=== PATIENT | female | born 1945 | race Caucasian/White ===

== ENCOUNTER 2017-01-18 12:56 | Inpatient (IN) | payer BC, MEDICARE ==
[~2017-01-18] VITALS: Ht 167.6 cm; Wt 116.1 kg
[~2017-01-18 12:56] MED LIST: ACET-2890 PO; ALBU1.252 AEROSOL; ALBU8.5H INH; CEPH-583 PO; CINN500C14 PO; CYAN500T2 PO; DIPH25TA25 PO; FLUT1DIS3 INH; LEVO50TA11 PO; LISI-621 PO; MAGN500C4 PO; MELO-267 PO; MULT-933 PO; POTA-12 PO; TRIA1TAB3 PO
--- OUTSIDE RECORDS SUMMARY | 2017-01-18 13:01 | XMS REPORT | Continuity of Care Document ---
Demographics Preferred Language Unknown Marital Status Unknown Protestant Affiliation Unknown Race Unknown Ethnic Group Unknown Author Author [facility] Organization [facility] Address Unknown Phone Unavailable Allergies Medications Problems Date Dx Coded Attending Type Code Diagnosis Diagnosed By 01/13/2017 TERESITA FUNES DF M43.16 Spondylolisthesis, lumbar region 01/13/2017 TERESITA FUNES DF M54.5 Low back pain Procedures Results Encounters ACCT No. Visit Date/Time Discharge Status Pt. Type Provider Facility Loc./Unit Complaint [id number] 12/15/2016 10:40:00 ACT Unknown [id number] 10/09/2016 09:48:00 ACT Unknown [id number] 08/17/2016 14:44:00 ACT Unknown [id number] 08/17/2016 14:16:00 ACT Unknown [id number] 08/17/2016 14:04:00 ACT Unknown [id number] 03/18/2016 08:45:00 ACT Unknown [id number] 02/12/2016 11:10:00 ACT Unknown [id number] 02/12/2016 11:10:00 ACT Unknown [id number] 01/15/2016 11:35:00 ACT Unknown [id number] 10/31/2015 17:57:00 ACT Unknown [id number] 11/14/2014 09:45:00 ACT Unknown [id number] 11/06/2014 08:06:00 ACT Unknown [id number] 07/20/2014 12:56:00 ACT Unknown [id number] 07/09/2014 11:23:00 ACT Unknown
--- OUTSIDE RECORDS SUMMARY | 2017-01-18 13:02 | XMS REPORT | Continuity of Care Document ---
Author Author [facility] Organization [facility] Address Unknown Phone Unavailable Support Name Relationship Address Phone CAROLINAELIASE DO Caregiver [address] [place] [address] [address] [place] [address] VICKY BEAULIEU DO Caregiver [facility] [address] [place], [place] [id number] OSCAR PETERS MD Caregiver [address] [phone] AYLEEN STOVALL Next Of Kin [address] [place] [address] Insurance Providers Payer Name Policy Number Subscriber Name Relationship [employer] Other [id number] Dot Stovall 16 Self Medicare Part A Only [id number] Dot Stovall 16 Self Advance Directives Directive Response Recorded Date/Time Dr Cody Resuscitation Status Full Code 08/14/14 6:40pm Chief Complaint and Reason for Visit Chief Complaint CHEST PAIN,HYPOXIA Reason for Visit Chest pain Hypoxia Chest pain Hypoxia Obese Hypertension Hypothyroid CAD (coronary artery disease) Asthma Sleep apnea PUD (peptic ulcer disease) Osteoarthritis Problems Medical Problems Problem Onset Date Status Chest pain 08/14/2014 Active Hypoxia Unknown Active Chest pain Unknown Active Hypoxia Unknown Active Obese Unknown Active Hypertension Unknown Active Hypothyroid Unknown Active CAD (coronary artery disease) Unknown Active Asthma Unknown Active Sleep apnea Unknown Active PUD (peptic ulcer disease) Unknown Active Osteoarthritis Unknown Active Medications Medication Dose Route Sig Days/Qty Instructions Order Date Discontinued Date Status Levothyroxine Sodium 25 Mcg PO DAILY 02/05/10 Active [Multivitamin] 02/05/10 Active Acetaminophen 1 PO DAILY 08/14/14 Active Gluc/Homer-MSM#1/Vit C/Robbie/Bor 1 DAILY 08/14/14 Active Lisinopril 10 Mg PO DAILY 08/14/14 Active Hydrocodone/Acetaminophen 1 Tab PO Q4H PRN PAIN 30 Qty 08/15/14 Active Social History Social History Problem Response Recorded Date/Time Smoking Status Former smoker 08/14/2014 7:55pm When did patient START smoking? AGE 16 08/14/2014 7:55pm When did patient STOP smoking? OCT 13, 1985 08/14/2014 7:55pm Hx Substance Use No 08/14/2014 6:04pm Hx Alcohol Use No 08/14/2014 6:04pm Has the pt used tobacco in the last 12 months No 08/14/2014 7:55pm Hospital Discharge Instructions Instructions: Care Instructions: Reason for Hospitalization: Chest pain I was in the hospital because (patient own words): "I HAVE PAIN IN MY LEFT BACK AND CHEST ALL DAY" Discharge Diet: as tolerated Discharge Activity: as tolerated--may return to work on Wednesday Follow Up Appointments: see Dr Peters for f/u in 1 week Follow up appointment with Dr. Peters scheduled for 08/27/14 at 9:15 a.m. Patient Instructions: should your symptoms return you could contact Dr Peters through the office or return to the ED for emergent evaluation Condition at time of discharge: Good Durable Medical Equipment: Thigh high SALVADOR hose Condition at time of discharge: Good Good Good General Information: n/a Condition at time of discharge: Fair Plan of Care Discharge Date 08/15/14 4:20pm Disposition 01 DISCHARGED HOME, SELF-CARE Instructions/Education Provided DI for Costochondritis DI for Chest Pain DI for Hypoxia Prescriptions See Medications Section Functional Status Query Response Date Recorded Physical Hygiene Self August 14, 2014 6:04pm Disabilities None August 14, 2014 6:04pm Devices Used None August 14, 2014 6:04pm Dressing Self August 14, 2014 6:04pm Ambulation Self August 14, 2014 6:04pm Diet Self August 14, 2014 6:04pm Mental Status Alert Oriented August 14, 2014 6:35pm Disabilities None August 14, 2014 6:04pm Devices Used None August 14, 2014 6:04pm Physical Hygiene Self August 14, 2014 6:04pm Dressing Self August 14, 2014 6:04pm Ambulation Self August 14, 2014 6:04pm Diet Self August 14, 2014 6:04pm Allergies, Adverse Reactions, Alerts Allergen Type Severity Reaction Status Last Updated Iodine Allergy Unknown WELTS, PASSES OUT WHEN INJECTED Active 08/14/14 Immunizations Name Given Type Hx Influenza Vaccination No Historical Hx Pneumococcal Vaccination N "2006 OR 2007" Historical Hx Influenza Vaccination No Historical Vital Signs Acute Vital Signs Vital Response Date/Time Temperature (Fahrenheit) 97.2 deg F (96.8 - 99.1) Temperature (Calculated Celsius) 36.06757 degrees C (36.0 - 37.3) Temperature Source Oral Pulse Rate (adult) 71 bpm (60 - 100) Respiratory Rate 18 breaths/min (10 - 20) O2 Sat by Pulse Oximetry 93 % (90 - 100) Oxygen Delivery Method Nasal Cannula Height 5 ft 6 in Weight 267 lb Body Mass Index 43.0 kg/m^2 Results Test Source Date Result Interp. Ref. Range Comments Activated Partial Thromboplast Time August 14, 2014 5:23pm 22.4 SEC L 24-36 Alanine Aminotransferase (ALT/SGPT) August 15, 2014 5:14am 34 U/L N 9- 52 Albumin August 15, 2014 5:14am 3.6 G/DL N 3.5-5.0 Albumin/Globulin Ratio August 15, 2014 5:14am 1.1 RATIO N 1.1-2.2 Alkaline Phosphatase August 15, 2014 5:14am 91 U/L N 38-126 Anion Gap August 15, 2014 5:14am 7 MEQ/L N 5-15 Arterial Blood Base Excess January 07, 2009 9:04pm 7.1 MMOL/L H -2.0-2.0 Is the patient on room air? YWhat is the Source? (Liters or Percent) ROOM AIR Arterial Blood HCO3 January 07, 2009 9:04pm 33 MEQ/L H 22-26 Is the patient on room air? YWhat is the Source? (Liters or Percent) ROOM AIR Arterial Blood Oxygen Content January 07, 2009 9:04pm Not Performed - Arterial Blood Partial Pressure CO2 January 07, 2009 9:04pm 54 MMHG H 34- 45 Is the patient on room air? YWhat is the Source? (Liters or Percent) ROOM AIR Arterial Blood Total CO2 January 07, 2009 9:04pm 35.1 MEQ/L H 23-27 Is the patient on room air? YWhat is the Source? (Liters or Percent) ROOM AIR Arterial Blood pH January 07, 2009 9:04pm 7.400 N 7.350-7.450 Is the patient on room air? YWhat is the Source? (Liters or Percent) ROOM AIR Arterial Blood pO2 at Patient Temp January 07, 2009 9:04pm 53 MMHG L 80- 100 Is the patient on room air? YWhat is the Source? (Liters or Percent) ROOM AIR Aspartate Amino Transf (AST/SGOT) August 15, 2014 5:14am 30 U/L DN 14- 36 B-Type Natriuretic Peptide January 08, 2009 2:50am 202 PG/ML H 15-100 BUN/Creatinine Ratio August 15, 2014 5:14am 25 RATIO N 6-26 Band Neutrophils # January 14, 2009 4:48am Not Performed - Band Neutrophils % January 14, 2009 4:48am Not Performed 0-6 Basophils # (Auto) August 15, 2014 5:14am 0.0 T/MM3 N 0-0.2 Basophils # (Manual) January 11, 2009 4:35am 0.1 T/MM3 N 0-0.2 Basophils % (Manual) January 11, 2009 4:35am 1.0 % N 0-2 Basophils (%) (Auto) August 15, 2014 5:14am 0.4 % N 0-2 Blood Gas Oxygen Saturation January 07, 2009 9:04pm 87.0 % L 95.0-98.0 Is the patient on room air? YWhat is the Source? (Liters or Percent) ROOM AIR Blood Gas Tidal Volume January 07, 2009 9:04pm Not Performed 0-1200 Blood Gas Vent Rate January 07, 2009 9:04pm Not Performed 0-30 Blood Urea Nitrogen August 15, 2014 5:14am 15.0 MG/DL N 7-17 Calcium Level August 15, 2014 5:14am 9.2 MG/DL N 8.4-10.2 Calculated Osmolality August 15, 2014 5:14am 276 MOSM/KG N 261-280 Carbon Dioxide Level August 15, 2014 5:14am 37 MEQ/L H 22-30 Chemistry Specimen Hemolysis August 15, 2014 10:41am 15 N 0-25 0-25: No Hemolysis.26-70: Slight Hemolysis - can falsely elevate K and Urine Protein. 71-285: Moderate Hemolysis - can falsely elevate K, Troponin I, CA 19-9, PTH, CSF GLucose, and Urine Protein, and can falsely decrease Phenytoin. 286-999: Gross Hemolysis - can falsely elevate K, Troponin I, CA 19-9, PTH, CSF Glucose, and Urine Protine, and can falsely decrease Phenytoin. Recommend specimen recollection. Chloride Level August 15, 2014 5:14am 99 MEQ/L N 98-107 Creatine Kinase MB January 08, 2009 9:50am 0.8 NG/ML N 0-3.4 Creatinine August 15, 2014 5:14am 0.6 MG/DL L 0.7-1.2 D-Dimer August 14, 2014 5:23pm 244 NG/ML H 0-224 SPECIMENS WERE REDRAWN LB <224 NG/ML=PRESUMPTIVE NEGATIVE FOR PE OR DVT >224 NG/ML=ADDITIONAL EVALUATION FOR PE OR DVT RECOMMENDED EKG January 07, 2009 10:37pm Complete - Eosinophils # (Auto) August 15, 2014 5:14am 0.5 T/MM3 N 0-0.5 Eosinophils # (Manual) January 11, 2009 4:35am 0.4 T/MM3 N 0-0.5 Eosinophils % (Manual) January 11, 2009 4:35am 5.0 % H 0-4 Eosinophils (%) (Auto) August 15, 2014 5:14am 5.3 % H 0-4 Globulin August 15, 2014 5:14am 3.2 G/DL N 2.4-3.6 Glomerular Filtration Rate Calc August 15, 2014 5:14am 99 - Glucose Level August 15, 2014 5:14am 96 MG/DL N 65-110 Hematocrit August 15, 2014 5:14am 46.6 % H 36-46 Hemoglobin August 15, 2014 5:14am 14.5 GM/DL N 12-16 Icterus Index August 15, 2014 5:14am < 2 0-7 Immature Granulocyte # (Auto) August 15, 2014 5:14am 0.01 T/MM3 N 0.00 -0.03 Immature Granulocyte % (Auto) August 15, 2014 5:14am 0.1 % N 0.0-0.5 Lab Scanned Report February 13, 2010 1:44pm REFERENCE LAB [id number] - Lymphocytes # (Auto) August 15, 2014 5:14am 2.4 T/MM3 N 1-4.8 Lymphocytes # (Manual) January 14, 2009 4:48am 1.8 T/MM3 N 1-4.8 Lymphocytes % (Manual) January 14, 2009 4:48am 9.0 % L 23-45 Lymphocytes (%) (Auto) August 15, 2014 5:14am 25.6 % N 23-45 Magnesium Level January 10, 2009 7:10am 1.7 MG/DL N 1.6-2.3 Mean Corpuscular Hemoglobin August 15, 2014 5:14am 30.9 UUG N 26-34 Mean Corpuscular Hemoglobin Concent August 15, 2014 5:14am 31.1 GM/DL N 31-37 Mean Corpuscular Volume August 15, 2014 5:14am 99.1 UM3 N 80-100 Mean Platelet Volume August 15, 2014 5:14am 10.4 UM3 N 9.4-12.4 Metamyelocytes # January 11, 2009 4:35am 0.1 T/MM3 - Metamyelocytes % January 11, 2009 4:35am 1.0 % H 0-0 Monocytes # (Auto) August 15, 2014 5:14am 0.8 T/MM3 N 0-0.8 Monocytes # (Manual) January 11, 2009 4:35am 0.9 T/MM3 H 0-0.8 Monocytes % (Manual) January 11, 2009 4:35am 11.0 % H 0-9.0 Monocytes (%) (Auto) August 15, 2014 5:14am 7.9 % N 0-9.0 DZ-Rid-V-Type Natriuretic Peptide August 14, 2014 5:23pm 251 PG/ML H 0 -175 Rule in cut points: <50 years old=450; 50-75 years old=900; >75 years old=1800; When utilizing ProBNP rule-in cut points, adjustment for impaired renal function is typically not required. Neutrophils # (Auto) August 15, 2014 5:14am 5.7 T/MM3 N 1.8-7.7 Neutrophils # (Manual) January 14, 2009 4:48am 17.8 T/MM3 H 1.8-7.7 Neutrophils % (Manual) January 14, 2009 4:48am 91.0 % H 33-66 Neutrophils (%) (Auto) August 15, 2014 5:14am 60.7 % N 33-66 Ova and Parasites (LAB) February 05, 2010 4:55pm Ref lab rpt scanned - - -- 02/13/10 1348 ---OAP previously reported as: SENT OUT Oxygen Delivery Method (LAB) January 07, 2009 9:04pm Room air - Is the patient on room air? YWhat is the Source? (Liters or Percent) ROOM AIR Platelet Count August 15, 2014 5:14am 291 T/MM3 N 130-400 Potassium Level August 15, 2014 5:14am 3.9 MEQ/L N 3.6-5 Prothromb Time International Ratio August 14, 2014 5:23pm 1.01 N 0.81- 1.09 THERAPUTIC RANGE=2.00-3.00 FOR ANTI-THROMBOSIS THERAPUTIC RANGE=2.50- 3.50 FOR IMPLANTED VALVE RDW Standard Deviation August 15, 2014 5:14am 51.9 FL H 36.9-50.2 Red Blood Count August 15, 2014 5:14am 4.70 M/MM3 N 4.00-5.20 Sodium Level August 15, 2014 5:14am 143 MEQ/L N 134-144 Tests Not Done January 09, 2009 5:34am Not done - Has specimen been collected/obtained? Y Thyroid Stimulating Hormone (TSH) August 14, 2014 6:40pm 1.48 MIU/L N 0.47-4.68 COMMENT ON BLOOD IN LAB Total Bilirubin August 15, 2014 5:14am 1.10 MG/DL N 0.20-1.30 Total Creatine Kinase January 08, 2009 9:50am 237 U/L H 30-135 Total Protein August 15, 2014 5:14am 6.8 G/DL N 6.3-8.2 Troponin I August 15, 2014 10:41am < 0.012 ng/ml 0-0.12 Turbidity August 15, 2014 5:14am < 20 0-20 Urine Amorphous Phosphates February 05, 2010 4:00pm Many - Has specimen been collected/obtained? Y Urine Bacteria August 14, 2014 8:00pm 1+ H - COMMENT C&S IF INDICATEDHas specimen been collected/obtained? Y Urine Bilirubin August 14, 2014 8:00pm Negative - COMMENT C&S IF INDICATEDHas specimen been collected/obtained? Y Urine Blood August 14, 2014 8:00pm Negative - COMMENT C&S IF INDICATEDHas specimen been collected/obtained? Y Urine Collection Type August 14, 2014 8:00pm Cleancatch-midstream - COMMENT C&S IF INDICATEDHas specimen been collected/obtained? Y Urine Color August 14, 2014 8:00pm Yellow - COMMENT C&S IF INDICATEDHas specimen been collected/obtained? Y Urine Culture Indicated February 05, 2010 4:00pm Cult set up - Has specimen been collected/obtained? Y Urine Glucose (UA) August 14, 2014 8:00pm Negative - COMMENT C&S IF INDICATEDHas specimen been collected/obtained? Y Urine Ketones August 14, 2014 8:00pm Negative - COMMENT C&S IF INDICATEDHas specimen been collected/obtained? Y Urine Leukocyte Esterase August 14, 2014 8:00pm 1+ H - COMMENT C&S IF INDICATEDHas specimen been collected/obtained? Y Urine Mucus February 05, 2010 4:00pm Present - Has specimen been collected/obtained? Y Urine Nitrite August 14, 2014 8:00pm Negative - COMMENT C&S IF INDICATEDHas specimen been collected/obtained? Y Urine Protein August 14, 2014 8:00pm Negative - COMMENT C&S IF INDICATEDHas specimen been collected/obtained? Y Urine RBC August 14, 2014 8:00pm Trace /HPF - COMMENT C&S IF INDICATEDHas specimen been collected/obtained? Y Urine Specific [place] August 14, 2014 8:00pm 1.010 L - COMMENT C&S IF INDICATEDHas specimen been collected/obtained? Y Urine Squamous Epithelial Cells August 14, 2014 8:00pm 0-5 - COMMENT C&S IF INDICATEDHas specimen been collected/obtained? Y Urine Turbidity August 14, 2014 8:00pm Clear - COMMENT C&S IF INDICATEDHas specimen been collected/obtained? Y Urine Urobilinogen August 14, 2014 8:00pm 0.2 EU/DL - COMMENT C&S IF INDICATEDHas specimen been collected/obtained? Y Urine WBC August 14, 2014 8:00pm 1-3 /HPF - COMMENT C&S IF INDICATEDHas specimen been collected/obtained? Y Urine pH August 14, 2014 8:00pm 7.5 - COMMENT C&S IF INDICATEDHas specimen been collected/obtained? Y White Blood Count August 15, 2014 5:14am 9.5 T/MM3 N 4.5-11.0 Blood Culture Blood January 07, 2009 8:50pm NO GROWTH AFTER 5 DAYS Stool Culture Stool February 05, 2010 4:55pm Gram Stain Sputum-Induced Sputum January 08, 2009 12:15am Urine Culture Urine, Clean Catch Voided February 09, 2010 10:15am Staphylococcus Epidermidis Name: DOT STOVALL Unit #: [id number] : 1945 Sex: F Loc / Svc: ED DOS: Signed Report #: [id number] DIAGNOSTIC IMAGING REPORT TYPE OF EXAM: CHEST 1 VIEW Dictated By: BENITEZ PARKER MD INDICATION: ITS.REASON: chest pain COMPARISON: 02/10/2010 CHEST 1 VIEW: Evidence of mild cardiomegaly and bilateral basilar pleural effusions. No evidence of a lung infiltrate. There monitoring leads. IMPRESSION: Cardiomegaly and bilateral effusions. The diagnosis could be CHF. . Procedures No known history of procedures. Encounters Encounter Location Date/Time Discharged Inpatient [facility] 08/14/14 6:40pm Recent Diagnosis Chest pain Hypoxia Chest pain Hypoxia Obese Hypertension Hypothyroid CAD (coronary artery disease) Asthma Sleep apnea PUD (peptic ulcer disease) Osteoarthritis
--- NOTE | 2017-01-18 13:31 | ERPDOC ---
Departure Disposition Decision Date: Jan 18, 2017 Disposition Decision Time: 15:07 (VALDO PATEL APRN) Disposition: 01 DISCHARGED HOME, SELF-CARE Impression Impression (ZELDAVALDO GALLEGO APRN) Impression: Primary Impression: Elevated troponin Additional Impression: Hypoxia Severity: Moderate (VALDO PATEL N TOOL DISTRIBUTOR) Condition: Stable Seen By: Mid-level only (VALDO PATEL APRN) Referrals: CHANTALE PARK APRN (Family) Problems/Meds/Labs Reviewed?: Yes Medications reviewed and manag: Yes (VALDO PATEL APRN) Follow up care ordered?: Yes Mental Status: Alert (VALDO PATEL APRN) HPI - Dyspnea General Chief Complaint: Dyspnea/Respdistress Stated Complaint: VERTIGO, DIFF BREATHING, LOW O2 STAT Time Seen by Provider: 13:11 Source: patient Exam Limitations: no limitations (VALDO PATEL APRN) HPI - Dyspnea Initial Comments For the last 4 days she has had some trouble with vertigo and shortness of breath. Tried to contact her PCP office this morning and they could not work her in. Went to immediate care and her O2 sats were 70% and so she was sent to ER for evaluation. She does have O2 at home that she is supposed to wear overnight. She has not worn this much at all the last 3 months however. She was in the 70s upon arrival to ER and placed on 3.5 L NC and sats are now 92%. She does have a history of double pneumonia and strep throat about a year ago. Denies any chest pain at all. Occurred At: home Onset/Timing: Gradual Duration: other (Over the last 4 days) Severity: moderate Activities at Onset: activity Prior Episodes/Possible Cause: occasional episodes Associated Symptoms: cough (harsh dry cough), fever/chills (subjective, did not take her temp), malaise, shortness of breath, weakness, DENIES: chest pain, diaphoresis, headaches, loss of appetite, nausea/vomiting, rash, seizure, syncope Aspirin Treatment Today: unknown Hx of Similar Symptoms: No (VALDO PATEL N TOOL DISTRIBUTOR) Allergies: Coded Allergies: iodine (Verified Allergy, Unknown, WELTS, PASSES OUT WHEN INJECTED, ) Past History Past Medical History Metabolic: hypertension, hypothyroidism Cardiac: CAD Respiratory: asthma GI: ulcers Musculoskeletal: osteoarthritis (NOLD,VALDO N TOOL DISTRIBUTOR) Surgical History General: appendix, gallbladder, tonsils Cardiac: cardiac cath Reproductive/: D&C, tubal ligation Joint: knee (NOLD,VALDO N TOOL DISTRIBUTOR) Family History Family PMH: FOUND: cancer, diabetes, hypertension (NOLD,VALDO N TOOL DISTRIBUTOR) Vaccines Hx Influenza Vaccination: No Hx Pneumococcal Vaccination: No ("2005 OR 2006") (NOLD,VALDO N TOOL DISTRIBUTOR) Social History Substance Use Type: does not use Alcohol Intake: none Sexuality: male partner (NOLD,VALDO N TOOL DISTRIBUTOR) Review of Systems Constitutional Constitutional: dizziness, fatigue, weakness, DENIES: chills, fever (NOLD, VALDO N TOOL DISTRIBUTOR) Eyes Vision: DENIES: blurring, double vision (NOLD,VALDO N TOOL DISTRIBUTOR) ENMT Ears: DENIES: drainage, pain Sinuses: DENIES: congestion, rhinorrhea Mouth/Throat: DENIES: painful swallowing, scratchy throat, sore throat, sores, ulcers (NOLD,VALDO N TOOL DISTRIBUTOR) Cardiovascular Cardiac: dyspnea on exertion, DENIES: chest pain, orthopnea Rhythm/Rate: DENIES: irregular beat, palpitations Vascular: DENIES: pedal edema, unilateral swelling (NOLD,VALDO N TOOL DISTRIBUTOR) Pulmonary Respiratory: cough, dyspnea, DENIES: sputum, tachypnea (NOLD,VALDO N TOOL DISTRIBUTOR) GI Upper Abdomen: DENIES: nausea, pain, vomiting Lower Abdomen: DENIES: constipation, diarrhea, pain (NOLD,VALDO N TOOL DISTRIBUTOR) Integumentary Skin: DENIES: rash (NOLD,VALDO N TOOL DISTRIBUTOR) Neurological General: weakness, DENIES: headache, numbness, tingling (NOLD,VALDO N TOOL DISTRIBUTOR) Physical Exam General General Nourishment: well nourished, well developed, appears stated age, no acute distress, adult General Body Habitus: well groomed Vitals and Pain First Documented Vital Signs Date Time Temp Pulse Resp B/P Pulse Ox O2 Delivery O2 Flow Rate FiO2 01/18/17 13:02 97.5 81 18 206/98 78 Room Air 01/18/17 13:04 4.00 Weight: Kilograms: Height (feet): 5 Height (inches): 66.00 Triage Pain Scale: RN VS reviewed by Provider: Yes (VALDO PATEL APRN) Normal Exams: Neck: Full range of motion, without adenopathy, JVD, bruits or thyromegaly Chest/Resp: Clear all gonzalez, with good airflow, and symmetry bilaterally CV: Regular rate and rhythm, without murmur or gallop, Pulses 2+ all extremities, capillary refill, <2 seconds all ext., no pedal edema noted Abdomen: Bowel sounds positive, soft, non-tender, non-distended, no hepatosplenomegaly, masses or bruits noted Lymphatic: No lymphadenopathy, or lymphedema noted Integumentary: No rashes, hives, or bruising noted Neurologic: Patient is alert, and oriented Psychiatric: Patient exhibits, appropriate attention, emotion and affect (VALDO PATEL APRN) ENMT (brief) ENMT Brief: FOUND: TM clear, TM good light reflex, ear canals clear, mucosa moist, normal dentition, normal tonsils, NOT FOUND: lesions, nasal erythema, nasal exudate, nasal swelling, petechiae, pharnyx erythema, tonsillar deviation (VALDO PATEL TOOL DISTRIBUTOR) Differential Diagnoses Considering: Acute Bronchitis, Acute [place], Acute Respiratory Failure, Pneumonia, Pulmonary Embolus, Viral Syndrome (VALDO PATEL APRN) Progress Results/Orders Orders Procedure Category Date Status Time EKG EKG 01/18/17 Logged Troponin I W LAB 01/18/17 Complete Hemolysis Index Chest, Pa & Lateral RAD 01/18/17 Resulted Cbc W/Auto LAB 01/18/17 Complete Diff-Reflex Manual Bmp - Basic Metabolic LAB 01/18/17 Complete Panel Iv Lock (Ed Only) EDM 01/18/17 Transmitted 13:26 Probnp LAB 01/18/17 Complete 14:14 Place In Facility As: ADMIT 01/18/17 Transmitted Telemetry JORGITO 01/18/17 In Process 15:04 Compression Type Scd/ JORGITO 01/18/17 In Process Kayode Hose 15:04 Troponin I W LAB 01/18/17 Logged Hemolysis Index 14:00 Troponin I W LAB 01/18/17 Logged Hemolysis Index 20:00 Troponin I W LAB 01/19/17 Verified Hemolysis Index 02:00 Lab Results Laboratory Tests Test 01/18/17 14:09 White Blood Count 11.2T/MM3 Red Blood Count 5.15M/MM3 Hemoglobin 15.8GM/DL Hematocrit 52.3% Mean Corpuscular Volume 101.6UM3 Mean Corpuscular Hemoglobin 30.7UUG Mean Corpuscular Hemoglobin Concent 30.2GM/DL RDW Standard Deviation 57.7FL Platelet Count 243T/MM3 Mean Platelet Volume 10.4UM3 Immature Granulocyte % (Auto) 0.4% Neutrophils (%) (Auto) 67.5% Lymphocytes (%) (Auto) 21.5% Monocytes (%) (Auto) 7.1% Eosinophils (%) (Auto) 2.8% Basophils (%) (Auto) 0.7% Absolute Immature Granulocyte (auto 0.04T/MM3 Absolute Neutrophils (auto) 7.6T/MM3 Absolute Lymphocytes (auto) 2.4T/MM3 Absolute Monocytes (auto) 0.8T/MM3 Absolute Eosinophils (auto) 0.3T/MM3 Absolute Basophils (auto) 0.1T/MM3 Turbidity < 20 Sodium Level 146MEQ/L Potassium Level 4.7MEQ/L Chloride Level 100MEQ/L Carbon Dioxide Level 36MEQ/L Anion Gap 10MEQ/L Blood Urea Nitrogen 18.0MG/DL Creatinine 0.6MG/DL Glomerular Filtration Rate Calc 98 BUN/Creatinine Ratio 30RATIO Glucose Level 97MG/DL Calculated Osmolality 283MOSM/KG Calcium Level 9.6MG/DL Icterus Index < 2 Troponin I 0.144ng/ml WL-Fuw-K-Type Natriuretic Peptide 1310PG/ML Chemistry Specimen Hemolysis < 15 (NOLD,VALDO N TOOL DISTRIBUTOR) Progress Progress WBC is 11.2 with 67.2 neutrophils. Na is 146, BUN-18, creatinine-0.6. Troponin is elevated at 0.144, BNP is 1310. Chest xray does show mild congestive failure. Her O2 is stable at 94% on 3.5 L per NC. She does deny any chest pain at this time and states that she has not had any chest pain at all over the weekend and since symptoms have started. She has been evaluated by a welder production line combination but it was about 10 years ago for a stress test. Was Dr Lin and has not followed up since. No history of CHF. Did speak with Dr Escobar regarding elevated troponin, HPI, and other labs. Will be able to see patient at [facility] in consult. Spoke with Dr Ayers as well about the same and he will accept patient for admission at this time. (VALDO PATEL APRN) EKG EKG : Rate: 60-100 Rhythm: sinus [place]: normal QRS: normal Intervals: normal ST/T: non-specific changes Interpreted by: signing physician (LEE SHORT MD) Xray Xray : Reason for Exam: dyspnea Xray: CXR PA/Lat Interpretation: Abnormal (findings suggestive of mild congestive failure) (VALDO PATEL APRN) VALDO PATEL APRN Jan 18, 2017 13:31 LEE SHORT MD Jan 22, 2017 18:58
[2017-01-18] MEDS ORDERED: CALC-52 PO (13:38)
[2017-01-18] MEDS ORDERED: ACET1TAB25 PO (13:38)
[2017-01-18] MEDS ORDERED: CEFD300C3 PO (13:38)
--- NOTE | 2017-01-18 14:09 | DI ---
INDICATION: ITS.REASON: hypoxia PROCEDURE: CHEST 2-VIEWS UPRIGHT (PA \T\ LAT) Encounter: Initial COMPARISON: July 09, 2015 FINDINGS: Small bilateral pleural effusions with lower lobe airspace opacities. Upper lung gonzalez are clear. No pneumothorax. Cardiac silhouette is mildly enlarged but unchanged. Mediastinal contours are stable. Pulmonary vascularity is slightly prominent. Impression: Findings of mild congestive failure. .
[2017-01-18 14:18] LABS: BASOPHILS # (AUTO) 0.1 T/MM3 (0-0.2); BASOPHILS % (AUTO) 0.7 % (0-2); EOSINOPHILS # (AUTO) 0.3 T/MM3 (0-0.5); EOSINOPHILS % (AUTO) 2.8 % (0-4); HCT - HEMATOCRIT 52.3 % (36-46); HGB - HEMOGLOBIN 15.8 GM/DL (12-16); IMMATURE GRANULOCYTE # (AUTO) 0.04 T/MM3 (0.00-0.03); IMMATURE GRANULOCYTE % (AUTO) 0.4 % (0.0-0.5); LYMPHOCYTES # (AUTO) 2.4 T/MM3 (1-4.8); LYMPHOCYTES % (AUTO) 21.5 % (23-45); MEAN CORPUSCULAR HGB 30.7 UUG (26-34); MEAN CORPUSCULAR HGB CONC(MCHC 30.2 GM/DL (31-37); MEAN CORPUSCULAR VOLUME 101.6 UM3 (80-100); MEAN PLATELET VOLUME 10.4 UM3 (9.4-12.4); MONOCYTES # (AUTO) 0.8 T/MM3 (0-0.8); MONOCYTES % (AUTO) 7.1 % (0-9.0); NEUTROPHILS #(AUTO)-ABSOLUTE 7.6 T/MM3 (1.8-7.7); NEUTROPHILS % (AUTO) 67.5 % (33-66); RED BLOOD COUNT 5.15 M/MM3 (4.00-5.20); WBC - WHITE BLOOD COUNT 11.2 T/MM3 (4.5-11.0)
--- OUTSIDE RECORDS SUMMARY | 2017-01-18 14:25 | XMS REPORT | Continuity of Care Document ---
Demographics Preferred Language Unknown Marital Status Unknown Yarsanism Affiliation Unknown Race Unknown Ethnic Group Unknown Author Author [facility] Organization [facility] Address Unknown Phone Unavailable Allergies Medications Problems Date Dx Coded Attending Type Code Diagnosis Diagnosed By 01/13/2017 TERESITA FUNES DF M43.16 Spondylolisthesis, lumbar region 01/13/2017 TERESITA FUNES DF M54.5 Low back pain Procedures Results Encounters ACCT No. Visit Date/Time Discharge Status Pt. Type Provider Facility Loc./Unit Complaint [id number] 12/15/2016 10:40:00 ACT Unknown [id number] 10/09/2016 09:48:00 ACT Unknown [id number] 08/17/2016 14:44:00 ACT Unknown [id number] 08/17/2016 14:16:00 ACT Unknown [id number] 08/17/2016 14:04:00 ACT Unknown [id number] 03/18/2016 08:45:00 ACT Unknown [id number] 02/12/2016 11:10:00 ACT Unknown [id number] 02/12/2016 11:10:00 ACT Unknown [id number] 01/15/2016 11:35:00 ACT Unknown [id number] 10/31/2015 17:57:00 ACT Unknown [id number] 11/14/2014 09:45:00 ACT Unknown [id number] 11/06/2014 08:06:00 ACT Unknown [id number] 07/20/2014 12:56:00 ACT Unknown [id number] 07/09/2014 11:23:00 ACT Unknown
[2017-01-18 14:26] LABS: ANION GAP 10 MEQ/L (5-15); BUN/CREATININE RATIO 30 RATIO (6-26); CALCIUM 9.6 MG/DL (8.4-10.2); CHLORIDE 100 MEQ/L (98-107); CO2 - CARBON DIOXIDE 36 MEQ/L (22-30); CREATININE 0.6 MG/DL (0.7-1.2); GLOMERULAR FILTRATION RATE 98; GLUCOSE 97 MG/DL (65-110); POTASSIUM 4.7 MEQ/L (3.6-5); SODIUM 146 MEQ/L (134-144)
--- OUTSIDE RECORDS SUMMARY | 2017-01-18 14:26 | XMS REPORT | Continuity of Care Document ---
Author Author [facility] Organization [facility] Address Unknown Phone Unavailable Support Name Relationship Address Phone CAROLINAELIASE DO Caregiver [address] [place] [address] [address] [place] [address] VICKY BEAULIEU DO Caregiver [facility] [address] [place], [place] [id number] OSCAR PETERS MD Caregiver [address] [phone] AYLEEN STOVALL Next Of Kin [address] [place] [address] Insurance Providers Payer Name Policy Number Subscriber Name Relationship [employer] Other [id number] Dot Stovall 16 Self Medicare Part A Only [id number] Dot Stovall 16 Self Advance Directives Directive [...] F (96.8 - 99.1) Temperature (Calculated Celsius) 36.66209 degrees C (36.0 - 37.3) Temperature Source [...] Report February 13, 2010 1:44pm REFERENCE LAB [id number] - Lymphocytes # (Auto) August 15, 2014 [...] 15, 2014 5:14am 7.9 % N 0-9.0 MA-Ptw-B-Type Natriuretic Peptide August 14, 2014 5:23pm 251 [...] INDICATEDHas specimen been collected/obtained? Y Urine Specific [place] August 14, 2014 8:00pm 1.010 L - [...] Staphylococcus Epidermidis Name: DOT STOVALL Unit #: [id number] : 1945 Sex: F Loc / Svc: ED DOS: Signed Report #: [id number] DIAGNOSTIC IMAGING REPORT TYPE OF EXAM: CHEST 1 VIEW Dictated By: BENTIEZ PARKER MD INDICATION: ITS.REASON: chest pain COMPARISON: 02/10/2010 CHEST 1 VIEW: Evidence of mild cardiomegaly and bilateral basilar pleural effusions. No evidence of a lung infiltrate. There monitoring leads. IMPRESSION: Cardiomegaly and bilateral effusions. The diagnosis could be CHF. . Procedures No known history of procedures. Encounters Encounter Location Date/Time Discharged Inpatient [facility] 08/14/14 6:40pm Recent Diagnosis Chest pain Hypoxia Chest pain Hypoxia Obese Hypertension Hypothyroid CAD (coronary artery disease) Asthma Sleep apnea PUD (peptic ulcer disease) Osteoarthritis
--- NOTE | 2017-01-18 15:24 | NUR ---
ADMIT ROOM ASSIGNED BY KARLOS THOMPSON 155
--- NOTE | 2017-01-18 15:44 | NUR ---
REPORT [facility]
[2017-01-18] MEDS ORDERED: ENOXAPARIN 40 MG/0.4 ML INJECTION SQ ONE (15:45)
[2017-01-18] MEDS ORDERED: ASPIRIN *EC* 81mg TABLET PO ONE (15:45)
--- NOTE | 2017-01-18 15:59 | CONSPD ---
JANETT MCADAMS EHS TEACHER 01/18/17 1558: Consultation Info Date DATE: 01/18/17 TIME: 15:49 Date of Consultation: Jan 18, 2017 Attending Physician: Brian Ayers MD Reason for Consultation: elevated troponin HPI - Adult Date DATE: 01/18/17 TIME: 15:49 General Date of Admission Date of Admission: Chief Complaint: Dizziness and SOB History of Present Illness Dot is a 71 year old female who has noticed dizziness and shortness of breath since this past Wednesday. Today she went to immediate care when she could not be seen by her PCP Dr. Adams and was found to have O2 saturations in the 70s. She was then sent to the [facility] ED for further evaluation. She reports cough which began on . She denies recent travel or surgery. States that she did go to an appointment with an orthopedic Doctor in [place] last week due to her herniated discs in her back. She has home O2 which she states she is supposed to wear at night, but has not been. She reports former cigarette smoking which she quit in 1985. She denies fever or chills, syncope, chest pain, tightness or pressure, N/V/D, urinary changes. Past Medical History Past Medical History Metabolic: hypertension, hypothyroidism, DENIES: diabetes, hypercholesterolemia Cardiac: CAD Respiratory: asthma GI: ulcers Musculoskeletal: osteoarthritis Surgical History General: appendix, gallbladder, tonsils Cardiac: cardiac cath Reproductive/: D&C, tubal ligation Joint: knee Current Medications Home Meds Reported Medications Calcium Carbonate (Calcium) 500 Mg Tablet, 1 TAB PO DAILY 01/18/17 Acetaminophen with Codeine (Acetaminophen-Cod #3 Tablet) 300-30 Tablet, 1 TAB PO TID Y for PAIN 01/18/17 Cefdinir (Cefdinir) 300 Mg Capsule, 300 MG PO BID 01/18/17 Meloxicam (Meloxicam) Unknown Strength Tablet, PO DAILY 04/08/16 Multivitamin (Multi-Day Vitamins) 1 Each Tablet, 1 TAB PO DAILY 04/08/16 Cyanocobalamin (Vitamin B-12) (Vitamin B-12) Unknown Strength Tablet, PO DAILY 04/08/16 Cinnamon Bark (Cinnamon) 500 Mg Capsule, 500 MG PO DAILY 04/08/16 Diphenhydramine HCl (Diphenhydramine HCl) 25 Mg Tablet, 25 MG PO HS 04/08/16 Acetaminophen (Acetaminophen) 650 Mg Tablet.er, 1300 MG PO QAM Y for PAIN 04/08/16 Potassium Chloride (Potassium Chloride) Unknown Strength Tab.er.prt, PO DAILY 04/08/16 Magnesium Oxide (Magnesium) 500 Mg Capsule, 500 MG PO BID 04/08/16 Albuterol Sulfate (Albuterol Sulfate) 1.25 Mg/3 Ml Vial.neb, 1.25 MG AEROSOL PRN 04/08/16 Fluticasone/Salmeterol (Advair 250-50 Diskus) 1 Disk W/Dev Inhaler, 1 PUFF INH PRN 04/08/16 Albuterol Sulfate (Proair HFA 90 mcg/actuation) 8.5 Gm Hfa.aer.ad, 1 PUFF INH PRN 04/08/16 Triamterene/Hydrochlorothiazid (Triamterene-Hctz 37.5-25 mg Tb) 1 Each Tablet, 1 TAB PO DAILY 04/08/16 Lisinopril (Lisinopril) 20 Mg Tablet, 20 MG PO DAILY Y for PRN ORDERS 04/08/16 Levothyroxine Sodium (Levothyroxine Sodium) 50 Mcg Tablet, 50 MCG PO ACB 04/08/16 Allergies: Coded Allergies: iodine (Verified Allergy, Unknown, WELTS, PASSES OUT WHEN INJECTED, ) Family History FOUND: cancer, diabetes, hypertension Vaccines NO "2005 OR 2007" Social History Smoking Status: Former smoker Quit Date: Oct 13, 1985 Substance Use Type: does not use Alcohol Intake: none Marital Status: Sexuality: male partner Household Members: spouse Review of Systems Constitutional: REPORTS: dizziness, DENIES: chills, fever, syncope Eyes Vision: DENIES: double vision ENMT Balance: vertigo Mouth/Throat: DENIES: sore throat Cardiovascular dyspnea on exertion, DENIES: chest pain, orthopnea, paroxysmal nocturnal dysp Rhythm/Rate: DENIES: irregular beat, palpitations Vascular: pedal edema Pulmonary Respiratory: cough, dyspnea GI Upper Abdomen: DENIES: nausea, vomiting Lower Abdomen: DENIES: diarrhea General: DENIES: dysuria Musculoskeletal General: pain (back) Integumentary Skin: DENIES: rash, sores Neurological General: DENIES: headache, numbness, syncope, weakness All Other Systems All Other Systems: Reviewed (remainder of 10-point ROS Neg.) Physical Exam General General Nourishment: well nourished, well developed, obese, apparent age Vital Signs Vital Signs Date Time Temp Pulse Resp B/P Pulse Ox O2 Delivery O2 Flow Rate FiO2 01/18/17 13:04 78 Nasal Cannula 4.00 94 01/18/17 13:02 97.5 81 18 206/98 Height (Feet): 5 Height (Inches): 6.00 ENMT Brief: FOUND: mucosa moist Neck Brief: FOUND: carotid bruits (left) Respiratory Brief: FOUND: equal bilaterally, rales (bibasilar), NOT FOUND: clear all gonzalez Cardiovascular (brief) Cardiac Brief: FOUND: pedal edema, regular rate, regular rhythm, NOT FOUND: click, gallop, murmur Abdomen (brief) Abdominal Brief: FOUND: BS normo active x4, soft Integumentary (brief) Integumentary Brief: FOUND: dry, pink, warm Neurologic RN Documented GCS Eye Opening: Verbal: Motor: Total: Psychiatric (brief) FOUND: alert, oriented Laboratory Laboratory Tests Test 01/18/17 14:09 01/18/17 15:45 White Blood Count 11.2T/MM3 Red Blood Count 5.15M/MM3 Hemoglobin 15.8GM/DL Hematocrit 52.3% Mean Corpuscular Volume 101.6UM3 Mean Corpuscular Hemoglobin 30.7UUG Mean Corpuscular Hemoglobin Concent 30.2GM/DL RDW Standard Deviation 57.7FL Platelet Count 243T/MM3 Mean Platelet Volume 10.4UM3 Immature Granulocyte % (Auto) 0.4% Neutrophils (%) (Auto) 67.5% Lymphocytes (%) (Auto) 21.5% Monocytes (%) (Auto) 7.1% Eosinophils (%) (Auto) 2.8% Basophils (%) (Auto) 0.7% Absolute Immature Granulocyte (auto 0.04T/MM3 Absolute Neutrophils (auto) 7.6T/MM3 Absolute Lymphocytes (auto) 2.4T/MM3 Absolute Monocytes (auto) 0.8T/MM3 Absolute Eosinophils (auto) 0.3T/MM3 Absolute Basophils (auto) 0.1T/MM3 Turbidity < 20 Sodium Level 146MEQ/L Potassium Level 4.7MEQ/L Chloride Level 100MEQ/L Carbon Dioxide Level 36MEQ/L Anion Gap 10MEQ/L Blood Urea Nitrogen 18.0MG/DL Creatinine 0.6MG/DL Glomerular Filtration Rate Calc 98 BUN/Creatinine Ratio 30RATIO Glucose Level 97MG/DL Calculated Osmolality 283MOSM/KG Calcium Level 9.6MG/DL Icterus Index < 2 Troponin I 0.144ng/ml FC-Kxt-N-Type Natriuretic Peptide 1310PG/ML Chemistry Specimen Hemolysis < 15 Arterial Blood pH 7.390 Arterial Blood Partial Pressure CO2 62MMHG Arterial Blood pO2 at Patient Temp 68MMHG Arterial Blood HCO3 38MEQ/L Arterial Blood Total CO2 39.4MEQ/L Arterial Blood Oxygen Saturation 93.0% Arterial Blood Base Excess 10.3MMOL/L Oxygen Delivery Method (LAB) Nasal cannula,liters Blood Gas Oxygen Liter Flow 3.5 Blood Gas Oxygen Percent Given Blood Gas Vent Rate Blood Gas Tidal Volume ML Laboratory Tests Test 01/18/17 14:09 White Blood Count 11.2T/MM3 Red Blood Count 5.15M/MM3 Hemoglobin 15.8GM/DL Hematocrit 52.3% Mean Corpuscular Volume 101.6UM3 Mean Corpuscular Hemoglobin 30.7UUG Mean Corpuscular Hemoglobin Concent 30.2GM/DL RDW Standard Deviation 57.7FL Platelet Count 243T/MM3 Mean Platelet Volume 10.4UM3 Immature Granulocyte % (Auto) 0.4% Neutrophils (%) (Auto) 67.5% Lymphocytes (%) (Auto) 21.5% Monocytes (%) (Auto) 7.1% Eosinophils (%) (Auto) 2.8% Basophils (%) (Auto) 0.7% Absolute Immature Granulocyte (auto 0.04T/MM3 Absolute Neutrophils (auto) 7.6T/MM3 Absolute Lymphocytes (auto) 2.4T/MM3 Absolute Monocytes (auto) 0.8T/MM3 Absolute Eosinophils (auto) 0.3T/MM3 Absolute Basophils (auto) 0.1T/MM3 Turbidity < 20 Sodium Level 146MEQ/L Potassium Level 4.7MEQ/L Chloride Level 100MEQ/L Carbon Dioxide Level 36MEQ/L Anion Gap 10MEQ/L Blood Urea Nitrogen 18.0MG/DL Creatinine 0.6MG/DL Glomerular Filtration Rate Calc 98 BUN/Creatinine Ratio 30RATIO Glucose Level 97MG/DL Calculated Osmolality 283MOSM/KG Calcium Level 9.6MG/DL Icterus Index < 2 Troponin I 0.144ng/ml KR-Toz-Y-Type Natriuretic Peptide 1310PG/ML Chemistry Specimen Hemolysis < 15 Radiology DATE OF EXAM: 01/18/17 ORDERING DOCTOR: VALDO PATEL APRN TYPE OF EXAM: CHEST, PA & LATERAL REASON FOR EXAM: hypoxia INDICATION: ITS.REASON: hypoxia PROCEDURE: CHEST 2-VIEWS UPRIGHT (PA \\T\\ LAT) Encounter: Initial COMPARISON: July 09, 2015 FINDINGS: Small bilateral pleural effusions with lower lobe airspace opacities. Upper lung gonzalez are clear. No pneumothorax. Cardiac silhouette is mildly enlarged but unchanged. Mediastinal contours are stable. Pulmonary vascularity is slightly prominent. Impression: Findings of mild congestive failure. Impression/Recommendation Problems: (1) Elevated troponin Status: Acute Assessment & Plan: 1) 0.144. trend serial troponin. EKG without ischemic changes. (2) Hypoxia Status: Acute Assessment & Plan: reported in the 70s at immediate care (3) CAD (coronary artery disease) Status: Chronic Assessment & Plan: reports last heart cath 10 years ago (4) Mild aortic stenosis Status: Chronic Assessment & Plan: Obtain echo (5) Carotid artery bruit Status: Chronic Assessment & Plan: obtain carotid doppler (6) Hypertension Status: Chronic Assessment & Plan: Poor control in ED. Takes Lisinopril and Triamterene/HCTZ at home (7) Obese Status: Chronic Recommendation Trend serial troponin levels. Obtain Echo due to Mild and Carotid doppler due to Left bruit heard. Needs better BP control as well. Thank you for allowing us to participate in the care of this patient. NEELAM CHACKO MD 01/22/17 1904: Past Medical History Current Medications Home Meds Reported Medications Calcium Carbonate (Calcium) 500 Mg Tablet, 1 TAB PO DAILY 01/18/17 Acetaminophen with Codeine (Acetaminophen-Cod #3 Tablet) 300-30 Tablet, 1 TAB PO TID Y for PAIN 01/18/17 Cefdinir (Cefdinir) 300 Mg Capsule, 300 MG PO BID 01/18/17 Meloxicam (Meloxicam) Unknown Strength Tablet, PO DAILY 04/08/16 Multivitamin (Multi-Day Vitamins) 1 Each Tablet, 1 TAB PO DAILY 04/08/16 Cyanocobalamin (Vitamin B-12) (Vitamin B-12) Unknown Strength Tablet, PO DAILY 04/08/16 Cinnamon Bark (Cinnamon) 500 Mg Capsule, 500 MG PO DAILY 04/08/16 Diphenhydramine HCl (Diphenhydramine HCl) 25 Mg Tablet, 25 MG PO HS 04/08/16 Acetaminophen (Acetaminophen) 650 Mg Tablet.er, 1300 MG PO QAM Y for PAIN 04/08/16 Potassium Chloride (Potassium Chloride) Unknown Strength Tab.er.prt, PO DAILY 04/08/16 Magnesium Oxide (Magnesium) 500 Mg Capsule, 500 MG PO BID 04/08/16 Albuterol Sulfate (Albuterol Sulfate) 1.25 Mg/3 Ml Vial.neb, 1.25 MG AEROSOL PRN 04/08/16 Fluticasone/Salmeterol (Advair 250-50 Diskus) 1 Disk W/Dev Inhaler, 1 PUFF INH PRN 04/08/16 Albuterol Sulfate (Proair HFA 90 mcg/actuation) 8.5 Gm Hfa.aer.ad, 1 PUFF INH PRN 04/08/16 Triamterene/Hydrochlorothiazid (Triamterene-Hctz 37.5-25 mg Tb) 1 Each Tablet, 1 TAB PO DAILY 04/08/16 Lisinopril (Lisinopril) 20 Mg Tablet, 20 MG PO DAILY Y for PRN ORDERS 04/08/16 Levothyroxine Sodium (Levothyroxine Sodium) 50 Mcg Tablet, 50 MCG PO ACB 04/08/16 Allergies: Coded Allergies: iodine (Verified Allergy, Unknown, WELTS, PASSES OUT WHEN INJECTED, ) Impression/Recommendation Recommendation After examining the patient I agree with the above assessment. I am involved in the formulation of the patient's plan of care. JANETT MCADAMS EHS TEACHER Jan 18, 2017 15:58 NEELAM CHACKO MD Jan 22, 2017 15:49
--- OUTSIDE RECORDS SUMMARY | 2017-01-18 16:45 | XMS REPORT | Continuity of Care Document ---
Demographics Preferred Language Unknown Marital Status Unknown Caodaism Affiliation Unknown Race Unknown Ethnic Group Unknown Author Author [facility] Organization [facility] Address Unknown Phone Unavailable Allergies Medications Problems Date Dx Coded Attending Type Code Diagnosis Diagnosed By 01/13/2017 TERESITA FUNES DF M43.16 Spondylolisthesis, lumbar region 01/13/2017 TERESITA FUNES DF M54.5 Low back pain Procedures Results Encounters ACCT No. Visit Date/Time Discharge Status Pt. Type Provider Facility Loc./Unit Complaint [id number] 12/15/2016 10:40:00 ACT Unknown [id number] 10/09/2016 09:48:00 ACT Unknown [id number] 08/17/2016 14:44:00 ACT Unknown [id number] 08/17/2016 14:16:00 ACT Unknown [id number] 08/17/2016 14:04:00 ACT Unknown [id number] 03/18/2016 08:45:00 ACT Unknown [id number] 02/12/2016 11:10:00 ACT Unknown [id number] 02/12/2016 11:10:00 ACT Unknown [id number] 01/15/2016 11:35:00 ACT Unknown [id number] 10/31/2015 17:57:00 ACT Unknown [id number] 11/14/2014 09:45:00 ACT Unknown [id number] 11/06/2014 08:06:00 ACT Unknown [id number] 07/20/2014 12:56:00 ACT Unknown [id number] 07/09/2014 11:23:00 ACT Unknown
--- OUTSIDE RECORDS SUMMARY | 2017-01-18 16:45 | XMS REPORT | Continuity of Care Document ---
Author Author [facility] Organization [facility] Address Unknown Phone Unavailable Support Name Relationship Address Phone CAROLINAELIASE DO Caregiver [address] [place] [address] [address] [place] [address] VICKY BEAULIEU DO Caregiver [facility] [address], [place] [id number] OSCAR PETERS MD Caregiver [address] [phone] AYLEEN STOVALL Next Of Kin [address] [place] [address] Insurance Providers Payer Name Policy Number Subscriber Name Relationship Blue Cross Other [id number] Dot Stovall 16 Self Medicare Part A Only [id number] Dot Stovall 16 Self Advance Directives Directive [...] F (96.8 - 99.1) Temperature (Calculated Celsius) 36.37154 degrees C (36.0 - 37.3) Temperature Source [...] Report February 13, 2010 1:44pm [facility] [id number] - Lymphocytes # (Auto) August 15, 2014 [...] 15, 2014 5:14am 7.9 % N 0-9.0 ZM-[id number]-[id number]-Type Natriuretic Peptide August 14, 2014 5:23pm 251 [...] INDICATEDHas specimen been collected/obtained? Y Urine Specific [place] August 14, 2014 8:00pm 1.010 L - [...] Staphylococcus Epidermidis Name: DOT STOVALL Unit #: [id number] : 1945 Sex: F Loc / Svc: ED DOS: Signed Report #: [id number] DIAGNOSTIC IMAGING REPORT TYPE OF EXAM: CHEST [...] procedures. Encounters Encounter Location Date/Time Discharged Inpatient [facility] 08/14/14 6:40pm Recent Diagnosis Chest pain Hypoxia Chest pain Hypoxia Obese Hypertension Hypothyroid CAD (coronary artery disease) Asthma Sleep apnea PUD (peptic ulcer disease) Osteoarthritis
--- OUTSIDE RECORDS SUMMARY | 2017-01-18 16:45 | XMS REPORT | Continuity of Care Document ---
Author Author [facility] Organization [facility] Address Unknown Phone Unavailable Support Name Relationship Address Phone CHANTALE PARK APRN Caregiver [address] [place] [address] Unavailable LEE SHORT MD Caregiver [address] [place] [address] [place] [address] Unavailable AYLEEN STOVALL Next Of Kin [address] [place] [address] Insurance Providers Guarantor Dot Stovall Address [address] [place] [address] Email DENIED 01-18-17 Payer [employer] Other Policy Number [id number] Subscriber's Name Dot Stovall Relationship 18 Self Group Number [id number] Advance Directives Directive Response Recorded Date/Time Advanced Directives Type None 01/18/17 1:10pm Ordered Resuscitation Status Full Code 01/18/17 3:07pm Chief Complaint and Reason for Visit Chief Complaint Dyspnea/Respdistress Reason for Visit [id number] Hypoxia Problems Active Problems Medical Problem Onset Date Status Asthma Unknown Chronic CAD (coronary artery disease) Unknown Chronic Chest pain 08/14/2014 Acute Chest pain Unknown Acute Exacerbation of asthma Unknown Acute Gastroenteritis Unknown Acute Hypertension Unknown Chronic Hypothyroid Unknown Chronic Hypoxia Unknown Acute Hypoxia Unknown Acute Obese Unknown Chronic Osteoarthritis Unknown Chronic Other calcification of muscle, right lower leg Unknown Acute PUD (peptic ulcer disease) Unknown Chronic Right hip pain Unknown Acute Sleep apnea Unknown Chronic Past Problems Medical Problem Onset Date Elevated troponin Unknown UTI (urinary tract infection) Unknown Medications Current Home Medications Medication Dose Units Route Directions Days Qty Instructions Start Date Acetaminophen 650 Mg Tablet.er 1,300 Mg Oral Every Morning as needed for Pain 04/08/16 Acetaminophen With Codeine (Acetaminophen-Cod #3 Tablet) 300-30 Tablet 1 Tab Oral Three Times A Day as needed for Pain 01/18/17 Albuterol Sulfate 1.25 Mg/3 Ml Vial.neb 1.25 Mg Aerosol Tx. As Needed 04/08/16 Albuterol Sulfate (Proair Hfa 90 Mcg/Actuation) 8.5 Gm Hfa.aer.ad 1 Puff Inhalation As Needed 04/08/16 Calcium Carbonate (Calcium) 500 Mg Tablet 1 Tab Oral Daily Cefdinir 300 Mg Capsule 300 Mg Oral Twice A Day 01/18/17 Cinnamon Bark (Cinnamon) 500 Mg Capsule 500 Mg Oral Daily Cyanocobalamin (Vitamin B-12) (Vitamin B-12) Unknown Strength Tablet Unknown Dose Oral Daily 04/08/16 Diphenhydramine Hcl 25 Mg Tablet 25 Mg Oral Bedtime 04/08/16 Fluticasone/Salmeterol (Advair 250-50 Diskus) 1 Disk W/Dev Inhaler 1 Puff Inhalation As Needed 04/08/16 Levothyroxine Sodium 50 Mcg Tablet 50 Mcg Oral Before Breakfast 04/08/16 Lisinopril 20 Mg Tablet 20 Mg Oral Daily as needed for Prn Orders 04/08/16 Magnesium Oxide (Magnesium) 500 Mg Capsule 500 Mg Oral Twice A Day 04/08/16 Meloxicam Unknown Strength Tablet Unknown Dose Oral Daily 04/08 Multivitamin (Multi-Day Vitamins) 1 Each Tablet 1 Tab Oral Daily 04/08/16 Potassium Chloride Unknown Strength Tab.er.prt Unknown Dose Oral Daily 04/08/16 Triamterene/Hydrochlorothiazid (Triamterene-Hctz 37.5-25 Mg Tb) 1 Each Tablet 1 Tab Oral Daily 04/08/16 Past Home Medications Medication Directions Ordered Status Levofloxacin 500 Mg Tablet, 500 Mg Oral Before Breakfast 07/09/15 Discontinued Ondansetron (Ondansetron Odt) 4 Mg Tab.rapdis, 4 Mg Oral Q6h/0300,0900,1500, 2100 as needed for Nausea &/Or Vomiting 07/09/15 Discontinued Social History Social History Problem Response Recorded Date/Time Onset Date Status Hx Substance Use No 01/18/2017 1:31pm Not Applicable Not Applicable Hx Alcohol Use No 01/18/2017 1:31pm Not Applicable Not Applicable Has the pt used tobacco in the last 12 months No 08/14/2014 7:55pm Not Applicable Not Applicable Tobacco Usage none 08/14/2014 5:12pm Not Applicable Not Applicable Query Response Start Date Stop Date Smoking Status Former smoker Hospital Discharge Instructions No hospital discharge instructions. Plan of Care Discharge Date 01/18/17 4:00pm Disposition 01 DISCHARGED HOME, SELF-CARE Condition at Discharge Stable Prescriptions See Medication Section Referrals CHANTALE PARK APRN Address: [address] [place] [address] Functional Status No functional status results. Allergies, Adverse Reactions, Alerts Allergen Type Severity Reaction Status Last Updated Iodine Allergy Unknown WELTS, PASSES OUT WHEN INJECTED Active 01/18/17 Immunizations Query Response on File Recorded Date/Time Hx Influenza Vaccination No 07/09/15 8:26am Hx Pneumococcal Vaccination N "2006 OR 2007" 07/09/15 8:26am Hx Influenza Vaccination No 07/09/15 8:26am Influenza Vaccine Hx NO 01/18/17 1:31pm Vital Signs Acute Vital Signs Vital Response Date/Time Temperature (Fahrenheit) 97.5 deg F (96.8 - 99.1) 01/18/2017 4:00pm Temperature (Calculated Celsius) 36.18253 degrees C (36.0 - 37.3) 01/18/2017 4:00pm Pulse Rate (adult) 72 bpm (60 - 100) 01/18/2017 4:00pm Respiratory Rate 18 breaths/min (10 - 20) 01/18/2017 4:00pm O2 Sat by Pulse Oximetry 96 % (90 - 100) 01/18/2017 4:00pm Oxygen Flow Rate 4.00 L/min 01/18/2017 4:00pm Blood Pressure 197/114 mm Hg 01/18/2017 4:00pm Height (Feet) 5 feet 01/18/2017 3:58pm Height (Inches) 6.00 inches 01/18/2017 3:58pm Weight (Kilograms) 121.500 kg 01/18/2017 1:02pm Body Mass Index (BMI) 43.0 01/18/2017 1:02pm Results Laboratory Results Test Name Result Units Flags Reference Collection Date/Time Result Date/ Time Comments White Blood Count 11.2 T/MM3 H 4.5-11.0 01/18/2017 2:09pm 01/18/2017 2: 18pm Red Blood Count 5.15 M/MM3 4.00-5.20 01/18/2017 2:09pm 01/18/2017 2: 18pm Hemoglobin 15.8 GM/DL 12-16 01/18/2017 2:01/18/2017 2:18pm Hematocrit 52.3 % H 36-46 01/18/2017 2:01/18/2017 2:18pm Mean Corpuscular Volume 101.6 UM3 H 80-100 01/18/2017 2:01/18/2017 2:18pm Mean Corpuscular Hemoglobin 30.7 UUG 26-34 01/18/2017 2:2016 2:18pm Mean Corpuscular Hemoglobin Concent 30.2 GM/DL L 31-37 01/18/2017 2:01/18/2017 2:18pm RDW Standard Deviation 57.7 FL H 36.9-50.2 01/18/2017 2:01/18/2017 2:18pm Platelet Count 243 T/MM3 130-400 01/18/2017 2:01/18/2017 2:18pm Mean Platelet Volume 10.4 UM3 9.4-12.4 01/18/2017 2:01/18/2017 2: 18pm Neutrophils (%) (Auto) 67.5 % H 33-66 01/18/2017 2:01/18/2017 2: 18pm Lymphocytes (%) (Auto) 21.5 % L 23-45 01/18/2017 2:01/18/2017 2: 18pm Monocytes (%) (Auto) 7.1 % 0-9.0 01/18/2017 2:01/18/2017 2:18pm Eosinophils (%) (Auto) 2.8 % 0-4 01/18/2017 2:01/18/2017 2:18pm Basophils (%) (Auto) 0.7 % 0-2 01/18/2017 2:01/18/2017 2:18pm Immature Granulocyte % (Auto) 0.4 % 0.0-0.5 01/18/2017 2:2016 2:18pm Absolute Neutrophils (auto) 7.6 T/MM3 1.8-7.7 01/18/2017 2:2016 2:18pm Absolute Lymphocytes (auto) 2.4 T/MM3 1-4.8 01/18/2017 2:2016 2:18pm Absolute Monocytes (auto) 0.8 T/MM3 0-0.8 01/18/2017 2:01/18/2017 2:18pm Absolute Eosinophils (auto) 0.3 T/MM3 0-0.5 01/18/2017 2:2016 2:18pm Absolute Basophils (auto) 0.1 T/MM3 0-0.2 01/18/2017 2:01/18/2017 2:18pm Absolute Immature Granulocyte (auto 0.04 T/MM3 H 0.00-0.03 01/18/2017 2: 01/18/2017 2:18pm Icterus Index < 2 0-7 01/18/2017 2:01/18/2017 2:26pm Chemistry Specimen Hemolysis < 15 0-25 01/18/2017 2:01/18/2017 2 :26pm 0-25: Specimen Exhibited No Hemolysis. Turbidity < 20 0-20 01/18/2017 2:01/18/2017 2:26pm Sodium Level 146 MEQ/L H 134-144 01/18/2017 2:01/18/2017 2:26pm Potassium Level 4.7 MEQ/L 3.6-5 01/18/2017 2:01/18/2017 2:26pm Chloride Level 100 MEQ/L 98-107 01/18/2017 2:01/18/2017 2:26pm Carbon Dioxide Level 36 MEQ/L H 22-30 01/18/2017 2:01/18/2017 2: 26pm Anion Gap 10 MEQ/L 5-15 01/18/2017 2:01/18/2017 2:26pm Blood Urea Nitrogen 18.0 MG/DL H 7-17 01/18/2017 2:01/18/2017 2: 26pm Creatinine 0.6 MG/DL L 0.7-1.2 01/18/2017 2:01/18/2017 2:26pm BUN/Creatinine Ratio 30 RATIO H 6-26 01/18/2017 2:01/18/2017 2: 26pm Glomerular Filtration Rate Calc 98 01/18/2017 2:01/18/2017 2: 26pm Glucose Level 97 MG/DL 65-110 01/18/2017 2:09pm 01/18/2017 2:26pm Calculated Osmolality 283 MOSM/KG H 261-280 01/18/2017 2:09pm 2016 2:26pm Calcium Level 9.6 MG/DL 8.4-10.2 01/18/2017 2:09pm 01/18/2017 2:26pm Troponin I 0.144 ng/ml H 0-0.12 01/18/2017 2:09pm 01/18/2017 2:38pm Troponin values greater than 0.120 ng/ml are considered a critical value. Troponin values with a difference of 55% increase from orginal troponin value represent a true biological DELTA value. (%increase Calc=Orginal Troponin value, divided by subsequent Troponin value, multiplied by 100) PJ-Urt-J-Type Natriuretic Peptide 1310 PG/ML H 0-175 01/18/2017 2:09pm 01/18/2017 2:39pm Rule in cut points: <50 years old=450; 50-75 years old=900; >75 years old=1800; When utilizing ProBNP rule-in cut points, adjustment for impaired renal function is typically not required. Arterial Blood pH 7.390 7.350-7.450 01/18/2017 3:45pm 01/18/2017 3: 58pm Arterial Blood Partial Pressure CO2 62 MMHG *H 34-45 01/18/2017 3:45pm 3:58pm Arterial Blood pO2 at Patient Temp 68 MMHG L 80-100 01/18/2017 3:45pm 3:58pm Arterial Blood HCO3 38 MEQ/L H 22-26 01/18/2017 3:45pm 01/18/2017 3: 58pm Arterial Blood Total CO2 39.4 MEQ/L H 23-27 01/18/2017 3:45pm 2016 3:58pm Arterial Blood Base Excess 10.3 MMOL/L H -2.0-2.0 01/18/2017 3:45pm 07/2017 3:58pm Arterial Blood Oxygen Saturation 93.0 % L 95.0-98.0 01/18/2017 3:45pm 3:58pm Blood Gas Oxygen Liter Flow 3.5 01/18/2017 3:45pm 01/18/2017 3: 58pm Oxygen Delivery Method (LAB) NASAL CANNULA,LITERS 01/18/2017 3:45pm 01/18/2017 3:58pm Name: DOT STOVALL Unit #: [id number] : 1945 Sex: F Admit Date: Loc / Svc: ED Discharge Date: DIAGNOSTIC IMAGING REPORT Report #: [id number] [facility] [place] INDICATION: ITS.REASON: hypoxia PROCEDURE: CHEST 2-VIEWS UPRIGHT (PA \\T\\ LAT) Encounter: Initial COMPARISON: July 09, 2015 FINDINGS: Small bilateral pleural effusions with lower lobe airspace opacities. Upper lung gonzalez are clear. No pneumothorax. Cardiac silhouette is mildly enlarged but unchanged. Mediastinal contours are stable. Pulmonary vascularity is slightly prominent. Impression: Findings of mild congestive failure. . Procedures No known history of procedures. Encounters Encounter Location Arrival/Admit Date Discharge/Depart Date Attending Provider Departed Emergency Room [facility] 01/18/17 12:56pm 01/18/17 4: 00pm LEE SHORT MD Registered Emergency Room [facility] 01/18/17 12:01pm ANUJ NAVARRETE APRN Recent Diagnosis
--- NOTE | 2017-01-18 16:46 | NUR ---
admitted from er bedside echo done
[2017-01-18] MEDS ORDERED: ACETAMINOPHEN SR 650 MG TABLET PO PRN (17:15)
[2017-01-18] MEDS ORDERED: FUROSEMIDE 40 MG/4 ML INJECTION IV ONE (17:15)
[2017-01-18] MEDS ORDERED: LISINOPRIL 20 MG TABLET PO PRN (17:15)
[2017-01-18] MEDS ORDERED: ALBUTEROL/IPRATROPIUM INHAL. 2.5mg-0.5mg/3ml Neb. AEROSOL PRN (17:15)
--- NOTE | 2017-01-18 17:16 | HPPDOC ---
NESTORTIFFANY D ORDER EXPEDITER 01/18/17 1642: HPI - Adult Date DATE: 01/18/17 TIME: 16:38 General Chief Complaint: Dizziness and SOB History of Present Illness Dot Gonzalez is a 71 y/o lady who presented to [facility] ED on 01/18/17 for further eval of dyspnea. She describes a 4 day hx of SOA, tired, dizziness with change in position, increase in leg swelling x6 months - PCP restarted triamterene in this time, + barking cough x4-5 days - nonproductive; +sinus congestion (hayfever), +frontal SINGH x4-5 days, numbness to both arms yesterday - resolved No chest pain/pressure, denies PND (though admits she's never has been able to lie flat to sleep since age 7-8), no dysphagia. She states that she has had swollen lymph nodes on the left side of her neck since September. She has been on antibiotics without improvement. She has standby oxygen but hasn't used it for the last 3 months. On arrival to the emergency department. Her room air saturation was 70%. She was placed on 4 L of oxygen, and her sat improved to 94%. She is hypertensive with a blood pressure being 206/98. She was afebrile. Labs were obtained, showing mild leukocytosis with a white count of 11.2. Sodium was slightly elevated at 146, CO2 was high at 36, renal function was preserved. Troponin was mildly elevated at 0.144. BNP was 1310. EKG was negative for acute ST segment elevation or depression, showing normal sinus rhythm. ABG showed CO2 retention and hypoxemia with PCO2 of 68, PO2 of 68, bicarbonate 38, pH was 7.39. Chest x- ray showed mild congestive failure. Dr. Ayers was notified, and the patient was admitted to inpatient status for acute respiratory hypoxic failure, acute CHF exacerbation. Length of stay is expected to exceed 2 overnights for IV diuresis, cardiac consultation, and cardiopulmonary stabilization. Past Medical History Past Medical History Patient's Medical History: (1) Hypertension (2) Hypothyroid (3) CAD (coronary artery disease) (4) Asthma (5) Osteoarthritis (6) Sleep apnea (7) PUD (peptic ulcer disease) (8) Obese Surgical History Patient's Surgical History: Tonsillectomy, appendectomy, cholecystectomy. Cardiac catheterization, negative. Tubal ligation, D&C 2. Right knee replacement, left knee arthroscopy. Ankle surgery. Current Medications Home Meds Reported Medications Calcium Carbonate (Calcium) 500 Mg Tablet, 1 TAB PO DAILY 01/18/17 Acetaminophen with Codeine (Acetaminophen-Cod #3 Tablet) 300-30 Tablet, 1 TAB PO TID Y for PAIN 01/18/17 Cefdinir (Cefdinir) 300 Mg Capsule, 300 MG PO BID 01/18/17 Meloxicam (Meloxicam) Unknown Strength Tablet, PO DAILY 04/08/16 Multivitamin (Multi-Day Vitamins) 1 Each Tablet, 1 TAB PO DAILY 04/08/16 Cyanocobalamin (Vitamin B-12) (Vitamin B-12) Unknown Strength Tablet, PO DAILY 04/08/16 Cinnamon Bark (Cinnamon) 500 Mg Capsule, 500 MG PO DAILY 04/08/16 Diphenhydramine HCl (Diphenhydramine HCl) 25 Mg Tablet, 25 MG PO HS 04/08/16 Acetaminophen (Acetaminophen) 650 Mg Tablet.er, 1300 MG PO QAM Y for PAIN 04/08/16 Potassium Chloride (Potassium Chloride) Unknown Strength Tab.er.prt, PO DAILY 04/08/16 Magnesium Oxide (Magnesium) 500 Mg Capsule, 500 MG PO BID 04/08/16 Albuterol Sulfate (Albuterol Sulfate) 1.25 Mg/3 Ml Vial.neb, 1.25 MG AEROSOL PRN 04/08/16 Fluticasone/Salmeterol (Advair 250-50 Diskus) 1 Disk W/Dev Inhaler, 1 PUFF INH PRN 04/08/16 Albuterol Sulfate (Proair HFA 90 mcg/actuation) 8.5 Gm Hfa.aer.ad, 1 PUFF INH PRN 04/08/16 Triamterene/Hydrochlorothiazid (Triamterene-Hctz 37.5-25 mg Tb) 1 Each Tablet, 1 TAB PO DAILY 04/08/16 Lisinopril (Lisinopril) 20 Mg Tablet, 20 MG PO DAILY Y for PRN ORDERS 04/08/16 Levothyroxine Sodium (Levothyroxine Sodium) 50 Mcg Tablet, 50 MCG PO ACB 04/08/16 Allergies: Coded Allergies: iodine (Verified Allergy, Unknown, WELTS, PASSES OUT WHEN INJECTED, 4/10/ 17) Family History Family History: Mother had breast cancer and polio, father had lymphoma. Uncles had diabetes and high blood pressure. Social History Smoking Status: Former smoker Quit Date: Oct 13, 1985 Substance Use Type: does not use Alcohol Intake: none Marital Status: Sexuality: male partner Household Members: spouse Current Occupational Status: employed Current Occupation: [employer] Advance Directives: Yes Full Code Social History Comments PCP - Raulito Review of Systems Constitutional: REPORTS: dizziness, fatigue, DENIES: chills, fever Eyes Vision: REPORTS: other (glasses) ENMT Sinuses: FOUND: congestion, see HPI Cardiovascular DENIES: chest pain Vascular: pedal edema Pulmonary Respiratory: cough, see HPI GI Upper Abdomen: DENIES: nausea, vomiting Lower Abdomen: diarrhea, DENIES: blood in stool General: DENIES: dysuria Musculoskeletal General: DENIES: joint pain Integumentary Skin: DENIES: rash Neurological General: headache, see HPI, DENIES: weakness Psychiatric Psychiatric: DENIES: anxiety Allergic/Immunological frequent infections (swollen glands left neck) All Other Systems All Other Systems: Reviewed (remainder of 10-point ROS Neg.) Physical Exam General General Nourishment: well nourished, well developed Vital Signs Vital Signs Date Time Temp Pulse Resp B/P Pulse Ox O2 Delivery O2 Flow Rate FiO2 01/18/17 16:00 97.5 72 18 197/114 96 Nasal Cannula 4.00 Height (Feet): 5 Height (Inches): 6.00 Eyes Brief: FOUND: PERRL, NOT FOUND: scleral icterus ENMT Brief: FOUND: mucosa moist, NOT FOUND: pharnyx erythema Neck Brief: FOUND: adenopathy, NOT FOUND: nuchal rigidity Respiratory Auscultation: FOUND: decreased, NOT FOUND: wheezes Cardiovascular Auscultation: FOUND: S1, S2, regular Murmur: FOUND: systolic Peripheral Pulses: 2+: Dorasalis Pedis (L), Dorsalis Pedis (R), Posterior Tibial (L), Posterior Tibial (R), Radial (L), Radial (R) Edema: 0: Anasarca, Arm (L), Arm (R), Face, 1+: Leg (L), Leg (R) Abdomen Inspection: NOT FOUND: distention Palpation: FOUND: soft, NOT FOUND: involuntary guarding, rebound, tender, voluntary guarding Auscultation: FOUND: normo active Lymphatic (brief) Lymphatic Brief: NOT FOUND: adenopathy Integumentary (brief) Integumentary Brief: FOUND: dry, pink, warm Integumentary General: FOUND: dry, warm Color: FOUND: pink Neurologic (brief) Neurological Brief: FOUND: cranial 2-12 intact (grossly intact), motor Neurologic GCS Eye Opening: (4)Spontaneous GCS Verbal: (5)Oriented GCS Motor: (6)Obeys Commands RN Documented GCS Total: 15 Psychiatric (brief) FOUND: alert, attentive, normal affect, oriented Laboratory Laboratory Tests Test 01/18/17 14:09 01/18/17 15:45 White Blood Count 11.2T/MM3 Red Blood Count 5.15M/MM3 Hemoglobin 15.8GM/DL Hematocrit 52.3% Mean Corpuscular Volume 101.6UM3 Mean Corpuscular Hemoglobin 30.7UUG Mean Corpuscular Hemoglobin Concent 30.2GM/DL RDW Standard Deviation 57.7FL Platelet Count 243T/MM3 Mean Platelet Volume 10.4UM3 Immature Granulocyte % (Auto) 0.4% Neutrophils (%) (Auto) 67.5% Lymphocytes (%) (Auto) 21.5% Monocytes (%) (Auto) 7.1% Eosinophils (%) (Auto) 2.8% Basophils (%) (Auto) 0.7% Absolute Immature Granulocyte (auto 0.04T/MM3 Absolute Neutrophils (auto) 7.6T/MM3 Absolute Lymphocytes (auto) 2.4T/MM3 Absolute Monocytes (auto) 0.8T/MM3 Absolute Eosinophils (auto) 0.3T/MM3 Absolute Basophils (auto) 0.1T/MM3 Turbidity < 20 Sodium Level 146MEQ/L Potassium Level 4.7MEQ/L Chloride Level 100MEQ/L Carbon Dioxide Level 36MEQ/L Anion Gap 10MEQ/L Blood Urea Nitrogen 18.0MG/DL Creatinine 0.6MG/DL Glomerular Filtration Rate Calc 98 BUN/Creatinine Ratio 30RATIO Glucose Level 97MG/DL Calculated Osmolality 283MOSM/KG Calcium Level 9.6MG/DL Icterus Index < 2 Troponin I 0.144ng/ml QK-Yhs-P-Type Natriuretic Peptide 1310PG/ML Chemistry Specimen Hemolysis < 15 Arterial Blood pH 7.390 Arterial Blood Partial Pressure CO2 62MMHG Arterial Blood pO2 at Patient Temp 68MMHG Arterial Blood HCO3 38MEQ/L Arterial Blood Total CO2 39.4MEQ/L Arterial Blood Oxygen Saturation 93.0% Arterial Blood Base Excess 10.3MMOL/L Oxygen Delivery Method (LAB) Nasal cannula,liters Blood Gas Oxygen Liter Flow 3.5 Blood Gas Oxygen Percent Given Blood Gas Vent Rate Blood Gas Tidal Volume ML Assessment & Plan Problems: (1) Acute respiratory failure with hypoxia Status: Acute (2) Acute exacerbation of CHF (congestive heart failure) Status: Acute Qualifiers: Congestive heart failure type: unspecified congestive heart failure type Qualified Codes: I50.9 - Heart failure, unspecified (3) Elevated troponin Status: Acute (4) CAD (coronary artery disease) Status: Chronic (5) Hypertension Status: Chronic (6) Hypothyroid Status: Chronic (7) Sleep apnea Status: Chronic (8) Asthma Status: Chronic (9) Obese Status: Chronic Qualifiers: Obesity type: due to excess calories Obesity severity: morbid Qualified Codes: E66.01 - Morbid (severe) obesity due to excess calories Assessment & Plan: BMI 43.2 on day of admission Plan/Intensity of Service Admit, inpatient status. Attending: Dr. Ayers 1. Acute hypoxic respiratory failure, acute CHF exacerbation, elevated troponin * Trend troponin. Monitor rhythm on telemetry. Dr. Velasquez has been consulted. * Echocardiogram and carotid Doppler are pending. * Lasix 40 mg IV 1. Will discuss ongoing diuresis with Dr. Ayers. * DuoNeb every 6 hours. * Continue supplemental oxygen to maintain saturations. * Check lipid panel. Start daily aspirin - history of peptic ulcer disease, monitor closely. 2. Hypertension * Continue lisinopril * Hold Maxzide for now since we will give IV diuresis. 3. Hypothyroidism: Continue levothyroxine and check TSH 4. Asthma * Asthma exacerbation less likely * Continue Advair and DuoNeb's. DVT Prophylaxis: Lovenox Code Status Full Code Hospital Course Summary Disclaimer The hospital course summary below is not to be considered part of the above Progress Note. Hospital Course Summary 01/18/17: Admit, inpatient status. Attending: Dr. Ayers 1. Acute hypoxic respiratory failure, acute CHF exacerbation, elevated troponin * Trend troponin. Monitor rhythm on telemetry. Dr. Velasquez has been consulted. * Echocardiogram and carotid Doppler are pending. * Lasix 40 mg IV 1. Will discuss ongoing diuresis with Dr. Ayers. * DuoNeb every 6 hours. * Continue supplemental oxygen to maintain saturations. * Check lipid panel. Start daily aspirin - history of peptic ulcer disease, monitor closely. 2. Hypertension * Continue lisinopril * Hold Maxzide for now since we will give IV diuresis. 3. Hypothyroidism: Continue levothyroxine and check TSH 4. Asthma * Asthma exacerbation less likely * Continue Advair and DuoNeb's. LIZBETH AYESR MD 01/18/171903: Past Medical History Current Medications Home Meds Reported Medications Calcium Carbonate (Calcium) 500 Mg Tablet, 1 TAB PO DAILY 01/18/17 Acetaminophen with Codeine (Acetaminophen-Cod #3 Tablet) 300-30 Tablet, 1 TAB PO TID Y for PAIN 01/18/17 Cefdinir (Cefdinir) 300 Mg Capsule, 300 MG PO BID 01/18/17 Meloxicam (Meloxicam) Unknown Strength Tablet, PO DAILY 04/08/16 Multivitamin (Multi-Day Vitamins) 1 Each Tablet, 1 TAB PO DAILY 04/08/16 Cyanocobalamin (Vitamin B-12) (Vitamin B-12) Unknown Strength Tablet, PO DAILY 04/08/16 Cinnamon Bark (Cinnamon) 500 Mg Capsule, 500 MG PO DAILY 04/08/16 Diphenhydramine HCl (Diphenhydramine HCl) 25 Mg Tablet, 25 MG PO HS 04/08/16 Acetaminophen (Acetaminophen) 650 Mg Tablet.er, 1300 MG PO QAM Y for PAIN 04/08/16 Potassium Chloride (Potassium Chloride) Unknown Strength Tab.er.prt, PO DAILY 04/08/16 Magnesium Oxide (Magnesium) 500 Mg Capsule, 500 MG PO BID 04/08/16 Albuterol Sulfate (Albuterol Sulfate) 1.25 Mg/3 Ml Vial.neb, 1.25 MG AEROSOL PRN 04/08/16 Fluticasone/Salmeterol (Advair 250-50 Diskus) 1 Disk W/Dev Inhaler, 1 PUFF INH PRN 04/08/16 Albuterol Sulfate (Proair HFA 90 mcg/actuation) 8.5 Gm Hfa.aer.ad, 1 PUFF INH PRN 04/08/16 Triamterene/Hydrochlorothiazid (Triamterene-Hctz 37.5-25 mg Tb) 1 Each Tablet, 1 TAB PO DAILY 04/08/16 Lisinopril (Lisinopril) 20 Mg Tablet, 20 MG PO DAILY Y for PRN ORDERS 04/08/16 Levothyroxine Sodium (Levothyroxine Sodium) 50 Mcg Tablet, 50 MCG PO ACB 04/08/16 Allergies: Coded Allergies: iodine (Verified Allergy, Unknown, WELTS, PASSES OUT WHEN INJECTED, ) Assessment & Plan Problems: (1) Acute respiratory failure with hypoxia Status: Acute (2) Acute exacerbation of CHF (congestive heart failure) Status: Acute Qualifiers: Congestive heart failure type: unspecified congestive heart failure type Qualified Codes: I50.9 - Heart failure, unspecified (3) Pulmonary edema Status: Acute Qualifiers: Chronicity: acute Qualified Codes: J81.0 - Acute pulmonary edema (4) Elevated troponin Status: Acute (5) CAD (coronary artery disease) Status: Chronic (6) Hypertension Status: Chronic (7) Hypothyroid Status: Chronic (8) Sleep apnea Status: Chronic (9) Asthma Status: Chronic (10) Osteoarthritis Status: Chronic Qualifiers: Osteoarthritis location: multiple joints Osteoarthritis type: primary Qualified Codes: M15.0 - Primary generalized (osteo)arthritis (11) Obese Status: Chronic Qualifiers: Obesity type: due to excess calories Obesity severity: morbid Qualified Codes: E66.01 - Morbid (severe) obesity due to excess calories Assessment & Plan: BMI 43.2 on day of admission Plan/Intensity of Service Have independently interviewed and examined pt. Chart reviewed. Case discussed with ED provider and my ORDER EXPEDITER. Care plan developed with my supervision; agree with above. Feeling progressively more weak and tired over the last 7 days. More winded and congested. Notes cough, but not producing sputum. No chest pressure, pain, or heaviness. Chest wall not sore from cough. Appetite with decrease. No nausea. Slight urinary frequency and discomfort. Woke today and very dizzy and unsteady when up. Lungs: decreased, faint crackles. No distress on RA. CV: regular AB: soft nt/nd +BS Ext: +1 edema bilaterally. SCD in place MSE: awake alert appropriate Plan: Inpatient admission. Tele. Serial troponins. Consult Dr Escobar for cardiac evaluation due to elevated Troponin and pulm edema. Lasix 40mgx1 to help diuresis - start 40mg IV BID tomorrow. Check ECHO. Respiratory swab. Mucinex DM to help cough. Supplemental O2. Monitor lab. DVT Prophylaxis: SCD'S TIFFANY BAEZ APRN Jan 18, 2017 16:42 LIZBETH AYERS MD Jan 18, 2017 19:04
[2017-01-18 17:28] VITALS: BP 167/93; PULSE 83; RESP 22; TEMP 98.1; O2SAT 91
[2017-01-18 17:31] VITALS: Ht 167.6 cm; Wt 116.1 kg
[2017-01-18] MEDS ORDERED: MAG-AL + SIM LIQUID 30 ML UDC PO PRN (18:30)
[2017-01-18] MEDS ORDERED: BISACODYL 10 MG SUPPOSITORY RECTALLY PRN (18:30)
[2017-01-18] MEDS ORDERED: MILK OF MAGNESIA 30 ML SUSP PO PRN (18:30)
[2017-01-18] MEDS ORDERED: PRN ORDERS MC (18:30)
[2017-01-18] MEDS ORDERED: NITROGLYCERIN 0.4 MG SUBLINGUAL TABLET SL PRN (18:30)
--- NOTE | 2017-01-18 19:27 | NUR ---
SHIFT SUMMARY tele is sr rate 89 has o2 @ 4 liters sats are 91% LASIX 40 MG GIVEN SIVP UP TO BR WITH STANDBY ASSIT
[2017-01-18] MEDS: ALBUTEROL/IPRATROPIUM INHAL. 2.5mg-0.5mg/3ml Neb. AEROSOL SCH (19:39)
[2017-01-18 20:10] LABS: ALBUMIN 4.3 G/DL (3.5-5.0); ALBUMIN/GLOBULIN RATIO 1.2 RATIO (1.1-2.2); ALKALINE PHOSPHATASE 124 U/L (38-126); ALT (SGPT) 59 U/L (9-52); AST (SGOT) 55 U/L (14-36)
[2017-01-18 20:31] VITALS: PULSE 80; RESP 19
[2017-01-18] MEDS: DiphenhydrAMINE 25 MG CAPSULE PO SCH (22:32)
[2017-01-18] MEDS: GUAIFENESIN DM 600mg/30mg TABLET PO SCH (22:32)
[2017-01-18] MEDS ORDERED: ACETAMINOPHEN/CODEINE 300mg/30mg TABLET PO PRN (23:00)
[2017-01-19] VITALS (10 sets, daily range): BP systolic 111–145; BP diastolic 57–96; PULSE 67–80; RESP 16–20; TEMP 97.7–98.6; O2SAT 90–96
[2017-01-19 02:08] LABS: BASOPHILS % (AUTO) 0.4 % (0-2); EOSINOPHILS # (AUTO) 0.4 T/MM3 (0-0.5); EOSINOPHILS % (AUTO) 3.6 % (0-4); HCT - HEMATOCRIT 48.6 % (36-46); HGB - HEMOGLOBIN 14.8 GM/DL (12-16); IMMATURE GRANULOCYTE # (AUTO) 0.02 T/MM3 (0.00-0.03); IMMATURE GRANULOCYTE % (AUTO) 0.2 % (0.0-0.5); LYMPHOCYTES % (AUTO) 19.4 % (23-45); MEAN CORPUSCULAR HGB 30.3 UUG (26-34); MEAN CORPUSCULAR HGB CONC(MCHC 30.5 GM/DL (31-37); MEAN CORPUSCULAR VOLUME 99.6 UM3 (80-100); MEAN PLATELET VOLUME 10.5 UM3 (9.4-12.4); MONOCYTES # (AUTO) 0.7 T/MM3 (0-0.8); MONOCYTES % (AUTO) 6.8 % (0-9.0); NEUTROPHILS #(AUTO)-ABSOLUTE 7.2 T/MM3 (1.8-7.7); NEUTROPHILS % (AUTO) 69.6 % (33-66); RED BLOOD COUNT 4.88 M/MM3 (4.00-5.20); WBC - WHITE BLOOD COUNT 10.3 T/MM3 (4.5-11.0)
--- NOTE | 2017-01-19 03:44 | NUR ---
SUMMARY PT ALERT AND ORIENTED. VSS. IV LOCK IN THE RT FOREARM, PATENT, FLUSHES WITH NO PROBLEMS. STAND BY ASSIST TO BATHROOM. ADEQUATE OUTPUT FOR THE NIGHT. PATIENT REPORTED PAIN RATED 7/10 IN HER HEAD AND LOWER BACK, SHE REQUESTED TYLENOL #3 WHICH SHE STATED THAT SHE TAKES AT HOME, PHYSICIAN NOTIFIED AND GAVE ORDER FOR TYLENOL #3 Q6H PRN FOR PAIN.
[2017-01-19 03:56] LABS: ANION GAP 10 MEQ/L (5-15); BUN/CREATININE RATIO 28 RATIO (6-26); CHLORIDE 98 MEQ/L (98-107); CO2 - CARBON DIOXIDE 36 MEQ/L (22-30); CREATININE 0.6 MG/DL (0.7-1.2); GLOMERULAR FILTRATION RATE 98; GLUCOSE 104 MG/DL (65-110); POTASSIUM 3.7 MEQ/L (3.6-5); SODIUM 144 MEQ/L (134-144)
[2017-01-19 04:07] LABS: RISK FACTOR 6.1 RATIO (0-4.0)
[2017-01-19] MEDS: ALBUTEROL/IPRATROPIUM INHAL. 2.5mg-0.5mg/3ml Neb. AEROSOL SCH ×4 (06:36→20:27)
[2017-01-19] MEDS: LEVOTHYROXINE 50 MCG TABLET PO SCH (06:40)
--- NOTE | 2017-01-19 08:12 | DI ---
Indication: ITS.REASON: left bruit PROCEDURE: US CAROTID DOPP COMPLETE: TECHNIQUE: Grayscale, color and duplex Doppler imaging was performed of the carotid systems bilaterally. Velocities in cm/sec - validated velocity measurements with angiographic measurements, velocity criteria are extrapolated from diameter data as defined by the Society of Radiologists in Ultrasound Consensus Conference Radiology 2003; 229;340-346. RIGHT: PSV ICA 118 EDV ICA 46.3 PSV CCA 91.1 EDV CCA 22.8 SVR 1.3 PSV ECA 129 ICA Diameter reduction 20%-40% (1.2-1.4 [id number])% LEFT: PSV ICA 152 EDV ICA 45.8 PSV CCA 112 EDV CCA 27.9 SVR 1.4 PSV ECA 142 ICA Diameter reduction 50-60% The right vertebral artery is patent with cephalic flow. The left vertebral artery is patent with cephalic flow. Atherosclerotic plaque in the left carotid bulb and proximal ICA with common carotid intimal thickening. Mildly elevated velocities throughout the left ICA. Scattered atherosclerotic plaque in the right carotid bulb and proximal ICA. IMPRESSION: 1. 50-60% stenosis of the left ICA. 2. No hemodynamically significant carotid stenosis on the right. .
[2017-01-19] MEDS: FLUTICASONE/SALMETEROL 250/50 DISK INHALER ORAL INH SCH (08:41)
[2017-01-19] MEDS ORDERED: ASPIRIN 81 MG CHEWABLE TABLET PO SCH (09:00)
[2017-01-19] MEDS ORDERED: ENOXAPARIN 40 MG/0.4 ML INJECTION SQ SCH (09:00)
[2017-01-19] MEDS: FUROSEMIDE 40 MG/4 ML INJECTION IV SCH ×2 (09:13→17:29)
[2017-01-19] MEDS: GUAIFENESIN DM 600mg/30mg TABLET PO SCH ×2 (09:13→20:21)
[2017-01-19] MEDS: LISINOPRIL 20 MG TABLET PO SCH (09:13)
--- NOTE | 2017-01-19 10:35 | NUR ---
RENÉE CM VISITED PT. CM EXPLAINED ROLE AND PROVIDED CONTACT INFORMATION. PT DENIES NEEDS. PT PLANS TO RETURN HOME AT TIME OF D/C FROM [facility]. PT STATES THAT SHE STILL WORKS. PT IS AWARE TO CONTACT CM IF NEEDS ARISE.
[2017-01-19] MEDS ORDERED: NORMAL SALINE 100 ML ONE (11:20)
[2017-01-19] MEDS ORDERED: SALINE FLUSH 10ml SYRINGE ONE (11:20)
[2017-01-19] MEDS ORDERED: IOHEXOL 350 MG/ML 75ml INJECTION ONE (11:20)
[2017-01-19] MEDS ORDERED: DiphenhydrAMINE 50 MG/ML INJECTION IV ONE (11:30)
--- NOTE | 2017-01-19 11:36 | PNPDOC ---
JANETT MCADAMS [employer] 01/19/17 1042: Subjective Date DATE: 01/19/17 TIME: 10:39 Subjective Dot is sitting on the side of the bed in her room on Medical. She states her breathing is only a little bit improved. She states her back is very painful and thinks her other health problems are as a result of sleepless nights. She denies any chest pain or pressure, no dizziness or lightheadedness now Objective Vital Signs Vital signs Vital Signs 01/19/17 01/19/17 01/19/17 01/19/17 00:20 06:39 06:39 06:45 Temp 98.6 Pulse 80 82 76 Resp 18 16 B/P 144/96 Pulse Ox 96 92 O2 Delivery Nasal Cannula O2 Flow Rate 4.00 01/19/17 01/19/17 01/19/17 01/19/17 07:47 08:00 08:41 08:44 Temp 98.5 Pulse 79 77 80 76 Resp 18 B/P 142/77 Pulse Ox 93 O2 Delivery Nasal Cannula O2 Flow Rate 4.00 01/19/17 01/19/17 01/19/17 10:29 10:29 10:37 Pulse 80 86 Resp 16 Pulse Ox 91 Height (Feet): 5 Height (Inches): 6.00 Weight (Kilograms): 119.300 General Alert, Orientated x 3, Cooperative ENMT (Brief) mucosa moist Neck (Brief) carotid bruits (left), NOT FOUND: JVD Respiratory (Brief) equal bilaterally, rales (bibasilar), NOT FOUND: clear all gonzalez Cardiovascular (Brief) pedal edema, regular rate, regular rhythm, NOT FOUND: click, gallop, murmur, rub Abdomen (Brief) BS normo active x4, soft Integumentary (Brief) dry, pink, warm Psychiatric (Brief) alert, attentive, oriented Laboratory Laboratory Laboratory Tests Test 01/18/17 14:09 01/18/17 15:45 01/18/17 19:35 01/19/17 01:56 White Blood Count 11.2T/MM3 10.3T/MM3 Red Blood Count 5.15M/MM3 4.88M/MM3 Hemoglobin 15.8GM/DL 14.8GM/DL Hematocrit 52.3% 48.6% Mean Corpuscular Volume 101.6UM3 99.6UM3 Mean Corpuscular Hemoglobin 30.7UUG 30.3UUG Mean Corpuscular Hemoglobin Concent 30.2GM/DL 30.5GM/DL RDW Standard Deviation 57.7FL 55.2FL Platelet Count 243T/MM3 236T/MM3 Mean Platelet Volume 10.4UM3 10.5UM3 Immature Granulocyte % (Auto) 0.4% 0.2% Neutrophils (%) (Auto) 67.5% 69.6% Lymphocytes (%) (Auto) 21.5% 19.4% Monocytes (%) (Auto) 7.1% 6.8% Eosinophils (%) (Auto) 2.8% 3.6% Basophils (%) (Auto) 0.7% 0.4% Absolute Immature Granulocyte (auto 0.04T/MM3 0.02T/MM3 Absolute Neutrophils (auto) 7.6T/MM3 7.2T/MM3 Absolute Lymphocytes (auto) 2.4T/MM3 2.0T/MM3 Absolute Monocytes (auto) 0.8T/MM3 0.7T/MM3 Absolute Eosinophils (auto) 0.3T/MM3 0.4T/MM3 Absolute Basophils (auto) 0.1T/MM3 0.0T/MM3 Turbidity < 20 < 20 < 20 Sodium Level 146MEQ/L 144MEQ/L Potassium Level 4.7MEQ/L 3.7MEQ/L Chloride Level 100MEQ/L 98MEQ/L Carbon Dioxide Level 36MEQ/L 36MEQ/L Anion Gap 10MEQ/L 10MEQ/L Blood Urea Nitrogen 18.0MG/DL 17.0MG/DL Creatinine 0.6MG/DL 0.6MG/DL Glomerular Filtration Rate Calc 98 98 BUN/Creatinine Ratio 30RATIO 28RATIO Glucose Level 97MG/DL 104MG/DL Calculated Osmolality 283MOSM/KG 279MOSM/KG Calcium Level 9.6MG/DL 9.0MG/DL Icterus Index < 2 < 2 < 2 Troponin I 0.144ng/ml 0.326ng/ml 0.346ng/ml VL-Dcf-E-Type Natriuretic Peptide 1310PG/ML Thyroid Stimulating Hormone (TSH) 1.38MIU/L Chemistry Specimen Hemolysis < 15 < 15 < 15 Arterial Blood pH 7.390 Arterial Blood Partial Pressure CO2 62MMHG Arterial Blood pO2 at Patient Temp 68MMHG Arterial Blood HCO3 38MEQ/L Arterial Blood Total CO2 39.4MEQ/L Arterial Blood Oxygen Saturation 93.0% Arterial Blood Base Excess 10.3MMOL/L Oxygen Delivery Method (LAB) Nasal cannula,liters Blood Gas Oxygen Liter Flow 3.5 Blood Gas Oxygen Percent Given Blood Gas Vent Rate Blood Gas Tidal Volume ML Total Bilirubin 1.70MG/DL Conjugated Bilirubin 0.00MG/DL Unconjugated Bilirubin 1.10MG/DL Aspartate Amino Transf (AST/SGOT) 55U/L Alanine Aminotransferase (ALT/SGPT) 59U/L Alkaline Phosphatase 124U/L Total Protein 8.0G/DL Albumin 4.3G/DL Globulin 3.7G/DL Albumin/Globulin Ratio 1.2RATIO Triglycerides Level 130MG/DL Cholesterol Level 207MG/DL LDL Cholesterol, Calculated 147.0 VLDL Cholesterol 26.0MG/DL HDL Cholesterol Direct 34MG/DL Cholesterol/HDL Ratio 6.1RATIO Laboratory Tests 01/18/17 14:09 01/19/17 01:56 Laboratory Tests 01/18/17 14:09 01/19/17 01:56 Medications Current Medications Aspirin (Ecotrin) 81 mg O ONCE PO Last administered on 01/18/17 18:45; Start 01/18/17 at 15:45; Stop 01/18/17 at 15:46; Status DC Enoxaparin Sodium (Lovenox) 40 mg DAILY SQ Last administered on 01/19/17 09:13 ; Start 01/19/17 at 09:00 Albuterol/ Ipratropium (Duoneb) 3 ml Q2H PRN AEROSOL ; Start 01/18/17 at 17:15 Acetaminophen (Tylenol Arthritis) 1,300 mg DAILY PRN PO PAIN; Start 01/18/17 at 17:15; Stop 01/18/17 at 18:37; Status DC Diphenhydramine HCl (Benadryl) 25 mg HS PO Last administered on 01/18/17 22:32 ; Start 01/18/17 at 22:00 Salmeterol Xinafoate/ Fluticasone (Advair 250-50 Diskus) 1 puff DAILY ORAL INH Last administered on 01/19/17 08:41; Start 01/19/17 at 09:00 Levothyroxine Sodium (Synthroid) 50 mcg ACB PO Last administered on 01/19/17 06:40; Start 01/19/17 at 06:30 Aspirin (ASA) 81 mg DAILY PO Last administered on 01/19/17 09:13; Start at 09:00 Lisinopril (Prinivil) 20 mg DAILY PO Last administered on 01/19/17 09:13; Start 01/19/17 at 09:00 Miscellaneous Medication (May use PRN orders) PRN PRN MC ; Start 01/18/17 at 18:30 Magnesium Hydroxide (Mom) 30 ml DAILY PRN PO CONSTIPATION; Start 01/18/17 at 18 :30 Bisacodyl (Dulcolax) 10 mg DAILY PRN RECTALLY CONSTIPATION; Start 01/18/17 at 18:30 Al Hydroxide/Mg Hydroxide (Maalox) 30 ml Q3H PRN PO INDIGESTION; Start at 18:30 Acetaminophen (Tylenol Regular Strength) 1-2 TABS PO Q5H PRN PO DISCOMFORT; Start 01/18/17 at 18:30 Nitroglycerin (Nitrostat) 0.4 mg Q5M PRN SL CHEST PAIN; Start 01/18/17 at 18:30 Guaifenesin/ Dextromethorphan (Mucinex Dm 600/ 30 Mg Tablet) 1 tab Q12HR PO Last administered on 01/19/17 09:13; Start 01/18/17 at 21:00 Furosemide (Lasix) 40 mg BID. IV Last administered on 01/19/17 09:13; Start at 09:00 Acetaminophen/ Codeine Phosphate (Tylenol #3) 1 tab Q6H PRN PO PAIN Last administered on 01/18/17 22:52; Start 01/18/17 at 23:00 Radiology DATE OF PROCEDURE January 18, 2017 REFERRING PHYSICIAN Brian Ayers MD This is a two-dimensional echo with spectral Doppler, color-flow and M-mode. It was obtained in a patient with hypoxia. Left atrium is dilated. Left ventricle end-diastolic dimension is at the upper limits of normal. Left ventricular wall thickness is normal. LV systolic function is normal with ejection fraction of 60%. Right atrium is normal. Right ventricle is normal. Aortic root dimension is normal. Mitral annulus is calcified. Mitral valve leaflets are sclerotic with mild mitral regurgitation and no stenosis. Aortic valve shows fibrocalcific changes. Transaortic velocities are increased with peak velocity of 2.2 meters/second with a peak gradient of 20 and mean gradient of 11. Aortic valve area is calculated at 1.73 cm2. Tricuspid valve shows mild tricuspid regurgitation with normal estimated pulmonary artery systolic pressure of 28. Pulmonary valve was not visualized. There is no pericardial effusion. IMPRESSION 1. Technically difficult study. 2. Normal LV systolic function with ejection fraction of 60%. 3. Mitral annulus calcification with mitral sclerosis and mild mitral regurgitation. 4. Aortic sclerosis versus mild aortic stenosis with a valve area of 1.73 cm2 with no aortic insufficiency. 5. Left atrial dilation. 6. Mild tricuspid regurgitation with normal estimated pulmonary artery systolic pressure of 28. 7. Normal LV systolic function with ejection fraction of 60%. DATE OF EXAM: 01/19/17 ORDERING DOCTOR: JANETT MCADAMS APRN TYPE OF EXAM: CTA PULMONARY EMBOLI REASON FOR EXAM: hypoxia Indication: ITS.REASON: hypoxia PROCEDURE: CTA PULMONARY EMBOLI: Encounter: Initial Comparison: Chest x-ray from yesterday Technique: Axial CT pulmonary angiographic phase images were performed through the chest after the administration of intravenous contrast. Coronal and Sagittal MIP reconstructed images were created and reviewed. Automated Exposure Control and Iterative Reconstruction dose reducing techniques were utilized. Contrast: Omnipaque 350 72 mL Findings: Pulmonary arteries: Exam is diagnostic to the segmental pulmonary arterial level. Patient body habitus, motion artifact and contrast bolus timing includes adequate evaluation of the subsegmental pulmonary arterial levels. Despite these limitations there does appear to be scattered segmental and subsegmental filling defects in the right upper and lower lobe pulmonary arteries suspicious for pulmonary emboli. Other findings: Mild dependent. No pneumothorax or significant pleural effusion. Lungs are hypoinflated. No focal consolidative pneumonia. The upper abdomen shows no acute findings. Heart is mildly enlarged. No pericardial effusion. No gross axillary or mediastinal adenopathy. Bone windows show no acute findings. Impression: Probable right-sided pulmonary emboli. DATE OF EXAM: 01/18/17 ORDERING DOCTOR: NEELAM CHACKO MD TYPE OF EXAM: US CAROTID DOPP COMPLETE REASON FOR EXAM: left bruit Indication: ITS.REASON: left bruit PROCEDURE: US CAROTID DOPP COMPLETE: TECHNIQUE: Grayscale, color and duplex Doppler imaging was performed of the carotid systems bilaterally. Velocities in cm/sec - validated velocity measurements with angiographic measurements, velocity criteria are extrapolated from diameter data as defined by the Society of Radiologists in Ultrasound Consensus Conference Radiology 2003; 229;340-346. RIGHT: PSV ICA 118 EDV ICA 46.3 PSV CCA 91.1 EDV CCA 22.8 SVR 1.3 PSV ECA 129 ICA Diameter reduction 20%-40% (1.2-1.4 [id number])% LEFT: PSV ICA 152 EDV ICA 45.8 PSV CCA 112 EDV CCA 27.9 SVR 1.4 PSV ECA 142 ICA Diameter reduction 50-60% The right vertebral artery is patent with cephalic flow. The left vertebral artery is patent with cephalic flow. Atherosclerotic plaque in the left carotid bulb and proximal ICA with common carotid intimal thickening. Mildly elevated velocities throughout the left ICA. Scattered atherosclerotic plaque in the right carotid bulb and proximal ICA. IMPRESSION: 1. 50-60% stenosis of the left ICA. 2. No hemodynamically significant carotid stenosis on the right. Assessment & Plan Problems: (1) Pulmonary embolism Status: Acute Qualifiers: Pulmonary embolism type: other Chronicity: acute Acute cor pulmonale presence: without acute cor pulmonale Qualified Codes: I26.99 - Other pulmonary embolism without acute cor pulmonale Assessment & Plan: Xarelto 15mg BID X 21days, then 20mg daily (2) Elevated troponin Status: Acute Assessment & Plan: 1) 0.144. trend serial troponin. EKG without ischemic changes. (3) Hypoxia Status: Acute Assessment & Plan: reported in the 70s at immediate care (4) CAD (coronary artery disease) Status: Chronic Assessment & Plan: reports last heart cath 10 years ago (5) Mild aortic stenosis Status: Chronic Assessment & Plan: Obtain echo (6) Carotid artery bruit Status: Chronic Assessment & Plan: obtain carotid doppler (7) Hypertension Status: Chronic Assessment & Plan: Poor control in ED. Takes Lisinopril and Triamterene/HCTZ at home (8) Obese Status: Chronic Qualifiers: Obesity type: due to excess calories Obesity severity: morbid Qualified Codes: E66.01 - Morbid (severe) obesity due to excess calories Plan/Intensity of Service 01/19/16 Trend serial troponin levels. Obtain Echo due to Mild and Carotid doppler due to Left bruit heard. Needs better BP control as well. 01/19/17 Troponin trending down. Carotids without significant stenosis. PE on CTA: Xarelto 15mg BID X 21days, then 20mg daily for 3 months for PE, DC aspirin. NEELAM CHACKO MD 01/22/17 1556: Assessment & Plan Plan/Intensity of Service After examining the patient I agree with the above assessment. I am involved in the formulation of the patient's plan of care. JANETT MCADAMS APRN Jan 19, 2017 10:42 NEELAM CHACKO MD Jan 22, 2017 15:56
--- NOTE | 2017-01-19 12:01 | NUR ---
procedure PRE MED FOR ct sacan for pe pt has had previous reactions to iodine 10 yrs ago.
--- NOTE | 2017-01-19 12:14 | NUR ---
to ct scan per wc.
--- NOTE | 2017-01-19 12:46 | NUR ---
returned from ct scan vs monitore q 15min due to having a hx of reaction.
--- NOTE | 2017-01-19 12:58 | DI ---
Indication: ITS.REASON: hypoxia PROCEDURE: CTA PULMONARY EMBOLI: Encounter: Initial Comparison: Chest x-ray from yesterday Technique: Axial CT pulmonary angiographic phase images were performed through the chest after the administration of intravenous contrast. Coronal and Sagittal MIP reconstructed images were created and reviewed. Automated Exposure Control and Iterative Reconstruction dose reducing techniques were utilized. Contrast: Omnipaque 350 72 mL Findings: Pulmonary arteries: Exam is diagnostic to the segmental pulmonary arterial level. Patient body habitus, motion artifact and contrast bolus timing includes adequate evaluation of the subsegmental pulmonary arterial levels. Despite these limitations there does appear to be scattered segmental and subsegmental filling defects in the right upper and lower lobe pulmonary arteries suspicious for pulmonary emboli. Other findings: Mild dependent. No pneumothorax or significant pleural effusion. Lungs are hypoinflated. No focal consolidative pneumonia. The upper abdomen shows no acute findings. Heart is mildly enlarged. No pericardial effusion. No gross axillary or mediastinal adenopathy. Bone windows show no acute findings. Impression: Probable right-sided pulmonary emboli. .
--- NOTE | 2017-01-19 13:30 | NUR ---
states she feels fine vs stable no reaction noted from dye infusion. is sleepy from Benadryl.
[2017-01-19] MEDS ORDERED: RIVAROXABAN 15 MG TABLET PO SCH (13:45)
--- NOTE | 2017-01-19 14:23 | PNPDOC ---
Subjective Date DATE: 01/19/17 TIME: 14:11 Subjective F/U: Acute respiratory failure with hypoxia, Pulm edema, CHF, PE Doing about the same. Feels some SOA despite O2. Notes cough, worse with deep breathing. Not mobilizing sputum. Not sore in chest wall or hurting with breathing/cough. No nausea. Appetite decreased. No ab pain. No f//c. Back pain bothersome. Objective Vital Signs Vital signs Vital Signs Date Time Temp Pulse Resp B/P Pulse Ox O2 Delivery O2 Flow Rate FiO2 01/19/17 13:06 69 16 111/57 92 Nasal Cannula 4.00 01/19/17 12:43 97.7 Height (Feet): 5 Height (Inches): 6.00 Weight (Kilograms): 119.300 General General Appearance: Alert, Obese, Orientated x 3, Well Nourished, Well Developed, Cooperative, Looks Stated Age Eyes (Brief) Eyes: FOUND: EOMI, PERRL, NOT FOUND: scleral icterus ENMT (Brief) ENMT: FOUND: hearing intact, mucosa moist Neck (Brief) Neck: FOUND: midline, NOT FOUND: nuchal rigidity, spasm Respiratory (Brief) Respiratory: NOT FOUND: clear all gonzalez (decreased, basilar crackles), rales, wheezes Cardiovascular (Brief) Cardiac: FOUND: pedal edema (+1 ), regular rate, regular rhythm Abdomen (Brief) Abdominal: FOUND: BS normo active x4, soft, NOT FOUND: distended, tender Extremities (Brief) Extremity : Side: Bilateral Extremity: leg Extremity Finding: FOUND: edema (+1 ), other (SCD ) Musculoskeletal (Brief) Musculoskeletal: NOT FOUND: deformity, spasm Integumentary (Brief) Integumentary: FOUND: dry, warm Neurologic (Brief) Neurological: FOUND: cranial 2-12 intact, motor (Intact ) Psychiatric (Brief) Psychiatric: FOUND: alert, attentive, normal affect, oriented Laboratory Laboratory Laboratory Tests 01/18/17 14:09 01/19/17 01:56 Laboratory Tests 01/18/17 14:09 01/19/17 01:56 Assessment & Plan Problems: (1) Acute respiratory failure with hypoxia Status: Acute (2) Acute exacerbation of CHF (congestive heart failure) Status: Acute Qualifiers: Congestive heart failure type: unspecified congestive heart failure type Qualified Codes: I50.9 - Heart failure, unspecified (3) Pulmonary embolism Status: Acute Qualifiers: Chronicity: acute (4) Pulmonary edema Status: Acute Qualifiers: Chronicity: acute Qualified Codes: J81.0 - Acute pulmonary edema (5) Elevated troponin Status: Acute (6) CAD (coronary artery disease) Status: Chronic (7) Hypertension Status: Chronic (8) Hypothyroid Status: Chronic (9) Sleep apnea Status: Chronic (10) Asthma Status: Chronic (11) Osteoarthritis Status: Chronic Qualifiers: Osteoarthritis location: multiple joints Osteoarthritis type: primary Qualified Codes: M15.0 - Primary generalized (osteo)arthritis (12) Elevated liver enzymes Status: Acute Assessment & Plan: POA (13) Obese Status: Chronic Qualifiers: Obesity type: due to excess calories Obesity severity: morbid Qualified Codes: E66.01 - Morbid (severe) obesity due to excess calories Assessment & Plan: BMI 43.2 on day of admission Plan/Intensity of Service CT PE protocol showing probable PE - Xarelto started by cardiology. Continue Lasix to help pulmonary edema - monitor creatinine, especially in light of CT contrast. Continue with supplemental O2. Encourage IS. Doddridge 5 to help pain. Consult PT/OT to help improve functional status. Recheck CMP in am due to elevated LFT and medication use. Check CBC in am to due to anticoagulants. Case discussed with CM. Time spent with pt care 25 minutes. DVT Prophylaxis: SCD'S, Xarelto Code Status Full Code Hospital Course Summary Disclaimer The hospital course summary below is not to be considered part of the above Progress Note. Hospital Course Summary 01/18/17: Admit, inpatient status. Attending: Dr. Ayers 1. Acute hypoxic respiratory failure, acute CHF exacerbation, elevated troponin * Trend troponin. Monitor rhythm on telemetry. Dr. Velasquez has been consulted. * Echocardiogram and carotid Doppler are pending. * Lasix 40 mg IV 1. Will discuss ongoing diuresis with Dr. Ayers. * DuoNeb every 6 hours. * Continue supplemental oxygen to maintain saturations. * Check lipid panel. Start daily aspirin - history of peptic ulcer disease, monitor closely. 2. Hypertension * Continue lisinopril * Hold Maxzide for now since we will give IV diuresis. 3. Hypothyroidism: Continue levothyroxine and check TSH 4. Asthma * Asthma exacerbation less likely * Continue Advair and DuoNeb's. 01/19 Doing about the same. Feels some SOA despite O2. Notes cough, worse with deep breathing. Not mobilizing sputum. Not sore in chest wall or hurting with breathing/cough. No nausea. Appetite decreased. No ab pain. No f//c. Back pain bothersome. CT PE protocol showing probable PE - Xarelto started by cardiology. Continue Lasix to help pulmonary edema - monitor creatinine, especially in light of CT contrast. Continue with supplemental O2. Encourage IS. Doddridge 5 to help pain. Consult PT/OT to help improve functional status. Recheck CMP in am due to elevated LFT and medication use. Check CBC in am to due to anticoagulants. LIZBETH AYERS MD Jan 19, 2017 14:14
[2017-01-19] MEDS: RIVAROXABAN 15 MG TABLET PO SCH (15:17)
--- NOTE | 2017-01-19 17:37 | NUR ---
status Up to br using walker back to bed. tlel is sr rate 77 is soa on exertion from being up to br. o2 is qt 5 liters.
--- NOTE | 2017-01-19 18:49 | NUR ---
family visiting at bedside. denies any chest pain or soa at rest.
[2017-01-19] MEDS: DiphenhydrAMINE 25 MG CAPSULE PO SCH (22:01)
[2017-01-20] VITALS (13 sets, daily range): BP systolic 133–150; BP diastolic 66–69; PULSE 69–89; RESP 18–20; TEMP 97.8–98.3; O2SAT 86–95
[2017-01-20 05:11] LABS: HGB - HEMOGLOBIN 15.7 GM/DL (12-16); MEAN CORPUSCULAR HGB 30.1 UUG (26-34); MEAN CORPUSCULAR HGB CONC(MCHC 30.2 GM/DL (31-37); MEAN CORPUSCULAR VOLUME 99.8 UM3 (80-100); MEAN PLATELET VOLUME 11.2 UM3 (9.4-12.4); RED BLOOD COUNT 5.21 M/MM3 (4.00-5.20); WBC - WHITE BLOOD COUNT 8.8 T/MM3 (4.5-11.0)
[2017-01-20 05:18] LABS: ALBUMIN 3.9 G/DL (3.5-5.0); ALBUMIN/GLOBULIN RATIO 1.2 RATIO (1.1-2.2); ALKALINE PHOSPHATASE 102 U/L (38-126); ALT (SGPT) 57 U/L (9-52); ANION GAP 11 MEQ/L (5-15); AST (SGOT) 49 U/L (14-36); BUN/CREATININE RATIO 30 RATIO (6-26); CALCIUM 8.7 MG/DL (8.4-10.2); CHLORIDE 95 MEQ/L (98-107); CO2 - CARBON DIOXIDE 39 MEQ/L (22-30); CREATININE 0.6 MG/DL (0.7-1.2); GLOMERULAR FILTRATION RATE 98; GLUCOSE 159 MG/DL (65-110); MAGNESIUM 1.9 MG/DL (1.6-2.3); POTASSIUM 4.3 MEQ/L (3.6-5); SODIUM 145 MEQ/L (134-144); TOTAL PROTEIN 7.1 G/DL (6.3-8.2)
[2017-01-20] MEDS: LEVOTHYROXINE 50 MCG TABLET PO SCH (05:39)
[2017-01-20 05:58] LABS: BAND NEUTROPHILS # 0.4 T/MM3; LYMPHOCYTES # (MANUAL) 1.1 T/MM3 (1-4.8); MONOCYTES # (MANUAL) 0.1 T/MM3 (0-0.8); NEUTROPHILS #(MANUAL)-ABSOLUTE 7.3 T/MM3 (1.8-7.7); TOTAL CELLS COUNTED 100 %
[2017-01-20] MEDS: ALBUTEROL/IPRATROPIUM INHAL. 2.5mg-0.5mg/3ml Neb. AEROSOL SCH ×4 (07:53→19:09)
--- NOTE | 2017-01-20 08:38 | ECHOF ---
DATE OF PROCEDURE January 18, 2017 REFERRING PHYSICIAN Brian Ayers MD This is a two-dimensional echo with spectral Doppler, color-flow and M-mode. It was obtained in a patient with hypoxia. Left atrium is dilated. Left ventricle end-diastolic dimension is at the upper limits of normal. Left ventricular wall thickness is normal. LV systolic function is normal with ejection fraction of 60%. Right atrium is normal. Right ventricle is normal. Aortic root dimension is normal. Mitral annulus is calcified. Mitral valve leaflets are sclerotic with mild mitral regurgitation and no stenosis. Aortic valve shows fibrocalcific changes. Transaortic velocities are increased with peak velocity of 2.2 meters/second with a peak gradient of 20 and mean gradient of 11. Aortic valve area is calculated at 1.73 cm2. Tricuspid valve shows mild tricuspid regurgitation with normal estimated pulmonary artery systolic pressure of 28. Pulmonary valve was not visualized. There is no pericardial effusion. IMPRESSION 1. Technically difficult study. 2. Normal LV systolic function with ejection fraction of 60%. 3. Mitral annulus calcification with mitral sclerosis and mild mitral regurgitation. 4. Aortic sclerosis versus mild aortic stenosis with a valve area of 1.73 cm2 with no aortic insufficiency. 5. Left atrial dilation. 6. Mild tricuspid regurgitation with normal estimated pulmonary artery systolic pressure of 28. 7. Normal LV systolic function with ejection fraction of 60%. MTDD
[2017-01-20] MEDS: RIVAROXABAN 15 MG TABLET PO SCH ×2 (08:44→17:40)
[2017-01-20] MEDS: LISINOPRIL 20 MG TABLET PO SCH (08:44)
[2017-01-20] MEDS: GUAIFENESIN DM 600mg/30mg TABLET PO SCH ×2 (08:44→20:45)
[2017-01-20] MEDS: FUROSEMIDE 40 MG/4 ML INJECTION IV SCH (08:45)
[2017-01-20] MEDS: FLUTICASONE/SALMETEROL 250/50 DISK INHALER ORAL INH SCH (09:00)
[2017-01-20] MEDS ORDERED: acetaZOLAMIDE 250 MG TABLET PO ONE ×2 (09:00→15:00)
--- NOTE | 2017-01-20 10:08 | PNPDOC ---
JANETT MCADAMS TRIM MASTER OPERATOR 01/20/17 1008: Subjective Date DATE: 01/20/17 TIME: 10:05 Subjective Dot is sitting on the side of the bed in her room. She just finished her bath and denies chest pain or pressure. She has some conversational dyspnea and desaturates into the upper %80s briefly. She denies dizziness today. Objective Vital Signs Vital signs Vital Signs 01/20/17 01/20/17 01/20/17 01/20/17 00:23 00:28 07:55 07:55 Temp 98.3 Pulse 82 72 Resp 20 18 16 B/P 144/66 Pulse Ox 91 92 O2 Delivery Nasal Cannula O2 Flow Rate 5.00 01/20/17 01/20/17 01/20/17 07:58 08:04 08:35 Temp 97.8 Pulse 72 69 69 Resp 18 18 B/P 133/69 Pulse Ox 92 O2 Delivery Nasal Cannula O2 Flow Rate 5.00 Telemetry Rhythm: Sinus Rhythm Height (Feet): 5 Height (Inches): 6.00 Weight (Kilograms): 118.300 General Alert, Orientated x 3, Cooperative ENMT (Brief) mucosa moist Neck (Brief) NOT FOUND: JVD, carotid bruits Respiratory (Brief) clear all gonzalez, equal bilaterally (diminished bases), NOT FOUND: rales, wheezes Cardiovascular (Brief) pedal edema, regular rate, regular rhythm, NOT FOUND: click, gallop, murmur, rub Abdomen (Brief) BS normo active x4, soft Integumentary (Brief) dry, pink, warm Psychiatric (Brief) alert, attentive, oriented Laboratory Laboratory Laboratory Tests Test 01/18/17 14:09 01/18/17 15:45 01/18/17 19:35 01/19/17 01:56 White Blood Count 11.2T/MM3 10.3T/MM3 Red Blood Count 5.15M/MM3 4.88M/MM3 Hemoglobin 15.8GM/DL 14.8GM/DL Hematocrit 52.3% 48.6% Mean Corpuscular Volume 101.6UM3 99.6UM3 Mean Corpuscular Hemoglobin 30.7UUG 30.3UUG Mean Corpuscular Hemoglobin Concent 30.2GM/DL 30.5GM/DL RDW Standard Deviation 57.7FL 55.2FL Platelet Count 243T/MM3 236T/MM3 Mean Platelet Volume 10.4UM3 10.5UM3 Immature Granulocyte % (Auto) 0.4% 0.2% Neutrophils (%) (Auto) 67.5% 69.6% Lymphocytes (%) (Auto) 21.5% 19.4% Monocytes (%) (Auto) 7.1% 6.8% Eosinophils (%) (Auto) 2.8% 3.6% Basophils (%) (Auto) 0.7% 0.4% Absolute Immature Granulocyte (auto 0.04T/MM3 0.02T/MM3 Absolute Neutrophils (auto) 7.6T/MM3 7.2T/MM3 Absolute Lymphocytes (auto) 2.4T/MM3 2.0T/MM3 Absolute Monocytes (auto) 0.8T/MM3 0.7T/MM3 Absolute Eosinophils (auto) 0.3T/MM3 0.4T/MM3 Absolute Basophils (auto) 0.1T/MM3 0.0T/MM3 Turbidity < 20 < 20 < 20 Sodium Level 146MEQ/L 144MEQ/L Potassium Level 4.7MEQ/L 3.7MEQ/L Chloride Level 100MEQ/L 98MEQ/L Carbon Dioxide Level 36MEQ/L 36MEQ/L Anion Gap 10MEQ/L 10MEQ/L Blood Urea Nitrogen 18.0MG/DL 17.0MG/DL Creatinine 0.6MG/DL 0.6MG/DL Glomerular Filtration Rate Calc 98 98 BUN/Creatinine Ratio 30RATIO 28RATIO Glucose Level 97MG/DL 104MG/DL Calculated Osmolality 283MOSM/KG 279MOSM/KG Calcium Level 9.6MG/DL 9.0MG/DL Icterus Index < 2 < 2 < 2 Troponin I 0.144ng/ml 0.326ng/ml 0.346ng/ml ZI-Vro-S-Type Natriuretic Peptide 1310PG/ML Vitamin B12 Level 587PG/ML Thyroid Stimulating Hormone (TSH) 1.38MIU/L Chemistry Specimen Hemolysis < 15 < 15 < 15 Arterial Blood pH 7.390 Arterial Blood Partial Pressure CO2 62MMHG Arterial Blood pO2 at Patient Temp 68MMHG Arterial Blood HCO3 38MEQ/L Arterial Blood Total CO2 39.4MEQ/L Arterial Blood Oxygen Saturation 93.0% Arterial Blood Base Excess 10.3MMOL/L Oxygen Delivery Method (LAB) Nasal cannula,liters Blood Gas Oxygen Liter Flow 3.5 Blood Gas Oxygen Percent Given Blood Gas Vent Rate Blood Gas Tidal Volume ML Total Bilirubin 1.70MG/DL Conjugated Bilirubin 0.00MG/DL Unconjugated Bilirubin 1.10MG/DL Aspartate Amino Transf (AST/SGOT) 55U/L Alanine Aminotransferase (ALT/SGPT) 59U/L Alkaline Phosphatase 124U/L Total Protein 8.0G/DL Albumin 4.3G/DL Globulin 3.7G/DL Albumin/Globulin Ratio 1.2RATIO Triglycerides Level 130MG/DL Cholesterol Level 207MG/DL LDL Cholesterol, Calculated 147.0 VLDL Cholesterol 26.0MG/DL HDL Cholesterol Direct 34MG/DL Cholesterol/HDL Ratio 6.1RATIO Test 01/19/17 10:55 01/20/17 04:29 01/20/17 05:00 Troponin I 0.175ng/ml Chemistry Specimen Hemolysis 15 19 White Blood Count 8.8T/MM3 Red Blood Count 5.21M/MM3 Hemoglobin 15.7GM/DL Hematocrit 52.0% Mean Corpuscular Volume 99.8UM3 Mean Corpuscular Hemoglobin 30.1UUG Mean Corpuscular Hemoglobin Concent 30.2GM/DL RDW Standard Deviation 57.2FL Platelet Count 266T/MM3 Mean Platelet Volume 11.2UM3 Immature Granulocyte % (Auto) % Neutrophils (%) (Auto) % Lymphocytes (%) (Auto) % Monocytes (%) (Auto) % Eosinophils (%) (Auto) % Basophils (%) (Auto) % Absolute Immature Granulocyte (auto T/MM3 Absolute Neutrophils (auto) T/MM3 Absolute Lymphocytes (auto) T/MM3 Absolute Monocytes (auto) T/MM3 Absolute Eosinophils (auto) T/MM3 Absolute Basophils (auto) T/MM3 Neutrophils % (Manual) 83.0% Band Neutrophils % 4.0% Lymphocytes % (Manual) 12.0% Monocytes % (Manual) 1.0% Absolute Neutrophils (Manual) 7.3T/MM3 Band Neutrophils # 0.4T/MM3 Lymphocytes # (Manual) 1.1T/MM3 Monocytes # (Manual) 0.1T/MM3 Red Cell Morphology Comment Normal Turbidity < 20 Sodium Level 145MEQ/L Potassium Level 4.3MEQ/L Chloride Level 95MEQ/L Carbon Dioxide Level 39MEQ/L Anion Gap 11MEQ/L Blood Urea Nitrogen 18.0MG/DL Creatinine 0.6MG/DL Glomerular Filtration Rate Calc 98 BUN/Creatinine Ratio 30RATIO Glucose Level 159MG/DL Calculated Osmolality 284MOSM/KG Calcium Level 8.7MG/DL Magnesium Level 1.9MG/DL Total Bilirubin 1.00MG/DL Icterus Index < 2 Aspartate Amino Transf (AST/SGOT) 49U/L Alanine Aminotransferase (ALT/SGPT) 57U/L Alkaline Phosphatase 102U/L Total Protein 7.1G/DL Albumin 3.9G/DL Globulin 3.2G/DL Albumin/Globulin Ratio 1.2RATIO Adenovirus (PCR) Negative Bordetella parapertussis DNA (PCR) Negative Chlamydia pneumoniae DNA (PCR) Negative Coronavirus Type OC43 (PCR) Negative Coronavirus Type HKU1 (PCR) Negative Coronavirus Type 229E (PCR) Negative Coronavirus Type NL63 (PCR) Negative Human Metapneumovirus (PCR) Negative Influenza Virus Type A (PCR) Negative Influenza Virus Type B (PCR) Negative Mycoplasma pneumoniae (PCR) Negative Parainfluenza Type 1 (PCR) Negative Parainfluenza Type 2 (PCR) Negative Parainfluenza Type 3 (PCR) Negative Parainfluenza Type 4 (PCR) Negative Respiratory Syncytial Virus (PCR) Negative Enterovirus/Rhinovirus (PCR) Negative Laboratory Tests 01/20/17 04:29 Laboratory Tests 01/20/17 04:29 Medications Current Medications Aspirin (Ecotrin) 81 mg O ONCE PO Last administered on 01/18/17 18:45; Start 01/18/17 at 15:45; Stop 01/18/17 at 15:46; Status DC Enoxaparin Sodium (Lovenox) 40 mg DAILY SQ Last administered on 01/19/17 09:13 ; Start 01/19/17 at 09:00; Stop 01/19/17 at 13:46; Status DC Albuterol/ Ipratropium (Duoneb) 3 ml Q2H PRN AEROSOL ; Start 01/18/17 at 17:15 Acetaminophen (Tylenol Arthritis) 1,300 mg DAILY PRN PO PAIN; Start 01/18/17 at 17:15; Stop 01/18/17 at 18:37; Status DC Salmeterol Xinafoate/ Fluticasone (Advair 250-50 Diskus) 1 puff DAILY ORAL INH Last administered on 01/19/17 08:41; Start 01/19/17 at 09:00 Levothyroxine Sodium (Synthroid) 50 mcg ACB PO Last administered on 01/20/17 05:39; Start 01/19/17 at 06:30 Aspirin (ASA) 81 mg DAILY PO Last administered on 01/19/17 09:13; Start at 09:00; Stop 01/19/17 at 15:49; Status DC Lisinopril (Prinivil) 20 mg DAILY PO Last administered on 01/20/17 08:44; Start 01/19/17 at 09:00 Miscellaneous Medication (May use PRN orders) PRN PRN MC ; Start 01/18/17 at 18:30 Magnesium Hydroxide (Mom) 30 ml DAILY PRN PO CONSTIPATION; Start 01/18/17 at 18 :30 Bisacodyl (Dulcolax) 10 mg DAILY PRN RECTALLY CONSTIPATION; Start 01/18/17 at 18:30 Al Hydroxide/Mg Hydroxide (Maalox) 30 ml Q3H PRN PO INDIGESTION; Start at 18:30 Acetaminophen (Tylenol Regular Strength) 1-2 TABS PO Q5H PRN PO DISCOMFORT; Start 01/18/17 at 18:30 Nitroglycerin (Nitrostat) 0.4 mg Q5M PRN SL CHEST PAIN; Start 01/18/17 at 18:30 Guaifenesin/ Dextromethorphan (Mucinex Dm 600/ 30 Mg Tablet) 1 tab Q12HR PO Last administered on 01/20/17 08:44; Start 01/18/17 at 21:00 Furosemide (Lasix) 40 mg BID. IV Last administered on 01/20/17 08:45; Start at 09:00 Acetaminophen/ Codeine Phosphate (Tylenol #3) 1 tab Q6H PRN PO PAIN Last administered on 01/18/17 22:52; Start 01/18/17 at 23:00; Stop 01/19/17 at 14:16 ; Status DC Iohexol 1 bottle 1 bottle STK-MED ONCE .ROUTE ; Start 01/19/17 at 11:20; Stop at 11:21; Status DC Sodium Chloride (NS) 100 ml @ As Directed STK-MED ONCE .ROUTE ; Start 01/19/17 at 11:20; Stop 01/19/17 at 11:21; Status DC Sodium Chloride (Iv Flush) 10 ml STK-MED ONCE .ROUTE ; Start 01/19/17 at 11:20; Stop 01/19/17 at 11:21; Status DC Methylprednisolone Sodium Succinate (Solu-Medrol) 125 mg O ONCE IV Last administered on 01/19/17 11:54; Start 01/19/17 at 11:30; Stop 01/19/17 at 11:37 ; Status DC Diphenhydramine HCl (Benadryl) 50 mg O ONCE IV Last administered on 01/19/17 11:54; Start 01/19/17 at 11:30; Stop 01/19/17 at 11:37; Status DC Rivaroxaban (Xarelto) 15 mg BIDWM PO Last administered on 01/20/17 08:44; Start 01/19/17 at 14:00; Stop 02/10/17 at 17:31 Acetaminophen/ Hydrocodone Bitart ([place] 5/325) 1 tab Q5H PRN PO PAIN; Start at 14:00 Acetazolamide (Diamox) 500 mg O ONCE PO ; Start 01/20/17 at 15:00; Stop at 15:01 Assessment & Plan Problems: (1) Pulmonary embolism Status: Acute Qualifiers: Pulmonary embolism type: other Chronicity: acute Acute cor pulmonale presence: without acute cor pulmonale Qualified Codes: I26.99 - Other pulmonary embolism without acute cor pulmonale Assessment & Plan: Xarelto 15mg BID X 21days, then 20mg daily (2) Elevated troponin Status: Acute Assessment & Plan: 1) 0.144. trend serial troponin. EKG without ischemic changes. (3) Hypoxia Status: Acute Assessment & Plan: reported in the 70s at immediate care (4) CAD (coronary artery disease) Status: Chronic Assessment & Plan: reports last heart cath 10 years ago (5) Mild aortic stenosis Status: Chronic Assessment & Plan: Obtain echo (6) Carotid artery bruit Status: Chronic Assessment & Plan: obtain carotid doppler (7) Hypertension Status: Chronic Assessment & Plan: Poor control in ED. Takes Lisinopril and Triamterene/HCTZ at home (8) Obese Status: Chronic Qualifiers: Obesity type: due to excess calories Obesity severity: morbid Qualified Codes: E66.01 - Morbid (severe) obesity due to excess calories Plan/Intensity of Service 01/19/16 Trend serial troponin levels. Obtain Echo due to Mild and Carotid doppler due to Left bruit heard. Needs better BP control as well. 01/19/17 Troponin trending down. Carotids without significant stenosis. PE on CTA: Xarelto 15mg BID X 21days, then 20mg daily for 3 months for PE, DC aspirin. 01/20/17 Decrease Lasix to Daily NEELAM CHACKO MD 01/25/17 1627: Assessment & Plan Plan/Intensity of Service After examining the patient I agree with the above assessment. I am involved in the formulation of the patient's plan of care. JANETT MCADAMS TRIM MASTER OPERATOR Jan 20, 2017 10:08 NEELAM CHACKO MD Jan 25, 2017 16:27
--- NOTE | 2017-01-20 11:30 | NUR ---
STATUS PT ALERT AND ORIENTED X3. DENIED SOA, PAIN, AND CHEST PAIN. ATTEMPTED TO WEAN O2 THIS MORNING O2SAT DROPPED TO 86 % AT 3 L. O2SAT 94% AT 4 L. PT EATING WITHOUT NAUSEA. WILL CONTINUE TO MONITOR.
--- NOTE | 2017-01-20 17:14 | PNPDOC ---
Subjective Date DATE: 01/20/17 TIME: 17:02 Subjective F/U: Acute respiratory failure with hypoxia, Pulm edema, CHF, PE Feeling better-less washed out. Still notes unsteadiness when up. Worked with therapy today. Breathing improving, but still having cough and not able to maintain saturations without O2. No pain with breathing or chest pain. No nausea or ab pain. No stool. Objective Vital Signs Vital signs Vital Signs Date Time Temp Pulse Resp B/P Pulse Ox O2 Delivery O2 Flow Rate FiO2 01/20/17 15:22 98.0 89 20 150/66 92 Nasal Cannula 3.50 Telemetry Rhythm: Sinus Rhythm Height (Feet): 5 Height (Inches): 6.00 Weight (Kilograms): 118.300 General General Appearance: Alert, Obese, Orientated x 3, Well Nourished, Well Developed, Cooperative, Mild Distress, Looks Stated Age Eyes (Brief) Eyes: FOUND: EOMI, PERRL, NOT FOUND: scleral icterus ENMT (Brief) ENMT: FOUND: hearing intact, mucosa moist Neck (Brief) Neck: FOUND: nuchal rigidity, spasm, NOT FOUND: midline Respiratory (Brief) Respiratory: FOUND: equal bilaterally, NOT FOUND: clear all gonzalez (Decreased breah sounds bilaterally, little air movement. ), rales, wheezes Cardiovascular (Brief) Cardiac: FOUND: pedal edema (+1 ), regular rate, regular rhythm Abdomen (Brief) Abdominal: FOUND: BS normo active x4, soft, NOT FOUND: distended, tender Extremities (Brief) Extremity : Side: Bilateral Extremity: leg Extremity Finding: FOUND: edema (+1 ) Musculoskeletal (Brief) Musculoskeletal: FOUND: extremities move equally, NOT FOUND: deformity, spasm Integumentary (Brief) Integumentary: FOUND: dry, warm Neurologic (Brief) Neurological: FOUND: cranial 2-12 intact, motor (Intact ) Psychiatric (Brief) Psychiatric: FOUND: alert, attentive, normal affect, oriented Laboratory Laboratory Laboratory Tests 01/19/17 01:56 01/20/17 04:29 Laboratory Tests 01/19/17 01:56 01/20/17 04:29 Assessment & Plan Problems: (1) Acute respiratory failure with hypoxia Status: Acute (2) Acute exacerbation of CHF (congestive heart failure) Status: Acute Qualifiers: Congestive heart failure type: diastolic Qualified Codes: I50.33 - Acute on chronic diastolic (congestive) heart failure Assessment & Plan: ECHO with normal EF (3) Pulmonary embolism Status: Acute Qualifiers: Pulmonary embolism type: other Chronicity: acute Acute cor pulmonale presence: without acute cor pulmonale Qualified Codes: I26.99 - Other pulmonary embolism without acute cor pulmonale (4) Pulmonary edema Status: Acute Qualifiers: Chronicity: acute Qualified Codes: J81.0 - Acute pulmonary edema (5) Elevated troponin Status: Acute (6) CAD (coronary artery disease) Status: Chronic (7) Hypertension Status: Chronic (8) Asthma Status: Chronic (9) Sleep apnea Status: Chronic (10) Hypothyroid Status: Chronic (11) Osteoarthritis Status: Chronic Qualifiers: Osteoarthritis location: multiple joints Osteoarthritis type: primary Qualified Codes: M15.0 - Primary generalized (osteo)arthritis (12) Elevated liver enzymes Status: Acute Assessment & Plan: POA (13) Obese Status: Chronic Qualifiers: Obesity type: due to excess calories Obesity severity: morbid Qualified Codes: E66.01 - Morbid (severe) obesity due to excess calories Assessment & Plan: BMI 43.2 on day of admission Plan/Intensity of Service With increasing CO2 did give Diamox 500mg x2, 6 hours apart. Cardiology decreased Lasix to 40mg IV daily. Continue Xarelto for treatment of PE. Continue with supplemental O2, decreasing as able. Continue IS and deep breathing. PT/OT helping to increase functional abilities. Recheck BMP in am due to diuretic use. Will check CBC in am due to Xarelto. Case discussed with CM. Time spent with pt care 35 minutes. DVT Prophylaxis: Xarelto Code Status Full Code Hospital Course Summary Disclaimer The hospital course summary below is not to be considered part of the above Progress Note. Hospital Course Summary 01/18/17: Admit, inpatient status. Attending: Dr. Ayers 1. Acute hypoxic respiratory failure, acute CHF exacerbation, elevated troponin * Trend troponin. Monitor rhythm on telemetry. Dr. Velasquez has been consulted. * Echocardiogram and carotid Doppler are pending. * Lasix 40 mg IV 1. Will discuss ongoing diuresis with Dr. Ayers. * DuoNeb every 6 hours. * Continue supplemental oxygen to maintain saturations. * Check lipid panel. Start daily aspirin - history of peptic ulcer disease, monitor closely. 2. Hypertension * Continue lisinopril * Hold Maxzide for now since we will give IV diuresis. 3. Hypothyroidism: Continue levothyroxine and check TSH 4. Asthma * Asthma exacerbation less likely * Continue Advair and DuoNeb's. 01/19 Doing about the same. Feels some SOA despite O2. Notes cough, worse with deep breathing. Not mobilizing sputum. Not sore in chest wall or hurting with breathing/cough. No nausea. Appetite decreased. No ab pain. No f//c. Back pain bothersome. CT PE protocol showing probable PE - Xarelto started by cardiology. Continue Lasix to help pulmonary edema - monitor creatinine, especially in light of CT contrast. Continue with supplemental O2. Encourage IS. [place] 5 to help pain. Consult PT/OT to help improve functional status. Recheck CMP in am due to elevated LFT and medication use. Check CBC in am to due to anticoagulants. 01/20 Feeling better-less washed out. Still notes unsteadiness when up. Worked with therapy today. Breathing improving, but still having cough and not able to maintain saturations without O2. No pain with breathing or chest pain. No nausea or ab pain. No stool. Creatinine stable at 0.9. CO2 increased to 39. Liver enzymes decreasing. With increasing CO2 did give Diamox 500mg x2, 6 hours apart. Cardiology decreased Lasix to 40mg IV daily. Continue Xarelto for treatment of PE. Continue with supplemental O2, decreasing as able. Continue IS and deep breathing. PT/OT helping to increase functional abilities. Recheck CMP in am due to diuretic use and elevated liver enzymes. Will check CBC in am due to Xarelto. LIZBETH AYERS MD Jan 20, 2017 17:05
--- NOTE | 2017-01-20 18:32 | NUR ---
SUMMARY PT WORKED WITH THERAPY IN HER ROOM. VS STABLE CHARTED. PT IS ON 3.5 L OF O2 TO MAINTAIN TISSUE PERFUSION. FAMILY WITH PT AT THIS TIME.
[2017-01-20] MEDS: HYDROCODONE/APAP 5 mg/325 mg TABLET PO PRN (18:57)
--- NOTE | 2017-01-20 18:58 | NUR ---
PAIN PT C/O'S BACK PAIN RATED 7/10. NORCO 5 i TAB PO GIVEN FOR THIS C/O. WILL MONITOR.
[2017-01-20] MEDS: DiphenhydrAMINE 25 MG CAPSULE PO SCH (20:45)
[2017-01-21] VITALS (9 sets, daily range): BP systolic 115–136; BP diastolic 61–70; PULSE 68–80; RESP 18–20; TEMP 97.7–98.5; O2SAT 92–96
--- NOTE | 2017-01-21 04:57 | NUR ---
SHIFT SUMMARY: PT IS A&OX3, FRIENDLY AND COOPERATIVE. DENIES SOA, CHEST PAIN OR N/V, IS IV LOCKED, ON 3.5L NC, ON TELEMETRY. PT SLEPT WELL DURING THE NIGHT. CALL LIGHT WITHIN REACH, BED ALARM ON.
[2017-01-21 05:29] LABS: BASOPHILS % (AUTO) 0.2 % (0-2); EOSINOPHILS # (AUTO) 0.2 T/MM3 (0-0.5); EOSINOPHILS % (AUTO) 1.4 % (0-4); HCT - HEMATOCRIT 50.9 % (36-46); HGB - HEMOGLOBIN 15.2 GM/DL (12-16); IMMATURE GRANULOCYTE # (AUTO) 0.02 T/MM3 (0.00-0.03); IMMATURE GRANULOCYTE % (AUTO) 0.2 % (0.0-0.5); LYMPHOCYTES # (AUTO) 2.4 T/MM3 (1-4.8); LYMPHOCYTES % (AUTO) 18.9 % (23-45); MEAN CORPUSCULAR HGB 30.5 UUG (26-34); MEAN CORPUSCULAR HGB CONC(MCHC 29.9 GM/DL (31-37); MEAN CORPUSCULAR VOLUME 102.2 UM3 (80-100); MEAN PLATELET VOLUME 10.9 UM3 (9.4-12.4); MONOCYTES % (AUTO) 8.4 % (0-9.0); NEUTROPHILS #(AUTO)-ABSOLUTE 8.8 T/MM3 (1.8-7.7); NEUTROPHILS % (AUTO) 70.9 % (33-66); RED BLOOD COUNT 4.98 M/MM3 (4.00-5.20); WBC - WHITE BLOOD COUNT 12.4 T/MM3 (4.5-11.0)
[2017-01-21 05:42] LABS: ALBUMIN 3.5 G/DL (3.5-5.0); ALBUMIN/GLOBULIN RATIO 1.1 RATIO (1.1-2.2); ALKALINE PHOSPHATASE 86 U/L (38-126); ALT (SGPT) 46 U/L (9-52); ANION GAP 11 MEQ/L (5-15); AST (SGOT) 32 U/L (14-36); BUN/CREATININE RATIO 31 RATIO (6-26); CALCIUM 8.9 MG/DL (8.4-10.2); CHLORIDE 98 MEQ/L (98-107); CO2 - CARBON DIOXIDE 38 MEQ/L (22-30); CREATININE 0.8 MG/DL (0.7-1.2); GLOMERULAR FILTRATION RATE 70; GLUCOSE 111 MG/DL (65-110); MAGNESIUM 2.1 MG/DL (1.6-2.3); POTASSIUM 3.5 MEQ/L (3.6-5); SODIUM 147 MEQ/L (134-144); TOTAL PROTEIN 6.6 G/DL (6.3-8.2)
[2017-01-21] MEDS: LEVOTHYROXINE 50 MCG TABLET PO SCH (06:02)
[2017-01-21] MEDS: ALBUTEROL/IPRATROPIUM INHAL. 2.5mg-0.5mg/3ml Neb. AEROSOL SCH ×4 (06:51→18:44)
[2017-01-21] MEDS: GUAIFENESIN DM 600mg/30mg TABLET PO SCH ×2 (08:11→21:52)
[2017-01-21] MEDS: HYDROCODONE/APAP 5 mg/325 mg TABLET PO PRN ×3 (08:11→19:23)
[2017-01-21] MEDS: LISINOPRIL 20 MG TABLET PO SCH (08:11)
[2017-01-21] MEDS: RIVAROXABAN 15 MG TABLET PO SCH ×2 (08:12→17:23)
--- NOTE | 2017-01-21 08:52 | DI ---
INDICATION: ITS.REASON: F/U pulmonary edema PROCEDURE: CHEST 2-VIEWS UPRIGHT (PA \T\ LAT) Encounter: Initial COMPARISON: January 18, 2017 FINDINGS: Prominent interstitial markings are again noted without significant change. Increasing small bilateral pleural effusions. No pneumothorax. Cardiac silhouette remains enlarged. Mediastinal contours are stable. Pulmonary vascularity appears stable. Impression: Slight increase in small pleural effusions. .
[2017-01-21] MEDS ORDERED: FUROSEMIDE 40 MG/4 ML INJECTION IV SCH (09:00)
[2017-01-21] MEDS: FLUTICASONE/SALMETEROL 250/50 DISK INHALER ORAL INH SCH (09:14)
--- NOTE | 2017-01-21 11:40 | NUR ---
CM CM VISITED WITH PT. CM PROVIDED CONTACT INFORMATION. PT AWARE TO CALL CM SHOULD NEEDS ARISE.
[2017-01-21] MEDS ORDERED: POTASSIUM CHLORIDE 20 MEQ TABLET PO ONE (12:30)
[2017-01-21] MEDS ORDERED: acetaZOLAMIDE 250 MG TABLET PO ONE (14:15)
--- NOTE | 2017-01-21 14:28 | PNPDOC ---
Subjective Date DATE: 01/21/17 TIME: 14:18 Subjective F/U: Acute respiratory failure with hypoxia, Pulm edema, CHF, PE Had rash to back this morning-reports raised welts. Very itchy. Has subsided. Breathing doing fair-still notes SOA and some cough. Little congestion, no sputum. No pain with breathing. Coughs with deep breath. Requiring O2 at 3.5L to maintain saturations. Appetite decreased. No nausea or ab pain. Urinating well. Is ambulating in halls with assistance. Objective Vital Signs Vital signs Vital Signs Date Time Temp Pulse Resp B/P Pulse Ox O2 Delivery O2 Flow Rate FiO2 01/21/17 10:46 73 01/21/17 10:36 16 93 01/21/17 08:13 127/61 Nasal Cannula 3.50 01/21/17 07:56 98.4 Telemetry Rhythm: Sinus Rhythm Height (Feet): 5 Height (Inches): 6.00 Weight (Kilograms): 118.300 General General Appearance: Alert, Obese, Orientated x 3, Well Nourished, Well Developed, Cooperative, Mild Distress, Looks Stated Age Eyes (Brief) Eyes: FOUND: EOMI, PERRL, NOT FOUND: scleral icterus ENMT (Brief) ENMT: FOUND: hearing intact, mucosa moist Neck (Brief) Neck: FOUND: midline, NOT FOUND: nuchal rigidity, spasm Respiratory (Brief) Respiratory: NOT FOUND: clear all gonzalez (Decreased bilatareally. Faint crackles. Shallow breathing.), rales, wheezes Cardiovascular (Brief) Cardiac: FOUND: pedal edema (Trace ), regular rate, regular rhythm Abdomen (Brief) Abdominal: FOUND: BS normo active x4, soft, NOT FOUND: distended, tender Extremities (Brief) Extremity : Side: Bilateral Extremity: leg Extremity Finding: FOUND: edema (Trace ) Musculoskeletal (Brief) Musculoskeletal: FOUND: extremities move equally, NOT FOUND: deformity, spasm Integumentary (Brief) Integumentary: FOUND: dry, warm Neurologic (Brief) Neurological: FOUND: cranial 2-12 intact, motor (Intact ) Psychiatric (Brief) Psychiatric: FOUND: alert, attentive, normal affect, oriented Laboratory Laboratory Laboratory Tests 01/20/17 04:29 01/21/17 05:00 Laboratory Tests 01/20/17 04:29 01/21/17 05:00 Assessment & Plan Problems: (1) Acute respiratory failure with hypoxia Status: Acute (2) Acute exacerbation of CHF (congestive heart failure) Status: Acute Qualifiers: Congestive heart failure type: diastolic Qualified Codes: I50.33 - Acute on chronic diastolic (congestive) heart failure Assessment & Plan: ECHO with normal EF (3) Pulmonary embolism Status: Acute Qualifiers: Pulmonary embolism type: other Chronicity: acute Acute cor pulmonale presence: without acute cor pulmonale Qualified Codes: I26.99 - Other pulmonary embolism without acute cor pulmonale (4) Pulmonary edema Status: Acute Qualifiers: Chronicity: acute Qualified Codes: J81.0 - Acute pulmonary edema (5) Elevated troponin Status: Acute (6) CAD (coronary artery disease) Status: Chronic (7) Hypertension Status: Chronic (8) Asthma Status: Chronic (9) Sleep apnea Status: Chronic (10) Hypothyroid Status: Chronic (11) Osteoarthritis Status: Chronic Qualifiers: Osteoarthritis location: multiple joints Osteoarthritis type: primary Qualified Codes: M15.0 - Primary generalized (osteo)arthritis (12) Elevated liver enzymes Status: Acute Assessment & Plan: POA (13) Obese Status: Chronic Qualifiers: Obesity type: due to excess calories Obesity severity: morbid Qualified Codes: E66.01 - Morbid (severe) obesity due to excess calories Assessment & Plan: BMI 43.2 on day of admission Plan/Intensity of Service Give 500mg Diamox this afternoon. Continue Lasix 40mg IV daily. Potassium decreased - 20mEq KCl given at noon. Mg normal. Continue Xarelto for treatment of PE. Continue with supplemental O2, decreasing as able. Continue breathing exercises. Encourage continue activities. Continue work with therapy. Monitor for recurrence of rash. Recheck BMP in am due to diuretic use. Will check CBC in am due to Xarelto. Pt wonders when she can return to work - uncertain at this time, but told her return next week is not possible. Time spent with pt care 35 minutes. DVT Prophylaxis: Xarelto Code Status Full Code Hospital Course Summary Disclaimer The hospital course summary below is not to be considered part of the above Progress Note. Hospital Course Summary 01/18/17: Admit, inpatient status. Attending: Dr. Ayers 1. Acute hypoxic respiratory failure, acute CHF exacerbation, elevated troponin * Trend troponin. Monitor rhythm on telemetry. Dr. Velasquez has been consulted. * Echocardiogram and carotid Doppler are pending. * Lasix 40 mg IV 1. Will discuss ongoing diuresis with Dr. Ayers. * DuoNeb every 6 hours. * Continue supplemental oxygen to maintain saturations. * Check lipid panel. Start daily aspirin - history of peptic ulcer disease, monitor closely. 2. Hypertension * Continue lisinopril * Hold Maxzide for now since we will give IV diuresis. 3. Hypothyroidism: Continue levothyroxine and check TSH 4. Asthma * Asthma exacerbation less likely * Continue Advair and DuoNeb's. 01/19 Doing about the same. Feels some SOA despite O2. Notes cough, worse with deep breathing. Not mobilizing sputum. Not sore in chest wall or hurting with breathing/cough. No nausea. Appetite decreased. No ab pain. No f//c. Back pain bothersome. CT PE protocol showing probable PE - Xarelto started by cardiology. Continue Lasix to help pulmonary edema - monitor creatinine, especially in light of CT contrast. Continue with supplemental O2. Encourage IS. [place] 5 to help pain. Consult PT/OT to help improve functional status. Recheck CMP in am due to elevated LFT and medication use. Check CBC in am to due to anticoagulants. 01/20 Feeling better-less washed out. Still notes unsteadiness when up. Worked with therapy today. Breathing improving, but still having cough and not able to maintain saturations without O2. No pain with breathing or chest pain. No nausea or ab pain. No stool. Creatinine stable at 0.9. CO2 increased to 39. Liver enzymes decreasing. With increasing CO2 did give Diamox 500mg x2, 6 hours apart. Cardiology decreased Lasix to 40mg IV daily. Continue Xarelto for treatment of PE. Continue with supplemental O2, decreasing as able. Continue IS and deep breathing. PT/OT helping to increase functional abilities. Recheck CMP in am due to diuretic use and elevated liver enzymes. Will check CBC in am due to Xarelto. 01/21 Had rash to back this morning-reports raised welts. Very itchy. Has subsided. Breathing doing fair-still notes SOA and some cough. Little congestion, no sputum. No pain with breathing. Coughs with deep breath. Requiring O2 at 3.5L to maintain saturations. Appetite decreased. No nausea or ab pain. Urinating well. Is ambulating in halls with assistance. Give 500mg Diamox this afternoon. Continue Lasix 40mg IV daily. Potassium decreased - 20mEq KCl given at noon. Mg normal. Continue Xarelto for treatment of PE. Continue with supplemental O2, decreasing as able. Continue breathing exercises. Encourage continue activities. Continue work with therapy. Monitor for recurrence of rash. Recheck BMP in am due to diuretic use. Will check CBC in am due to Xarelto. Pt wonders when she can return to work - uncertain at this time, but told her return next week is not possible. LIZBETH AYERS MD Jan 21, 2017 14:21
--- NOTE | 2017-01-21 19:47 | PNPDOC ---
JANETT MCADAMS INSTALLATION COORDINATOR 01/21/17 1201: Subjective Date DATE: 01/21/17 TIME: 12:00 Subjective Dot is laying in bed, her family at the bedside. Her skin is covered in a diffuse red rash. She denies chest pain or palpitations, states her breathing is okay. Objective Vital Signs Vital signs Vital Signs 01/21/17 01/21/17 01/21/17 01/21/17 06:52 06:52 07:01 07:56 Temp 98.4 Pulse 69 72 68 Resp 12 18 B/P 136/67 Pulse Ox 95 94 O2 Delivery Nasal Cannula O2 Flow Rate 3.50 01/21/17 01/21/17 01/21/17 01/21/17 08:13 10:36 10:36 10:46 Pulse 80 68 73 Resp 20 16 B/P 127/61 Pulse Ox 93 O2 Delivery Nasal Cannula O2 Flow Rate 3.50 Telemetry Rhythm: Sinus Rhythm Height (Feet): 5 Height (Inches): 6.00 Weight (Kilograms): 118.300 General Alert, Orientated x 3 ENMT (Brief) mucosa moist Neck (Brief) NOT FOUND: JVD, carotid bruits Respiratory (Brief) clear all gonzalez, equal bilaterally (diminished bases) Cardiovascular (Brief) pedal edema, regular rate, regular rhythm, NOT FOUND: click, gallop, murmur, rub Integumentary (Brief) dry, pink, warm Psychiatric (Brief) alert, oriented Laboratory Laboratory Laboratory Tests Test 01/20/17 04:29 01/20/17 05:00 01/21/17 05:00 White Blood Count 8.8T/MM3 12.4T/MM3 Red Blood Count 5.21M/MM3 4.98M/MM3 Hemoglobin 15.7GM/DL 15.2GM/DL Hematocrit 52.0% 50.9% Mean Corpuscular Volume 99.8UM3 102.2UM3 Mean Corpuscular Hemoglobin 30.1UUG 30.5UUG Mean Corpuscular Hemoglobin Concent 30.2GM/DL 29.9GM/DL RDW Standard Deviation 57.2FL 59.5FL Platelet Count 266T/MM3 305T/MM3 Mean Platelet Volume 11.2UM3 10.9UM3 Immature Granulocyte % (Auto) % 0.2% Neutrophils (%) (Auto) % 70.9% Lymphocytes (%) (Auto) % 18.9% Monocytes (%) (Auto) % 8.4% Eosinophils (%) (Auto) % 1.4% Basophils (%) (Auto) % 0.2% Absolute Immature Granulocyte (auto T/MM3 0.02T/MM3 Absolute Neutrophils (auto) T/MM3 8.8T/MM3 Absolute Lymphocytes (auto) T/MM3 2.4T/MM3 Absolute Monocytes (auto) T/MM3 1.0T/MM3 Absolute Eosinophils (auto) T/MM3 0.2T/MM3 Absolute Basophils (auto) T/MM3 0.0T/MM3 Neutrophils % (Manual) 83.0% Band Neutrophils % 4.0% Lymphocytes % (Manual) 12.0% Monocytes % (Manual) 1.0% Absolute Neutrophils (Manual) 7.3T/MM3 Band Neutrophils # 0.4T/MM3 Lymphocytes # (Manual) 1.1T/MM3 Monocytes # (Manual) 0.1T/MM3 Red Cell Morphology Comment Normal Turbidity < 20 < 20 Sodium Level 145MEQ/L 147MEQ/L Potassium Level 4.3MEQ/L 3.5MEQ/L Chloride Level 95MEQ/L 98MEQ/L Carbon Dioxide Level 39MEQ/L 38MEQ/L Anion Gap 11MEQ/L 11MEQ/L Blood Urea Nitrogen 18.0MG/DL 25.0MG/DL Creatinine 0.6MG/DL 0.8MG/DL Glomerular Filtration Rate Calc 98 70 BUN/Creatinine Ratio 30RATIO 31RATIO Glucose Level 159MG/DL 111MG/DL Calculated Osmolality 284MOSM/KG 287MOSM/KG Calcium Level 8.7MG/DL 8.9MG/DL Magnesium Level 1.9MG/DL 2.1MG/DL Total Bilirubin 1.00MG/DL 0.90MG/DL Icterus Index < 2 < 2 Aspartate Amino Transf (AST/SGOT) 49U/L 32U/L Alanine Aminotransferase (ALT/SGPT) 57U/L 46U/L Alkaline Phosphatase 102U/L 86U/L Troponin I 0.089ng/ml WK-Bat-B-Type Natriuretic Peptide 660PG/ML Total Protein 7.1G/DL 6.6G/DL Albumin 3.9G/DL 3.5G/DL Globulin 3.2G/DL 3.1G/DL Albumin/Globulin Ratio 1.2RATIO 1.1RATIO Chemistry Specimen Hemolysis 27 < 15 Adenovirus (PCR) Negative Bordetella parapertussis DNA (PCR) Negative Chlamydia pneumoniae DNA (PCR) Negative Coronavirus Type OC43 (PCR) Negative Coronavirus Type HKU1 (PCR) Negative Coronavirus Type 229E (PCR) Negative Coronavirus Type NL63 (PCR) Negative Human Metapneumovirus (PCR) Negative Influenza Virus Type A (PCR) Negative Influenza Virus Type B (PCR) Negative Mycoplasma pneumoniae (PCR) Negative Parainfluenza Type 1 (PCR) Negative Parainfluenza Type 2 (PCR) Negative Parainfluenza Type 3 (PCR) Negative Parainfluenza Type 4 (PCR) Negative Respiratory Syncytial Virus (PCR) Negative Enterovirus/Rhinovirus (PCR) Negative Laboratory Tests 01/21/17 05:00 Laboratory Tests 01/21/17 05:00 Medications Current Medications Aspirin (Ecotrin) 81 mg O ONCE PO Last administered on 01/18/17 18:45; Start 01/18/17 at 15:45; Stop 01/18/17 at 15:46; Status DC Enoxaparin Sodium (Lovenox) 40 mg DAILY SQ Last administered on 01/19/17 09:13 ; Start 01/19/17 at 09:00; Stop 01/19/17 at 13:46; Status DC Albuterol/ Ipratropium (Duoneb) 3 ml Q2H PRN AEROSOL ; Start 01/18/17 at 17:15 Acetaminophen (Tylenol Arthritis) 1,300 mg DAILY PRN PO PAIN; Start 01/18/17 at 17:15; Stop 01/18/17 at 18:37; Status DC Salmeterol Xinafoate/ Fluticasone (Advair 250-50 Diskus) 1 puff DAILY ORAL INH Last administered on 01/21/17 09:14; Start 01/19/17 at 09:00 Levothyroxine Sodium (Synthroid) 50 mcg ACB PO Last administered on 01/21/17 06:02; Start 01/19/17 at 06:30 Aspirin (ASA) 81 mg DAILY PO Last administered on 01/19/17 09:13; Start at 09:00; Stop 01/19/17 at 15:49; Status DC Lisinopril (Prinivil) 20 mg DAILY PO Last administered on 01/21/17 08:11; Start 01/19/17 at 09:00 Miscellaneous Medication (May use PRN orders) PRN PRN MC ; Start 01/18/17 at 18:30 Magnesium Hydroxide (Mom) 30 ml DAILY PRN PO CONSTIPATION; Start 01/18/17 at 18 :30 Bisacodyl (Dulcolax) 10 mg DAILY PRN RECTALLY CONSTIPATION; Start 01/18/17 at 18:30 Al Hydroxide/Mg Hydroxide (Maalox) 30 ml Q3H PRN PO INDIGESTION; Start at 18:30 Acetaminophen (Tylenol Regular Strength) 1-2 TABS PO Q5H PRN PO DISCOMFORT; Start 01/18/17 at 18:30 Nitroglycerin (Nitrostat) 0.4 mg Q5M PRN SL CHEST PAIN; Start 01/18/17 at 18:30 Guaifenesin/ Dextromethorphan (Mucinex Dm 600/ 30 Mg Tablet) 1 tab Q12HR PO Last administered on 01/21/17 08:11; Start 01/18/17 at 21:00 Acetaminophen/ Codeine Phosphate (Tylenol #3) 1 tab Q6H PRN PO PAIN Last administered on 01/18/17 22:52; Start 01/18/17 at 23:00; Stop 01/19/17 at 14:16 ; Status DC Iohexol 1 bottle 1 bottle STK-MED ONCE .ROUTE ; Start 01/19/17 at 11:20; Stop at 11:21; Status DC Sodium Chloride (NS) 100 ml @ As Directed STK-MED ONCE .ROUTE ; Start 01/19/17 at 11:20; Stop 01/19/17 at 11:21; Status DC Sodium Chloride (Iv Flush) 10 ml STK-MED ONCE .ROUTE ; Start 01/19/17 at 11:20; Stop 01/19/17 at 11:21; Status DC Methylprednisolone Sodium Succinate (Solu-Medrol) 125 mg O ONCE IV Last administered on 01/19/17 11:54; Start 01/19/17 at 11:30; Stop 01/19/17 at 11:37 ; Status DC Rivaroxaban (Xarelto) 15 mg BIDWM PO Last administered on 01/21/17 08:12; Start 01/19/17 at 14:00; Stop 02/10/17 at 17:31 Acetaminophen/ Hydrocodone Bitart ([place] 5/325) 1 tab Q5H PRN PO PAIN Last administered on 01/21/17 08:11; Start 01/19/17 at 14:00 Acetazolamide (Diamox) 500 mg O ONCE PO Last administered on 01/20/17 15:24; Start 01/20/17 at 15:00; Stop 01/20/17 at 15:01; Status DC Furosemide (Lasix) 40 mg DAILY IV Last administered on 01/21/17 08:12; Start 01/21/17 at 09:00 Diphenhydramine HCl (Benadryl) 50 mg Q6H PRN PO ITCH Last administered on 06:28; Start 01/21/17 at 06:30 Potassium Chloride (Kdur) 20 meq O ONCE PO ; Start 01/21/17 at 12:30; Stop at 12:31 Radiology DATE OF EXAM: 01/21/17 ORDERING DOCTOR: LIZBETH SHORE MD TYPE OF EXAM: CHEST, PA & LATERAL REASON FOR EXAM: F/U pulmonary edema INDICATION: ITS.REASON: F/U pulmonary edema PROCEDURE: CHEST 2-VIEWS UPRIGHT (PA \T\ LAT) Encounter: Initial COMPARISON: January 18, 2017 FINDINGS: Prominent interstitial markings are again noted without significant change. Increasing small bilateral pleural effusions. No pneumothorax. Cardiac silhouette remains enlarged. Mediastinal contours are stable. Pulmonary vascularity appears stable. Impression: Slight increase in small pleural effusions. Assessment & Plan Problems: (1) Pulmonary embolism Status: Acute Qualifiers: Pulmonary embolism type: other Chronicity: acute Acute cor pulmonale presence: without acute cor pulmonale Qualified Codes: I26.99 - Other pulmonary embolism without acute cor pulmonale Assessment & Plan: Xarelto 15mg BID X 21days, then 20mg daily (2) Elevated troponin Status: Acute Assessment & Plan: 1) 0.144. trend serial troponin. EKG without ischemic changes. (3) Hypoxia Status: Acute Assessment & Plan: reported in the 70s at immediate care (4) CAD (coronary artery disease) Status: Chronic Assessment & Plan: reports last heart cath 10 years ago (5) Mild aortic stenosis Status: Chronic Assessment & Plan: Obtain echo (6) Carotid artery bruit Status: Chronic Assessment & Plan: obtain carotid doppler (7) Hypertension Status: Chronic Assessment & Plan: Poor control in ED. Takes Lisinopril and Triamterene/HCTZ at home (8) Obese Status: Chronic Qualifiers: Obesity type: due to excess calories Obesity severity: morbid Qualified Codes: E66.01 - Morbid (severe) obesity due to excess calories Plan/Intensity of Service 01/19/16 Trend serial troponin levels. Obtain Echo due to Mild and Carotid doppler due to Left bruit heard. Needs better BP control as well. 01/19/17 Troponin trending down. Carotids without significant stenosis. PE on CTA: Xarelto 15mg BID X 21days, then 20mg daily for 3 months for PE, DC aspirin. 01/20/17 Decrease Lasix to Daily 01/21/17 Change Lasix to PO NEELAM CHACKO MD 01/25/17 1638: Assessment & Plan Plan/Intensity of Service After examining the patient I agree with the above assessment. I am involved in the formulation of the patient's plan of care. JANETT MCADAMS APRN Jan 21, 2017 12:01 NEELAM CHACKO MD Jan 25, 2017 16:38
[2017-01-21] MEDS: DiphenhydrAMINE 25 MG CAPSULE PO SCH (21:52)
--- NOTE | 2017-01-21 23:34 | NUR ---
status Pt A/O x3, V/S stable on 3.5L. Pt rating pain 6-7/10, PRN norco given 2xs and pt stating it is helping pain. Pt ambulating well with standby and using walker. Urine output good for shift, BM today. Pt eating well, anxiety level down, appeared more comfortable today. SCDs bothering her legs and has wanted them off all day.
[2017-01-22] VITALS (10 sets, daily range): BP systolic 113–142; BP diastolic 61–69; PULSE 67–89; RESP 17–24; TEMP 97.8–98.5; O2SAT 90–94
[2017-01-22 05:22] LABS: BASOPHILS # (AUTO) 0.1 T/MM3 (0-0.2); BASOPHILS % (AUTO) 0.4 % (0-2); EOSINOPHILS # (AUTO) 0.6 T/MM3 (0-0.5); EOSINOPHILS % (AUTO) 4.7 % (0-4); HGB - HEMOGLOBIN 15.7 GM/DL (12-16); IMMATURE GRANULOCYTE # (AUTO) 0.02 T/MM3 (0.00-0.03); IMMATURE GRANULOCYTE % (AUTO) 0.2 % (0.0-0.5); LYMPHOCYTES # (AUTO) 2.5 T/MM3 (1-4.8); LYMPHOCYTES % (AUTO) 21.1 % (23-45); MEAN CORPUSCULAR HGB 30.1 UUG (26-34); MEAN CORPUSCULAR HGB CONC(MCHC 29.6 GM/DL (31-37); MEAN CORPUSCULAR VOLUME 101.5 UM3 (80-100); MEAN PLATELET VOLUME 11.1 UM3 (9.4-12.4); MONOCYTES % (AUTO) 8.7 % (0-9.0); NEUTROPHILS #(AUTO)-ABSOLUTE 7.8 T/MM3 (1.8-7.7); NEUTROPHILS % (AUTO) 64.9 % (33-66); RED BLOOD COUNT 5.22 M/MM3 (4.00-5.20)
--- NOTE | 2017-01-22 06:28 | NUR ---
SHIFT SUMMARY PT ALERT ORIENTED X3. PT WALKS WITH WALKER AND ONE ASSIST. PT DROWSY FOR MOST OF SHIFT HAD PRN'S PRIOR TO THIS RN SHIFT. PT THROUGHOUT NIGHT DENIED NEEDS, REFUSED ASSISTANCE TO REPOSITION IN BED OR ASSISTANCE TO RESTROOM. PT DENIED NEED FOR MEDICATIONS OR REPOSITION FOR COMFORT. PT ON 3.5L NC OXYGEN. PT REFUSED TO WEAR SCD'S DUE TO PAIN IT CAUSES HER LEGS.
--- NOTE | 2017-01-22 06:56 | NUR ---
REPORT HANDOFF REPORT TO [facility].
[2017-01-22] MEDS: ALBUTEROL/IPRATROPIUM INHAL. 2.5mg-0.5mg/3ml Neb. AEROSOL SCH ×4 (07:09→20:01)
[2017-01-22] MEDS: LEVOTHYROXINE 50 MCG TABLET PO SCH (07:20)
[2017-01-22 08:15] LABS: ANION GAP 9 MEQ/L (5-15); BUN/CREATININE RATIO 38 RATIO (6-26); CALCIUM 9.1 MG/DL (8.4-10.2); CHLORIDE 100 MEQ/L (98-107); CO2 - CARBON DIOXIDE 36 MEQ/L (22-30); CREATININE 0.8 MG/DL (0.7-1.2); GLOMERULAR FILTRATION RATE 70; GLUCOSE 127 MG/DL (65-110); MAGNESIUM 1.9 MG/DL (1.6-2.3); POTASSIUM 4.3 MEQ/L (3.6-5); SODIUM 145 MEQ/L (134-144)
[2017-01-22] MEDS: FLUTICASONE/SALMETEROL 250/50 DISK INHALER ORAL INH SCH (08:32)
[2017-01-22] MEDS: LISINOPRIL 20 MG TABLET PO SCH (09:30)
[2017-01-22] MEDS: RIVAROXABAN 15 MG TABLET PO SCH ×2 (09:30→17:41)
[2017-01-22] MEDS: FUROSEMIDE 40 MG TABLET PO SCH (09:30)
[2017-01-22] MEDS: GUAIFENESIN DM 600mg/30mg TABLET PO SCH ×2 (09:30→21:45)
[2017-01-22] MEDS ORDERED: acetaZOLAMIDE 250 MG TABLET PO ONE (09:45)
--- NOTE | 2017-01-22 10:00 | NUR ---
status Pt very tired and hard to motivate this morning. Did alert dr Ayers. Pt up at 0930 after sleeping hard most of night, no PRN pain meds given through night R/T sleep. Pt very sore with chronic pain. PRN pain meds given, not helping totally, PRN tylenol given and pt able to wait til next PRN pain meds dose.
[2017-01-22] MEDS: HYDROCODONE/APAP 5 mg/325 mg TABLET PO PRN ×3 (10:02→21:04)
--- NOTE | 2017-01-22 11:28 | NUR ---
REN[facility]E CM VISITED PT AND FAMILY. PT PLANS TO RETURN HOME AT TIME OF D/C FROM [facility] [place]. PT HAS HOME OXYGEN SUPPLIED FROM [employer]. PT SPOUSE STATES THAT HE DOES HAVE A HOME OXYGEN TANK TO BRING UP WHEN IT IS TIME FOR PT TO RETURN HOME. PT IS AWARE TO CONTACT CM IF NEEDS [facility].
[2017-01-22] MEDS: ACETAMINOPHEN 325 MG TABLET PO PRN (12:20)
--- NOTE | 2017-01-22 12:41 | PNPDOC ---
Subjective Date DATE: 01/22/17 TIME: 12:33 Subjective F/U: Acute respiratory failure with hypoxia, Pulm edema, CHF, PE Sleepy this morning. Slept soundly last night (but didn't waken for her chronic pain medications, but more still and uncomfortable this morning). Rash better - not itchy or needing further Benadryl. Breathing feels slightly better - less SOA. No cough, sputum or pain with breathing. On 3.5L to have sats in low 90s. Not having chest pressure or pain. Denies nausea or ab pain. Strength decreased. Objective Vital Signs Vital signs Vital Signs Date Time Temp Pulse Resp B/P Pulse Ox O2 Delivery O2 Flow Rate FiO2 01/22/17 11:55 72 01/22/17 11:55 16 93 01/22/17 07:37 98.5 142/69 Nasal Cannula 3.50 Telemetry Rhythm: Sinus Rhythm Height (Feet): 5 Height (Inches): 6.00 Weight (Kilograms): 118.100 General General Appearance: Alert, Obese, Well Nourished, Well Developed, Mild Distress , Other (Sleepy. Commnunicates well. ), Looks Stated Age Eyes (Brief) Eyes: FOUND: EOMI, PERRL, NOT FOUND: scleral icterus ENMT (Brief) ENMT: FOUND: hearing intact, mucosa moist Neck (Brief) Neck: FOUND: midline, NOT FOUND: nuchal rigidity, spasm Respiratory (Brief) Respiratory: FOUND: equal bilaterally, other (No respirartory distress with O2. ), NOT FOUND: clear all gonzalez (Decreased bilaterally. Little air movements. Scattered crackles. ), rales, wheezes Cardiovascular (Brief) Cardiac: FOUND: regular rate, regular rhythm Abdomen (Brief) Abdominal: FOUND: BS normo active x4, soft, NOT FOUND: distended, tender Extremities (Brief) Extremity : Side: Bilateral Extremity: leg Extremity Finding: FOUND: edema (Trace ) Musculoskeletal (Brief) Musculoskeletal: FOUND: extremities move equally, NOT FOUND: deformity, spasm Integumentary (Brief) Integumentary: FOUND: dry, warm Neurologic (Brief) Neurological: FOUND: cranial 2-12 intact, motor (Intact ) Psychiatric (Brief) Psychiatric: FOUND: alert, attentive, normal affect (But appears tired ), oriented Laboratory Laboratory Laboratory Tests 01/21/17 05:00 01/22/17 07:40 Laboratory Tests 01/21/17 05:00 01/22/17 04:46 Assessment & Plan Problems: (1) Acute respiratory failure with hypoxia Status: Acute (2) Acute exacerbation of CHF (congestive heart failure) Status: Acute Qualifiers: Congestive heart failure type: diastolic Qualified Codes: I50.33 - Acute on chronic diastolic (congestive) heart failure Assessment & Plan: ECHO with normal EF (3) Pulmonary embolism Status: Acute Qualifiers: Pulmonary embolism type: other Chronicity: acute Acute cor pulmonale presence: without acute cor pulmonale Qualified Codes: I26.99 - Other pulmonary embolism without acute cor pulmonale (4) Pulmonary edema Status: Acute Qualifiers: Chronicity: acute Qualified Codes: J81.0 - Acute pulmonary edema (5) Elevated troponin Status: Acute Assessment & Plan: Secondary to PE (6) CAD (coronary artery disease) Status: Chronic (7) Hypertension Status: Chronic (8) Asthma Status: Chronic (9) Sleep apnea Status: Chronic Assessment & Plan: Uses O2 at night. (10) Hypothyroid Status: Chronic (11) Osteoarthritis Status: Chronic Qualifiers: Osteoarthritis location: multiple joints Osteoarthritis type: primary Qualified Codes: M15.0 - Primary generalized (osteo)arthritis (12) Elevated liver enzymes Status: Acute Assessment & Plan: POA (13) Obese Status: Chronic Qualifiers: Obesity type: due to excess calories Obesity severity: morbid Qualified Codes: E66.01 - Morbid (severe) obesity due to excess calories Assessment & Plan: BMI 43.2 on day of admission Plan/Intensity of Service Give 500mg Diamox this afternoon. Cardiology change Lasix to 40mg po as of this am. Continue Xarelto for treatment of PE. Continue with supplemental O2, wean as able - use lowest flow possible. Encourage IS/deep breathing. Suspect with need continuous O2 at time of discharge. Encourage continue activities. Continue work with therapy. Check UA due to leukocytosis. Recheck BMP in am due to diuretic use. Will check CBC in am due to Xarelto. Case discussed with CM and pt's . Time spent with pt care 35 minutes. DVT Prophylaxis: Xarelto Code Status Full Code Hospital Course Summary Disclaimer The hospital course summary below is not to be considered part of the above Progress Note. Hospital Course Summary 01/18/17: Admit, inpatient status. Attending: Dr. Ayers 1. Acute hypoxic respiratory failure, acute CHF exacerbation, elevated troponin * Trend troponin. Monitor rhythm on telemetry. Dr. Velasquez has been consulted. * Echocardiogram and carotid Doppler are pending. * Lasix 40 mg IV 1. Will discuss ongoing diuresis with Dr. Ayers. * DuoNeb every 6 hours. * Continue supplemental oxygen to maintain saturations. * Check lipid panel. Start daily aspirin - history of peptic ulcer disease, monitor closely. 2. Hypertension * Continue lisinopril * Hold Maxzide for now since we will give IV diuresis. 3. Hypothyroidism: Continue levothyroxine and check TSH 4. Asthma * Asthma exacerbation less likely * Continue Advair and DuoNeb's. 01/19 Doing about the same. Feels some SOA despite O2. Notes cough, worse with deep breathing. Not mobilizing sputum. Not sore in chest wall or hurting with breathing/cough. No nausea. Appetite decreased. No ab pain. No f//c. Back pain bothersome. CT PE protocol showing probable PE - Xarelto started by cardiology. Continue Lasix to help pulmonary edema - monitor creatinine, especially in light of CT contrast. Continue with supplemental O2. Encourage IS. [place] 5 to help pain. Consult PT/OT to help improve functional status. Recheck CMP in am due to elevated LFT and medication use. Check CBC in am to due to anticoagulants. 01/20 Feeling better-less washed out. Still notes unsteadiness when up. Worked with therapy today. Breathing improving, but still having cough and not able to maintain saturations without O2. No pain with breathing or chest pain. No nausea or ab pain. No stool. Creatinine stable at 0.9. CO2 increased to 39. Liver enzymes decreasing. With increasing CO2 did give Diamox 500mg x2, 6 hours apart. Cardiology decreased Lasix to 40mg IV daily. Continue Xarelto for treatment of PE. Continue with supplemental O2, decreasing as able. Continue IS and deep breathing. PT/OT helping to increase functional abilities. Recheck CMP in am due to diuretic use and elevated liver enzymes. Will check CBC in am due to Xarelto. 01/21 Had rash to back this morning-reports raised welts. Very itchy. Has subsided. Breathing doing fair-still notes SOA and some cough. Little congestion, no sputum. No pain with breathing. Coughs with deep breath. Requiring O2 at 3.5L to maintain saturations. Appetite decreased. No nausea or ab pain. Urinating well. Is ambulating in halls with assistance. Give 500mg Diamox this afternoon. Continue Lasix 40mg IV daily. Potassium decreased - 20mEq KCl given at noon. Mg normal. Continue Xarelto for treatment of PE. Continue with supplemental O2, decreasing as able. Continue breathing exercises. Encourage continue activities. Continue work with therapy. Monitor for recurrence of rash. Recheck BMP in am due to diuretic use. Will check CBC in am due to Xarelto. Pt wonders when she can return to work - uncertain at this time, but told her return next week is not possible. 01/22 Sleepy this morning. Slept soundly last night (but didn't waken for her chronic pain medications, but more still and uncomfortable this morning). Rash better - not itchy or needing further Benadryl. Breathing feels slightly better - less SOA. No cough, sputum or pain with breathing. On 3.5L to have sats in low 90s. Not having chest pressure or pain. Denies nausea or ab pain. Strength decreased. Creatinine stable at 0.8. Potassium improved. Give 500mg Diamox this afternoon. Cardiology change Lasix to 40mg po as of this am. Continue Xarelto for treatment of PE. Continue with supplemental O2, wean as able - use lowest flow possible. Encourage IS/deep breathing. Suspect with need continuous O2 at time of discharge. Encourage continue activities. Continue work with therapy. Check UA due to leukocytosis. Recheck BMP in am due to diuretic use. Will check CBC in am due to Xarelto. LIZBETH AYERS MD Jan 22, 2017 12:36
--- NOTE | 2017-01-22 13:55 | PNPDOC ---
JANETT MCADAMS [employer] 01/22/17 1348: Subjective Date DATE: 01/22/17 TIME: 13:24 Subjective Dot is sleeping in her recliner, still has diffuse red rash and cheeks are flushed. She has no cardiac complaints. Objective Vital Signs Vital signs Vital Signs 01/22/17 01/22/17 01/22/17 01/22/17 07:09 07:09 07:18 07:37 Temp 98.5 Pulse 88 82 89 Resp 16 17 B/P 142/69 Pulse Ox 93 94 O2 Delivery Nasal Cannula O2 Flow Rate 3.50 01/22/17 01/22/17 01/22/17 08:35 11:55 11:55 Pulse 84 72 Resp 16 Pulse Ox 93 Telemetry Rhythm: Sinus Rhythm Height (Feet): 5 Height (Inches): 6.00 Weight (Kilograms): 118.100 General Alert, Orientated x 3, Cooperative ENMT (Brief) mucosa moist Neck (Brief) NOT FOUND: JVD, carotid bruits Respiratory (Brief) clear all gonzalez, equal bilaterally (diminished bases) Cardiovascular (Brief) pedal edema, regular rate, regular rhythm, NOT FOUND: click, gallop, murmur, rub Abdomen (Brief) BS normo active x4, soft, NOT FOUND: tender Integumentary (Brief) dry, pink, rash, warm Psychiatric (Brief) alert, attentive, oriented Laboratory Laboratory Laboratory Tests Test 01/21/17 05:00 01/22/17 04:46 01/22/17 07:40 White Blood Count 12.4T/MM3 12.0T/MM3 Red Blood Count 4.98M/MM3 5.22M/MM3 Hemoglobin 15.2GM/DL 15.7GM/DL Hematocrit 50.9% 53.0% Mean Corpuscular Volume 102.2UM3 101.5UM3 Mean Corpuscular Hemoglobin 30.5UUG 30.1UUG Mean Corpuscular Hemoglobin Concent 29.9GM/DL 29.6GM/DL RDW Standard Deviation 59.5FL 60.2FL Platelet Count 305T/MM3 275T/MM3 Mean Platelet Volume 10.9UM3 11.1UM3 Immature Granulocyte % (Auto) 0.2% 0.2% Neutrophils (%) (Auto) 70.9% 64.9% Lymphocytes (%) (Auto) 18.9% 21.1% Monocytes (%) (Auto) 8.4% 8.7% Eosinophils (%) (Auto) 1.4% 4.7% Basophils (%) (Auto) 0.2% 0.4% Absolute Immature Granulocyte (auto 0.02T/MM3 0.02T/MM3 Absolute Neutrophils (auto) 8.8T/MM3 7.8T/MM3 Absolute Lymphocytes (auto) 2.4T/MM3 2.5T/MM3 Absolute Monocytes (auto) 1.0T/MM3 1.0T/MM3 Absolute Eosinophils (auto) 0.2T/MM3 0.6T/MM3 Absolute Basophils (auto) 0.0T/MM3 0.1T/MM3 Turbidity < 20 < 20 Sodium Level 147MEQ/L 145MEQ/L Potassium Level 3.5MEQ/L 4.3MEQ/L Chloride Level 98MEQ/L 100MEQ/L Carbon Dioxide Level 38MEQ/L 36MEQ/L Anion Gap 11MEQ/L 9MEQ/L Blood Urea Nitrogen 25.0MG/DL 30.0MG/DL Creatinine 0.8MG/DL 0.8MG/DL Glomerular Filtration Rate Calc 70 70 BUN/Creatinine Ratio 31RATIO 38RATIO Glucose Level 111MG/DL 127MG/DL Calculated Osmolality 287MOSM/KG 287MOSM/KG Calcium Level 8.9MG/DL 9.1MG/DL Magnesium Level 2.1MG/DL 1.9MG/DL Total Bilirubin 0.90MG/DL Icterus Index < 2 < 2 Aspartate Amino Transf (AST/SGOT) 32U/L Alanine Aminotransferase (ALT/SGPT) 46U/L Alkaline Phosphatase 86U/L Total Protein 6.6G/DL Albumin 3.5G/DL Globulin 3.1G/DL Albumin/Globulin Ratio 1.1RATIO Chemistry Specimen Hemolysis < 15 < 15 Laboratory Tests 01/22/17 07:40 Laboratory Tests 01/22/17 04:46 Medications Current Medications Aspirin (Ecotrin) 81 mg O ONCE PO Last administered on 01/18/17 18:45; Start 01/18/17 at 15:45; Stop 01/18/17 at 15:46; Status DC Enoxaparin Sodium (Lovenox) 40 mg DAILY SQ Last administered on 01/19/17 09:13 ; Start 01/19/17 at 09:00; Stop 01/19/17 at 13:46; Status DC Albuterol/ Ipratropium (Duoneb) 3 ml Q2H PRN AEROSOL ; Start 01/18/17 at 17:15 Acetaminophen (Tylenol Arthritis) 1,300 mg DAILY PRN PO PAIN; Start 01/18/17 at 17:15; Stop 01/18/17 at 18:37; Status DC Salmeterol Xinafoate/ Fluticasone (Advair 250-50 Diskus) 1 puff DAILY ORAL INH Last administered on 01/22/17 08:32; Start 01/19/17 at 09:00 Levothyroxine Sodium (Synthroid) 50 mcg ACB PO Last administered on 01/22/17 07:20; Start 01/19/17 at 06:30 Aspirin (ASA) 81 mg DAILY PO Last administered on 01/19/17 09:13; Start at 09:00; Stop 01/19/17 at 15:49; Status DC Lisinopril (Prinivil) 20 mg DAILY PO Last administered on 01/22/17 09:30; Start 01/19/17 at 09:00 Miscellaneous Medication (May use PRN orders) PRN PRN MC ; Start 01/18/17 at 18:30 Magnesium Hydroxide (Mom) 30 ml DAILY PRN PO CONSTIPATION; Start 01/18/17 at 18 :30 Bisacodyl (Dulcolax) 10 mg DAILY PRN RECTALLY CONSTIPATION; Start 01/18/17 at 18:30 Al Hydroxide/Mg Hydroxide (Maalox) 30 ml Q3H PRN PO INDIGESTION; Start at 18:30 Acetaminophen (Tylenol Regular Strength) 1-2 TABS PO Q5H PRN PO DISCOMFORT Last administered on 01/22/17 12:20; Start 01/18/17 at 18:30 Nitroglycerin (Nitrostat) 0.4 mg Q5M PRN SL CHEST PAIN; Start 01/18/17 at 18:30 Guaifenesin/ Dextromethorphan (Mucinex Dm 600/ 30 Mg Tablet) 1 tab Q12HR PO Last administered on 01/22/17 09:30; Start 01/18/17 at 21:00 Acetaminophen/ Codeine Phosphate (Tylenol #3) 1 tab Q6H PRN PO PAIN Last administered on 01/18/17 22:52; Start 01/18/17 at 23:00; Stop 01/19/17 at 14:16 ; Status DC Iohexol 1 bottle 1 bottle STK-MED ONCE .ROUTE ; Start 01/19/17 at 11:20; Stop at 11:21; Status DC Sodium Chloride (NS) 100 ml @ As Directed STK-MED ONCE .ROUTE ; Start 01/19/17 at 11:20; Stop 01/19/17 at 11:21; Status DC Sodium Chloride (Iv Flush) 10 ml STK-MED ONCE .ROUTE ; Start 01/19/17 at 11:20; Stop 01/19/17 at 11:21; Status DC Methylprednisolone Sodium Succinate (Solu-Medrol) 125 mg O ONCE IV Last administered on 01/19/17 11:54; Start 01/19/17 at 11:30; Stop 01/19/17 at 11:37 ; Status DC Rivaroxaban (Xarelto) 15 mg BIDWM PO Last administered on 01/22/17 09:30; Start 01/19/17 at 14:00; Stop 02/10/17 at 17:31 Acetaminophen/ Hydrocodone Bitart ([place] 5/325) 1 tab Q5H PRN PO PAIN Last administered on 01/22/17 10:02; Start 01/19/17 at 14:00 Diphenhydramine HCl (Benadryl) 50 mg Q6H PRN PO ITCH Last administered on 06:28; Start 01/21/17 at 06:30 Potassium Chloride (Kdur) 20 meq O ONCE PO Last administered on 01/21/17 12: 22; Start 01/21/17 at 12:30; Stop 01/21/17 at 12:31; Status DC Furosemide (Lasix) 40 mg DAILY PO Last administered on 01/22/17 09:30; Start 01/22/17 at 09:00 Acetazolamide (Diamox) 500 mg O ONCE PO Last administered on 01/22/17 12:16; Start 01/22/17 at 09:45; Stop 01/22/17 at 12:18; Status DC Assessment & Plan Problems: (1) Pulmonary embolism Status: Acute Qualifiers: Pulmonary embolism type: other Chronicity: acute Acute cor pulmonale presence: without acute cor pulmonale Qualified Codes: I26.99 - Other pulmonary embolism without acute cor pulmonale Assessment & Plan: Xarelto 15mg BID X 21days, then 20mg daily (2) Elevated troponin Status: Acute Assessment & Plan: 1) 0.144. trend serial troponin. EKG without ischemic changes. (3) Hypoxia Status: Acute Assessment & Plan: reported in the 70s at immediate care (4) CAD (coronary artery disease) Status: Chronic Assessment & Plan: reports last heart cath 10 years ago (5) Mild aortic stenosis Status: Chronic Assessment & Plan: Obtain echo (6) Carotid artery bruit Status: Chronic Assessment & Plan: obtain carotid doppler (7) Hypertension Status: Chronic Assessment & Plan: Poor control in ED. Takes Lisinopril and Triamterene/HCTZ at home (8) Obese Status: Chronic Qualifiers: Obesity type: due to excess calories Obesity severity: morbid Qualified Codes: E66.01 - Morbid (severe) obesity due to excess calories Plan/Intensity of Service 01/19/16 Trend serial troponin levels. Obtain Echo due to Mild and Carotid doppler due to Left bruit heard. Needs better BP control as well. 01/19/17 Troponin trending down. Carotids without significant stenosis. PE on CTA: Xarelto 15mg BID X 21days, then 20mg daily for 3 months for PE, DC aspirin. 01/20/17 Decrease Lasix to Daily 01/21/17 Change Lasix to PO 01/22/17 Drowsy today from Benadryl and pain medicine. no change in plan from cardiology. NEELAM CHACKO MD 01/29/17 1328: Assessment & Plan Plan/Intensity of Service After examining the patient I agree with the above assessment. I am involved in the formulation of the patient's plan of care. JANETT MCADAMS APRN Jan 22, 2017 13:48 NEELAM CHACOK MD Jan 29, 2017 13:28
--- NOTE | 2017-01-22 14:21 | NUR ---
PT NOTE: Pt up in recliner and very lethargi. Pt keeps eyes closed and not very talkative. Whem asked if she would participate in therapy and she refused. Unable to [place] PT today. Any questions please call [phone]
--- NOTE | 2017-01-22 16:10 | NUR ---
O2 Able to wean O2. down to 2L from 3.5L. Will spot check to see if she is maintaining >90.
[2017-01-22 16:14] LABS: BLOOD, URINE NEGATIVE (NEGATIVE); COLOR,URINE YELLOW (YELLOW); LEUKOCYTE ESTERASE ,URINE 1+ (NEGATIVE); NITRITE,URINE NEGATIVE (NEGATIVE)
[2017-01-22 16:22] LABS: BACTERIA,URINE TRACE (NEGATIVE); RBC,URINE 0-1 /HPF (0-3)
[2017-01-22] MEDS: MORPHINE SULFATE 2 MG SYRINGE IV PRN (17:50)
--- NOTE | 2017-01-22 18:23 | NUR ---
Pain Pt having break thru pain, talked with dr Ayers and N. O. for MS 2mg. After 1hr pt pain much better, stated makes her real drowsy, talked about a range of 1-2 mg would be better when up.
--- NOTE | 2017-01-22 18:31 | NUR ---
status Pt A/O x3 with a little forgetfulness today. V/S stable on 2L, weaned from 3.5L. Pt ambulating slowly r/t chronic back pain, did sit up in chair for most of the day. Pain doing much better, 5-6/10 down from 8-9/10. Urine output good for shift, no BM. Eating and drinking well all day. Pt has denied any SOA while ambulating, no s/s of struggling with her breathing.
--- NOTE | 2017-01-22 18:57 | NUR ---
O2 Pt still maintaining 93% on 2L, even after MS and eating.
[2017-01-22] MEDS: DiphenhydrAMINE 25 MG CAPSULE PO SCH (21:45)
[2017-01-23] VITALS (7 sets, daily range): BP systolic 114–134; BP diastolic 53–86; PULSE 78–86; RESP 14–22; TEMP 97.5–99.1; O2SAT 90–95
[2017-01-23] MEDS: MORPHINE SULFATE 2 MG SYRINGE IV PRN ×2 (00:06→05:06)
--- NOTE | 2017-01-23 04:53 | NUR ---
SUMMARY PT ALERT AND ORIENTED. VSS, REPORTED PAIN HIGH 8/10, PRN NORCO GIVEN X1 DOSE, PRN MORPHINE GIVEN X2 DOSES, EFFECTIVE, PT IS ABLE TO REST WELL. PT IS HAVING INCREASED PROBLEMS AMBULATING TO AND FROM BATHROOM, BSC USED FOR THIS SHIFT. GOOD OUTPUT. VSS. O2 SAT WAS 90 BUT DIPPING TO 89 OXYGEN WAS INCREASED TO 2.5L O2 SATS INCREASED TO 92.
[2017-01-23 05:49] LABS: BASOPHILS % (AUTO) 0.3 % (0-2); EOSINOPHILS # (AUTO) 0.4 T/MM3 (0-0.5); EOSINOPHILS % (AUTO) 3.1 % (0-4); HCT - HEMATOCRIT 49.2 % (36-46); HGB - HEMOGLOBIN 14.5 GM/DL (12-16); IMMATURE GRANULOCYTE # (AUTO) 0.02 T/MM3 (0.00-0.03); IMMATURE GRANULOCYTE % (AUTO) 0.2 % (0.0-0.5); LYMPHOCYTES % (AUTO) 17.8 % (23-45); MEAN CORPUSCULAR HGB 30.1 UUG (26-34); MEAN CORPUSCULAR HGB CONC(MCHC 29.5 GM/DL (31-37); MEAN CORPUSCULAR VOLUME 102.1 UM3 (80-100); MEAN PLATELET VOLUME 11.4 UM3 (9.4-12.4); MONOCYTES # (AUTO) 1.1 T/MM3 (0-0.8); MONOCYTES % (AUTO) 9.8 % (0-9.0); NEUTROPHILS #(AUTO)-ABSOLUTE 7.9 T/MM3 (1.8-7.7); NEUTROPHILS % (AUTO) 68.8 % (33-66); RED BLOOD COUNT 4.82 M/MM3 (4.00-5.20); WBC - WHITE BLOOD COUNT 11.5 T/MM3 (4.5-11.0)
[2017-01-23 05:56] LABS: ALBUMIN 3.5 G/DL (3.5-5.0); ALBUMIN/GLOBULIN RATIO 1.1 RATIO (1.1-2.2); ALKALINE PHOSPHATASE 91 U/L (38-126); ALT (SGPT) 59 U/L (9-52); ANION GAP 10 MEQ/L (5-15); AST (SGOT) 59 U/L (14-36); BUN/CREATININE RATIO 43 RATIO (6-26); CALCIUM 8.8 MG/DL (8.4-10.2); CHLORIDE 97 MEQ/L (98-107); CO2 - CARBON DIOXIDE 34 MEQ/L (22-30); CREATININE 0.8 MG/DL (0.7-1.2); GLOMERULAR FILTRATION RATE 70; GLUCOSE 123 MG/DL (65-110); MAGNESIUM 2.2 MG/DL (1.6-2.3); POTASSIUM 3.9 MEQ/L (3.6-5); SODIUM 141 MEQ/L (134-144); TOTAL PROTEIN 6.8 G/DL (6.3-8.2)
[2017-01-23] MEDS: LEVOTHYROXINE 50 MCG TABLET PO SCH (06:20)
[2017-01-23] MEDS: ALBUTEROL/IPRATROPIUM INHAL. 2.5mg-0.5mg/3ml Neb. AEROSOL SCH ×5 (08:14→20:48)
[2017-01-23] MEDS: GUAIFENESIN DM 600mg/30mg TABLET PO SCH ×2 (09:17→21:45)
[2017-01-23] MEDS: RIVAROXABAN 15 MG TABLET PO SCH ×2 (09:17→17:45)
[2017-01-23] MEDS: FUROSEMIDE 40 MG TABLET PO SCH (09:17)
[2017-01-23] MEDS: HYDROCODONE/APAP 5 mg/325 mg TABLET PO PRN ×3 (09:18→21:46)
[2017-01-23] MEDS: LISINOPRIL 20 MG TABLET PO SCH (09:18)
--- NOTE | 2017-01-23 10:26 | NUR ---
status Talked with dr Hope about pt having another morning very lethargic. Pt having trouble answering questions, forgetful. Appears worse than yesterday morning. N.O. to get ABGs.
[2017-01-23] MEDS: FLUTICASONE/SALMETEROL 250/50 DISK INHALER ORAL INH SCH (14:13)
[2017-01-23] MEDS ORDERED: DiphenhydrAMINE 25 MG CAPSULE PO PRN (17:45)
--- NOTE | 2017-01-23 17:52 | PNPDOC ---
Subjective Date DATE: 01/23/17 TIME: 17:32 Subjective Lethargic, daughter at bedside reports that the patient was acting abnormally yesterday with increased lethargy, pulling her gown, and reported to be acting mad by her granddaughter. Today her daughter reports her is fidgety and jerking with minimal speech. Nursing reports the patient didn't eat breakfast but has been drinking some liquids. She was reported to have slept well and received a couple of doses of morphine (2 mg) for low back pain overnight. The patient denies difficulty breathing currently and denies nausea but is very vague and responses. Objective Vital Signs Vital signs Vital Signs Date Time Temp Pulse Resp B/P Pulse Ox O2 Delivery O2 Flow Rate FiO2 01/23/17 16:47 16 01/23/17 16:47 82 01/23/17 16:36 98.4 134/86 95 Nasal Cannula 3.50 I/O 1885/1200 weight down 3 kg from admission EXAM General-the patient is awake but very somnolent, she occasionally responds to questions with one or 2 words but generally looks "spacey", there's generalized psychomotor retardation HEENT-pupils equal and round, sclera anicteric, EOMI-patient has some difficulty following directions to test I muscle movements, oropharynx is clear and tongue midline Lungs-respirations are nonlabored, decreased airflow but breath sounds are clear Cardiac-regular rhythm, S1-S2, soft systolic murmur Abd-obese, soft, nontender, diminished bowel sounds Ext-+1 bilateral lower extremity edema Neuro-patient moves all extremities to command, no gross drift of the upper extremities but cannot follow command to close eyes and keep arms outstretched Psych-confused Telemetry Rhythm: Sinus Rhythm Height (Feet): 5 Height (Inches): 6.00 Weight (Kilograms): 118.200 Laboratory Laboratory Laboratory Tests 01/22/17 07:40 01/23/17 04:35 Bilirubin 1.8, AST 59, ALT 59, alkaline phosphatase 91 Laboratory Tests 01/22/17 04:46 01/23/17 04:35 7.30/72/56/35 on 2.5 L O2 by nasal cannula; PCO2 was 62 5 days ago Radiology Noncontrast CT head reviewed by myself-no acute pathology Portable chest x-ray also reviewed by myself demonstrating grossly clear lung gonzalez, small bilateral pleural effusions and decreased lung volumes. Assessment & Plan Problems: (1) Encephalopathy Status: Acute Assessment & Plan: Likely due to hypercarbia (2) Chronic respiratory failure with hypercapnia Assessment & Plan: Acute/chronic. Reported history of sleep apnea and home nocturnal oxygen use (3) Acute respiratory failure with hypoxia Status: Acute (4) Acute exacerbation of CHF (congestive heart failure) Status: Acute Qualifiers: Congestive heart failure type: diastolic Qualified Codes: I50.33 - Acute on chronic diastolic (congestive) heart failure Assessment & Plan: ECHO with normal EF (5) Pulmonary embolism Status: Acute Qualifiers: Pulmonary embolism type: other Chronicity: acute Acute cor pulmonale presence: without acute cor pulmonale Qualified Codes: I26.99 - Other pulmonary embolism without acute cor pulmonale (6) Pulmonary edema Status: Acute Qualifiers: Chronicity: acute Qualified Codes: J81.0 - Acute pulmonary edema (7) Elevated troponin Status: Resolved Assessment & Plan: Secondary to PE (8) CAD (coronary artery disease) Status: Chronic (9) Hypertension Status: Chronic (10) Asthma Status: Chronic (11) Sleep apnea Status: Chronic Assessment & Plan: Uses O2 at night. (12) Hypothyroid Status: Chronic (13) Osteoarthritis Status: Chronic Qualifiers: Osteoarthritis location: multiple joints Osteoarthritis type: primary Qualified Codes: M15.0 - Primary generalized (osteo)arthritis (14) Elevated liver enzymes Status: Acute Assessment & Plan: POA (15) Obese Status: Chronic Qualifiers: Obesity type: due to excess calories Obesity severity: morbid Qualified Codes: E66.01 - Morbid (severe) obesity due to excess calories Assessment Increased encephalopathy reported yesterday and today. Patient noted to have bicarbonate of 36 increasing to 39 2 days after admission prompting treatment with Diamox, suggests underlying hypercarbia. Blood gas confirmed earlier in the hospitalization and today's blood gas demonstrates worsening of hypercarbia with development of mild respiratory acidosis now. Morphine and [place] discontinued to avoid excessive sedation. BiPAP trial to be initiated this evening. Continue diuresis and anticoagulation. No indication of acute intracranial of the amount and neuro exam grossly nonfocal. Tylenol as needed for back pain, lidocaine patch added for use at night if additional medication necessary. Hypernatremia resolved, mild transaminitis with elevated bilirubin (previously demonstrated to be unconjugated) today but benign abdominal examination. Reassess tomorrow. Plan/Intensity of Service Head CT reviewed by myself, chest x-ray reviewed by myself, lengthy discussion with patient's family. Laboratory data reviewed. Discussed with nursing. Greater than 35 minutes spent in patient care. DVT Prophylaxis: Xarelto Code Status Full Code Hospital Course Summary Disclaimer The hospital course summary below is not to be considered part of the above Progress Note. Hospital Course Summary 01/18/17: Admit, inpatient status. Attending: Dr. Ayers 1. Acute hypoxic respiratory failure, acute CHF exacerbation, elevated troponin * Trend troponin. Monitor rhythm on telemetry. Dr. Velasquez has been consulted. * Echocardiogram and carotid Doppler are pending. * Lasix 40 mg IV 1. Will discuss ongoing diuresis with Dr. Ayers. * DuoNeb every 6 hours. * Continue supplemental oxygen to maintain saturations. * Check lipid panel. Start daily aspirin - history of peptic ulcer disease, monitor closely. 2. Hypertension * Continue lisinopril * Hold Maxzide for now since we will give IV diuresis. 3. Hypothyroidism: Continue levothyroxine and check TSH 4. Asthma * Asthma exacerbation less likely * Continue Advair and DuoNeb's. 01/19 Doing about the same. Feels some SOA despite O2. Notes cough, worse with deep breathing. Not mobilizing sputum. Not sore in chest wall or hurting with breathing/cough. No nausea. Appetite decreased. No ab pain. No f//c. Back pain bothersome. CT PE protocol showing probable PE - Xarelto started by cardiology. Continue Lasix to help pulmonary edema - monitor creatinine, especially in light of CT contrast. Continue with supplemental O2. Encourage IS. [place] 5 to help pain. Consult PT/OT to help improve functional status. Recheck CMP in am due to elevated LFT and medication use. Check CBC in am to due to anticoagulants. 01/20 Feeling better-less washed out. Still notes unsteadiness when up. Worked with therapy today. Breathing improving, but still having cough and not able to maintain saturations without O2. No pain with breathing or chest pain. No nausea or ab pain. No stool. Creatinine stable at 0.9. CO2 increased to 39. Liver enzymes decreasing. With increasing CO2 did give Diamox 500mg x2, 6 hours apart. Cardiology decreased Lasix to 40mg IV daily. Continue Xarelto for treatment of PE. Continue with supplemental O2, decreasing as able. Continue IS and deep breathing. PT/OT helping to increase functional abilities. Recheck CMP in am due to diuretic use and elevated liver enzymes. Will check CBC in am due to Xarelto. 01/21 Had rash to back this morning-reports raised welts. Very itchy. Has subsided. Breathing doing fair-still notes SOA and some cough. Little congestion, no sputum. No pain with breathing. Coughs with deep breath. Requiring O2 at 3.5L to maintain saturations. Appetite decreased. No nausea or ab pain. Urinating well. Is ambulating in halls with assistance. Give 500mg Diamox this afternoon. Continue Lasix 40mg IV daily. Potassium decreased - 20mEq KCl given at noon. Mg normal. Continue Xarelto for treatment of PE. Continue with supplemental O2, decreasing as able. Continue breathing exercises. Encourage continue activities. Continue work with therapy. Monitor for recurrence of rash. Recheck BMP in am due to diuretic use. Will check CBC in am due to Xarelto. Pt wonders when she can return to work - uncertain at this time, but told her return next week is not possible. 01/22 Sleepy this morning. Slept soundly last night (but didn't waken for her chronic pain medications, but more still and uncomfortable this morning). Rash better - not itchy or needing further Benadryl. Breathing feels slightly better - less SOA. No cough, sputum or pain with breathing. On 3.5L to have sats in low 90s. Not having chest pressure or pain. Denies nausea or ab pain. Strength decreased. Creatinine stable at 0.8. Potassium improved. Give 500mg Diamox this afternoon. Cardiology change Lasix to 40mg po as of this am. Continue Xarelto for treatment of PE. Continue with supplemental O2, wean as able - use lowest flow possible. Encourage IS/deep breathing. Suspect with need continuous O2 at time of discharge. Encourage continue activities. Continue work with therapy. Check UA due to leukocytosis. Recheck BMP in am due to diuretic use. Will check CBC in am due to Xarelto. 01/23/17 Increased encephalopathy reported yesterday and today. Patient noted to have bicarbonate of 36 increasing to 39 2 days after admission prompting treatment with Diamox, suggests underlying hypercarbia. Blood gas confirmed earlier in the hospitalization and today's blood gas demonstrates worsening of hypercarbia with development of mild respiratory acidosis now. Morphine and [place] discontinued to avoid excessive sedation. BiPAP trial to be initiated this evening. Continue diuresis and anticoagulation. No indication of acute intracranial of the amount and neuro exam grossly nonfocal. Tylenol as needed for back pain, lidocaine patch added for use at night if additional medication necessary. Hypernatremia resolved, mild transaminitis with elevated bilirubin (previously demonstrated to be unconjugated) today but benign abdominal examination. Reassess tomorrow. HANK LAWSON MD Jan 23, 2017 17:36
--- NOTE | 2017-01-23 18:03 | NUR ---
status Pt A/O x1, lethargic and having trouble answering questions. V/S stable on 3.5L, will be putting on bi-pap tonight. Pt eating with help from family. Pt needing 2x assist to get from bed to chair or BSC, not able to make it to the bathroom today. Pt remains cont of urine and bowel, good urine output but BM just gas today. Pt not able to rate her pain, struggling with answer, PRN pain meds given 2xs today with some relief.
--- NOTE | 2017-01-23 21:21 | DI ---
Indication: ITS.REASON: hypoxia PROCEDURE: CHEST 1 VIEW: Encounter: Initial Comparison: January 21, 2017 Findings: Small bilateral pleural effusions are similar with lower lobe opacities. Upper lung gonzalez are grossly clear. No pneumothorax. Heart size and mediastinal contours are stable. Pulmonary vascularity is mildly prominent but unchanged. Impression: Stable chest with small effusions and mild edema. .
--- NOTE | 2017-01-23 21:23 | DI ---
Indication: ITS.REASON: altered mental status, anticoagulated PROCEDURE: CT HEAD W/O CONTRAST: Encounter: Initial Comparison: None Technique: Axial CT images through the head were performed without contrast. Iterative Reconstruction dose reducing technique was utilized. FINDINGS: The ventricles are of normal size, shape, and contour for the patient's age. There are scattered areas of low attenuation in the white matter which most likely represent changes from chronic microvascular ischemia. The brainstem, cerebellum, and cerebral hemispheres otherwise have a normal morphology and CT attenuation. There is no evidence of midline displacement. No hemorrhage, signs of acute territorial stroke, mass effect, mass lesions, or edema is evident. The visualized portions of the skull base, midface, and calvarium demonstrate no abnormality. The paranasal sinuses are well aerated and free of significant disease. The tympanic and mastoid cavities appear normal. IMPRESSION: No acute intracranial abnormality or hemorrhage. There is a preliminary report by [facility]. .
[2017-01-24] VITALS (9 sets, daily range): BP systolic 121–147; BP diastolic 64–74; PULSE 70–84; RESP 17–18; TEMP 98.2–99; O2SAT 90–96
[2017-01-24] MEDS: HYDROCODONE/APAP 5 mg/325 mg TABLET PO PRN ×4 (04:15→19:38)
--- NOTE | 2017-01-24 04:30 | NUR ---
SUMMARY PT HAS BEEN LETHARGIC AND UNABLE TO ANSWER SIMPLE QUESTIONS TONIGHT. PT HOLLERS OUT IN PAIN BUT IS UNABLE TO RATE HER PAIN, PRN NORCO HAS BEEN GIVEN ORDERED. PT IS HAVING A HARD TIME STANDING AND WALKING TO THE BATHROOM, BSC IS BEING USED FOR TOILETING. IVL IN THE L FOREARM.
[2017-01-24 05:56] LABS: ALBUMIN 3.4 G/DL (3.5-5.0); ALBUMIN/GLOBULIN RATIO 1.1 RATIO (1.1-2.2); ALKALINE PHOSPHATASE 107 U/L (38-126); ALT (SGPT) 64 U/L (9-52); ANION GAP 9 MEQ/L (5-15); AST (SGOT) 52 U/L (14-36); BUN/CREATININE RATIO 43 RATIO (6-26); CALCIUM 9.2 MG/DL (8.4-10.2); CHLORIDE 99 MEQ/L (98-107); CO2 - CARBON DIOXIDE 32 MEQ/L (22-30); CREATININE 0.7 MG/DL (0.7-1.2); GLOMERULAR FILTRATION RATE 82; GLUCOSE 136 MG/DL (65-110); POTASSIUM 3.8 MEQ/L (3.6-5); SODIUM 140 MEQ/L (134-144); TOTAL PROTEIN 6.6 G/DL (6.3-8.2)
[2017-01-24] MEDS: LEVOTHYROXINE 50 MCG TABLET PO SCH (06:06)
[2017-01-24] MEDS: ALBUTEROL/IPRATROPIUM INHAL. 2.5mg-0.5mg/3ml Neb. AEROSOL SCH ×4 (07:01→19:51)
[2017-01-24] MEDS: GUAIFENESIN DM 600mg/30mg TABLET PO SCH ×2 (08:54→20:02)
[2017-01-24] MEDS: LIDOCAINE 5% PATCH TD PRN (08:55)
[2017-01-24] MEDS: FUROSEMIDE 40 MG TABLET PO SCH (08:55)
[2017-01-24] MEDS: LISINOPRIL 20 MG TABLET PO SCH (08:55)
[2017-01-24] MEDS: RIVAROXABAN 15 MG TABLET PO SCH ×2 (08:55→17:43)
[2017-01-24] MEDS: FLUTICASONE/SALMETEROL 250/50 DISK INHALER ORAL INH SCH (10:26)
--- NOTE | 2017-01-24 14:18 | PNPDOC ---
JOE QUINTANILLA V SHARIF 01/24/17 1414: Subjective Date DATE: 01/24/17 TIME: 14:03 Subjective Dot is seen this afternoon in follow-up. She is up in the chair with her daughter at the bedside. Daughter verbalizes that patient seems less encephalopathic today. However, not at her baseline mentation. 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 She is very sharp and active normally. Dot verbalizes that her thinking is not "clear". She denies feeling short of breath at rest. She denies having any chest pain or abdominal pain. Does complain of her chronic lower back and appears to be somewhat uncomfortable in the chair. Blood pressure 147/74. Objective Vital Signs Vital signs Vital Signs Date Time Temp Pulse Resp B/P Pulse Ox O2 Delivery O2 Flow Rate FiO2 01/24/17 08:00 98.2 84 18 147/74 92 Nasal Cannula 3.50 01/24/17 07:05 35 Telemetry Rhythm: Sinus Rhythm Height (Feet): 5 Height (Inches): 6.00 Weight (Kilograms): 118.000 General General Appearance: Alert, Orientated x 3, Cooperative, No Acute Distress Eyes (Brief) Eyes: FOUND: EOMI ENMT (Brief) ENMT: FOUND: mucosa moist, normal dentition, NOT FOUND: pharnyx erythema Neck (Brief) Neck: FOUND: midline, NOT FOUND: adenopathy, carotid bruits, tracheal deviation Respiratory (Brief) Respiratory: NOT FOUND: wheezes Comments Diminished bases bilateral Cardiovascular (Brief) Cardiac: FOUND: regular rate, regular rhythm, NOT FOUND: murmur, pedal edema Capillary Refill: <2 sec Abdomen (Brief) Abdominal: FOUND: BS normo active x4, soft, NOT FOUND: distended, tender Extremities (Brief) Extremity : Side: Bilateral Extremity Finding: FOUND: edema (Trace bilateral lower ext) Lymphatic (Brief) Lymphatic: NOT FOUND: adenopathy Musculoskeletal (Brief) Musculoskeletal: NOT FOUND: tenderness Integumentary (Brief) Integumentary: FOUND: dry, pink, warm Neurologic (Brief) Neurological: FOUND: cranial 2-12 intact Psychiatric (Brief) Psychiatric: FOUND: alert, attentive, normal affect, oriented Laboratory Laboratory Laboratory Tests 01/23/17 04:35 01/24/17 04:46 Laboratory Tests 01/23/17 04:35 Assessment & Plan Problems: (1) Encephalopathy Status: Acute Assessment & Plan: Likely due to hypercarbia (2) Chronic respiratory failure with hypercapnia Assessment & Plan: Acute/chronic. Reported history of sleep apnea and home nocturnal oxygen use (3) Acute respiratory failure with hypoxia Status: Acute (4) Acute exacerbation of CHF (congestive heart failure) Status: Acute Qualifiers: Congestive heart failure type: diastolic Qualified Codes: I50.33 - Acute on chronic diastolic (congestive) heart failure Assessment & Plan: ECHO with normal EF (5) Pulmonary embolism Status: Acute Qualifiers: Pulmonary embolism type: other Chronicity: acute Acute cor pulmonale presence: without acute cor pulmonale Qualified Codes: I26.99 - Other pulmonary embolism without acute cor pulmonale (6) Pulmonary edema Status: Acute Qualifiers: Chronicity: acute Qualified Codes: J81.0 - Acute pulmonary edema (7) Elevated troponin Status: Resolved Assessment & Plan: Secondary to PE (8) CAD (coronary artery disease) Status: Chronic (9) Hypertension Status: Chronic (10) Asthma Status: Chronic (11) Sleep apnea Status: Chronic Assessment & Plan: Uses O2 at night. (12) Hypothyroid Status: Chronic (13) Osteoarthritis Status: Chronic Qualifiers: Osteoarthritis location: multiple joints Osteoarthritis type: primary Qualified Codes: M15.0 - Primary generalized (osteo)arthritis (14) Elevated liver enzymes Status: Acute Assessment & Plan: POA (15) Obese Status: Chronic Qualifiers: Obesity type: due to excess calories Obesity severity: morbid Qualified Codes: E66.01 - Morbid (severe) obesity due to excess calories Plan/Intensity of Service 01/24/17 Currently on 3.5 liters of oxygen by nasal cannula. Utilized BiPAP overnight. ABG today has improved, pH up to 7.35, pCO2 decreased to 62, pO2 increased to 75 , bicarbonate slightly down at 34. Suspect that as CO2 continues to decrease encephalopathy. Will continue to improve. Continue on so for treatment of pulmonary emboli. She will continue on 50 milligrams twice a day until 02/10/17. Then, may change to 20 milligrams daily for ongoing anticoagulation. Continue with scheduled breathing treatments and Advair Diskus. Lidoderm patch and Cando as needed for chronic back pain Did discuss at great length with daughter regarding her concerns of discharge plan. She inquired about transition options such as IRU or skilled prior to discharge home independently. Will discuss patient plan further with Dr. Hope Code Status Full Code Hospital Course Summary Disclaimer The hospital course summary below is not to be considered part of the above Progress Note. Hospital Course Summary 01/18/17: Admit, inpatient status. Attending: Dr. Ayers 1. Acute hypoxic respiratory failure, acute CHF exacerbation, elevated troponin * Trend troponin. Monitor rhythm on telemetry. Dr. Velasquez has been consulted. * Echocardiogram and carotid Doppler are pending. * Lasix 40 mg IV 1. Will discuss ongoing diuresis with Dr. Ayers. * DuoNeb every 6 hours. * Continue supplemental oxygen to maintain saturations. * Check lipid panel. Start daily aspirin - history of peptic ulcer disease, monitor closely. 2. Hypertension * Continue lisinopril * Hold Maxzide for now since we will give IV diuresis. 3. Hypothyroidism: Continue levothyroxine and check TSH 4. Asthma * Asthma exacerbation less likely * Continue Advair and DuoNeb's. 01/19 Doing about the same. Feels some SOA despite O2. Notes cough, worse with deep breathing. Not mobilizing sputum. Not sore in chest wall or hurting with breathing/cough. No nausea. Appetite decreased. No ab pain. No f//c. Back pain bothersome. CT PE protocol showing probable PE - Xarelto started by cardiology. Continue Lasix to help pulmonary edema - monitor creatinine, especially in light of CT contrast. Continue with supplemental O2. Encourage IS. Cando 5 to help pain. Consult PT/OT to help improve functional status. Recheck CMP in am due to elevated LFT and medication use. Check CBC in am to due to anticoagulants. 01/20 Feeling better-less washed out. Still notes unsteadiness when up. Worked with therapy today. Breathing improving, but still having cough and not able to maintain saturations without O2. No pain with breathing or chest pain. No nausea or ab pain. No stool. Creatinine stable at 0.9. CO2 increased to 39. Liver enzymes decreasing. With increasing CO2 did give Diamox 500mg x2, 6 hours apart. Cardiology decreased Lasix to 40mg IV daily. Continue Xarelto for treatment of PE. Continue with supplemental O2, decreasing as able. Continue IS and deep breathing. PT/OT helping to increase functional abilities. Recheck CMP in am due to diuretic use and elevated liver enzymes. Will check CBC in am due to Xarelto. 01/21 Had rash to back this morning-reports raised welts. Very itchy. Has subsided. Breathing doing fair-still notes SOA and some cough. Little congestion, no sputum. No pain with breathing. Coughs with deep breath. Requiring O2 at 3.5L to maintain saturations. Appetite decreased. No nausea or ab pain. Urinating well. Is ambulating in halls with assistance. Give 500mg Diamox this afternoon. Continue Lasix 40mg IV daily. Potassium decreased - 20mEq KCl given at noon. Mg normal. Continue Xarelto for treatment of PE. Continue with supplemental O2, decreasing as able. Continue breathing exercises. Encourage continue activities. Continue work with therapy. Monitor for recurrence of rash. Recheck BMP in am due to diuretic use. Will check CBC in am due to Xarelto. Pt wonders when she can return to work - uncertain at this time, but told her return next week is not possible. 01/22 Sleepy this morning. Slept soundly last night (but didn't waken for her chronic pain medications, but more still and uncomfortable this morning). Rash better - not itchy or needing further Benadryl. Breathing feels slightly better - less SOA. No cough, sputum or pain with breathing. On 3.5L to have sats in low 90s. Not having chest pressure or pain. Denies nausea or ab pain. Strength decreased. Creatinine stable at 0.8. Potassium improved. Give 500mg Diamox this afternoon. Cardiology change Lasix to 40mg po as of this am. Continue Xarelto for treatment of PE. Continue with supplemental O2, wean as able - use lowest flow possible. Encourage IS/deep breathing. Suspect with need continuous O2 at time of discharge. Encourage continue activities. Continue work with therapy. Check UA due to leukocytosis. Recheck BMP in am due to diuretic use. Will check CBC in am due to Xarelto. 01/23/17 Increased encephalopathy reported yesterday and today. Patient noted to have bicarbonate of 36 increasing to 39 2 days after admission prompting treatment with Diamox, suggests underlying hypercarbia. Blood gas confirmed earlier in the hospitalization and today's blood gas demonstrates worsening of hypercarbia with development of mild respiratory acidosis now. Morphine and Cando discontinued to avoid excessive sedation. BiPAP trial to be initiated this evening. Continue diuresis and anticoagulation. No indication of acute intracranial of the amount and neuro exam grossly nonfocal. Tylenol as needed for back pain, lidocaine patch added for use at night if additional medication necessary. Hypernatremia resolved, mild transaminitis with elevated bilirubin (previously demonstrated to be unconjugated) today but benign abdominal examination. Reassess tomorrow. 01/24/17 Currently on 3.5 liters of oxygen by nasal cannula. Utilized BiPAP overnight. ABG today has improved, pH up to 7.35, pCO2 decreased to 62, pO2 increased to 75 , bicarbonate slightly down at 34. Suspect that as CO2 continues to decrease encephalopathy. Will continue to improve. Continue on so for treatment of pulmonary emboli. She will continue on 50 milligrams twice a day until 02/10/17. Then, may change to 20 milligrams daily for ongoing anticoagulation. Continue with scheduled breathing treatments and Advair Diskus. Lidoderm patch and Cando as needed for chronic back pain Did discuss at great length with daughter regarding her concerns of discharge plan. She inquired about transition options such as IRU or skilled prior to discharge home independently. Will discuss patient plan further with HANK Billingsley MD 01/24/17 3878: Assessment & Plan Assessment I have independently evaluated and examined this patient. I reviewed the chart, the patient's history, and the SENIOR C WEB DEVELOPER's documented findings as above. We discussed and formulated the assessment and plan as above with additions as below: Mrs. Gonzalez reports tolerating BiPAP overnight although she didn't think the mask was very comfortable. There is residual confusion although she is more alert and interactive today than yesterday. Daughter reports that she still has some word searching and speech is often slow and deliberate compared to baseline. Psychomotor retardation evident on examination. Respirations are nonlabored with good airflow, there are crackles third of the way up posteriorly on the left. Lower extremities are hypersensitive to palpation. Blood gas as noted, improving and likely near baseline. Continue BiPAP. We'll ask PT to re-evaluate tomorrow-patient unable to work with therapy due to confusion when initially seen. Agree with concern that patient will not be able to return home immediately at discharge. Bilirubin 2.2 today, previously shown to be unconjugated, suspect due to poor oral intake over the past couple of days while encephalopathic. Reassess liver enzymes and liver function tests in the morning. Plan/Intensity of Service Laboratory data reviewed, discussed with nursing and patient's daughter. JOE QUINTANILLA APRN Jan 24, 2017 14:14 HANK HOPE MD Jan 24, 2017 21:58
--- NOTE | 2017-01-24 18:33 | NUR ---
status Pt A/O x3, still having some confusion but better than day before. V/S stable on 3.5L, tolerated bipap all night. Pt ambulated better with 1x assist and walker to bathroom and back. Pt up to chair most of the day. Pt able to rate pain better, 7-9/10, PRN meds given with pt stating some relief. Eating and drinking well, no N/V noted. Urine output good for shift, 1 lg BM today and also last night.
[2017-01-25] VITALS (11 sets, daily range): BP systolic 131–142; BP diastolic 66–67; PULSE 83–85; RESP 20; TEMP 97.8–98.4; O2SAT 90–95
[2017-01-25 04:51] LABS: ALBUMIN 3.3 G/DL (3.5-5.0); ALKALINE PHOSPHATASE 99 U/L (38-126); ALT (SGPT) 49 U/L (9-52); ANION GAP 9 MEQ/L (5-15); AST (SGOT) 32 U/L (14-36); BUN/CREATININE RATIO 36 RATIO (6-26); CALCIUM 9.6 MG/DL (8.4-10.2); CHLORIDE 101 MEQ/L (98-107); CO2 - CARBON DIOXIDE 32 MEQ/L (22-30); CREATININE 0.7 MG/DL (0.7-1.2); GLOMERULAR FILTRATION RATE 82; GLUCOSE 128 MG/DL (65-110); POTASSIUM 3.9 MEQ/L (3.6-5); SODIUM 142 MEQ/L (134-144); TOTAL PROTEIN 6.5 G/DL (6.3-8.2)
--- NOTE | 2017-01-25 05:17 | NUR ---
bipap patient has refused multiple time to wear her bipap from RT and this nurse. she finally agreed to wear it, but that lasted approx 3 hours. after patient took off the bipap she was placed on continuous oximetry to monitor O2 sats. Sats drop periodically down to low 80s. I discussed these findings with the patient, but she again refused to wear the bipap. O2 is currently at 4l nc.
--- NOTE | 2017-01-25 05:19 | NUR ---
summary pt is a&o x3, but slow to respond. c/o back pain, prn norco given at shift change prior to being discontinued. lido patch was removed at shift change as well by Dinora THOMPSON. up x1-2 with gait belt and walker. large bm this shift, adequate urine output. no new concerns at this time.
[2017-01-25] MEDS: LEVOTHYROXINE 50 MCG TABLET PO SCH (05:45)
[2017-01-25] MEDS: FLUTICASONE/SALMETEROL 250/50 DISK INHALER ORAL INH SCH (07:07)
[2017-01-25] MEDS: ALBUTEROL/IPRATROPIUM INHAL. 2.5mg-0.5mg/3ml Neb. AEROSOL SCH ×4 (07:07→20:01)
[2017-01-25] MEDS: LIDOCAINE 5% PATCH TD PRN (07:54)
[2017-01-25] MEDS: FUROSEMIDE 40 MG TABLET PO SCH (07:55)
[2017-01-25] MEDS: LISINOPRIL 20 MG TABLET PO SCH (07:55)
[2017-01-25] MEDS: RIVAROXABAN 15 MG TABLET PO SCH ×2 (07:55→18:39)
[2017-01-25] MEDS: ACETAMINOPHEN 325 MG TABLET PO PRN ×2 (07:55→21:06)
[2017-01-25] MEDS: GUAIFENESIN DM 600mg/30mg TABLET PO SCH ×2 (07:55→21:06)
[2017-01-25] MEDS ORDERED: LIDOCAINE PATCH REMOVAL TOP PRN (12:00)
--- NOTE | 2017-01-25 13:26 | PNPDOC ---
JANETT MCADAMS BEVEL GEAR GENERATOR OPERATOR 01/25/17 1324: Subjective Date DATE: 01/25/17 TIME: 13:21 Subjective Dot is sitting on the bedside eating her lunch, her is at the bedside. She states her mentation is still "foggy" and believes the problem is her back pain. She still has red eruptions on her back, some of which are fluid filled. She states that they are not painful but very itchy. She denies chest pain, palpitations, dyspnea at rest or dizziness. Objective Vital Signs Vital signs Vital Signs 01/25/17 01/25/17 01/25/17 01/25/17 07:08 07:08 07:08 07:17 Pulse 79 77 Resp 18 18 Pulse Ox 92 01/25/17 01/25/17 01/25/17 01/25/17 07:33 08:00 08:10 08:10 Temp 97.8 Pulse 83 83 Resp 20 20 B/P 131/67 Pulse Ox 95 95 O2 Delivery Nasal Cannula Nasal Cannula Nasal Cannula O2 Flow Rate 4.00 2.50 3.00 01/25/17 01/25/17 01/25/17 01/25/17 09:10 09:10 10:49 10:49 Pulse 73 Resp 16 Pulse Ox 93 95 93 O2 Delivery Nasal Cannula Nasal Cannula O2 Flow Rate 1.50 2.50 01/25/17 10:58 Pulse 71 Telemetry Rhythm: Sinus Rhythm Height (Feet): 5 Height (Inches): 6.00 Weight (Kilograms): 116.600 General Alert, Orientated x 3, Cooperative ENMT (Brief) mucosa moist Neck (Brief) NOT FOUND: JVD, carotid bruits Respiratory (Brief) clear all gonzalez, equal bilaterally (diminished bases) Cardiovascular (Brief) pedal edema, regular rate, regular rhythm, NOT FOUND: click, gallop, murmur, rub Abdomen (Brief) BS normo active x4, soft Integumentary (Brief) dry, lesions (fluid filled on back), pink, warm Psychiatric (Brief) alert, attentive, oriented Laboratory Laboratory Laboratory Tests Test 01/24/17 04:46 01/24/17 08:15 01/25/17 03:55 Turbidity < 20 < 20 Sodium Level 140MEQ/L 142MEQ/L Potassium Level 3.8MEQ/L 3.9MEQ/L Chloride Level 99MEQ/L 101MEQ/L Carbon Dioxide Level 32MEQ/L 32MEQ/L Anion Gap 9MEQ/L 9MEQ/L Blood Urea Nitrogen 30.0MG/DL 25.0MG/DL Creatinine 0.7MG/DL 0.7MG/DL Glomerular Filtration Rate Calc 82 82 BUN/Creatinine Ratio 43RATIO 36RATIO Glucose Level 136MG/DL 128MG/DL Calculated Osmolality 277MOSM/KG 279MOSM/KG Calcium Level 9.2MG/DL 9.6MG/DL Total Bilirubin 2.20MG/DL 1.60MG/DL Icterus Index < 2 < 2 Aspartate Amino Transf (AST/SGOT) 52U/L 32U/L Alanine Aminotransferase (ALT/SGPT) 64U/L 49U/L Alkaline Phosphatase 107U/L 99U/L Total Protein 6.6G/DL 6.5G/DL Albumin 3.4G/DL 3.3G/DL Globulin 3.2G/DL 3.2G/DL Albumin/Globulin Ratio 1.1RATIO 1.0RATIO Chemistry Specimen Hemolysis 29 19 Arterial Blood pH 7.350 Arterial Blood Partial Pressure CO2 62MMHG Arterial Blood pO2 at Patient Temp 75MMHG Arterial Blood HCO3 34MEQ/L Arterial Blood Total CO2 36.1MEQ/L Arterial Blood Oxygen Saturation 94.0% Arterial Blood Base Excess 6.7MMOL/L Oxygen Delivery Method (LAB) Bpap, % Blood Gas Oxygen Liter Flow Blood Gas Oxygen Percent Given 30 Blood Gas Vent Rate Blood Gas Tidal Volume ML Conjugated Bilirubin 0.00MG/DL Unconjugated Bilirubin 1.00MG/DL Medications Current Medications Aspirin (Ecotrin) 81 mg O ONCE PO Last administered on 01/18/17 18:45; Start 01/18/17 at 15:45; Stop 01/18/17 at 15:46; Status DC Enoxaparin Sodium (Lovenox) 40 mg DAILY SQ Last administered on 01/19/17 09:13 ; Start 01/19/17 at 09:00; Stop 01/19/17 at 13:46; Status DC Albuterol/ Ipratropium (Duoneb) 3 ml Q2H PRN AEROSOL ; Start 01/18/17 at 17:15 Acetaminophen (Tylenol Arthritis) 1,300 mg DAILY PRN PO PAIN; Start 01/18/17 at 17:15; Stop 01/18/17 at 18:37; Status DC Salmeterol Xinafoate/ Fluticasone (Advair 250-50 Diskus) 1 puff DAILY ORAL INH Last administered on 01/25/17 07:07; Start 01/19/17 at 09:00 Levothyroxine Sodium (Synthroid) 50 mcg ACB PO Last administered on 01/25/17 05:45; Start 01/19/17 at 06:30 Aspirin (ASA) 81 mg DAILY PO Last administered on 01/19/17 09:13; Start at 09:00; Stop 01/19/17 at 15:49; Status DC Lisinopril (Prinivil) 20 mg DAILY PO Last administered on 01/25/17 07:55; Start 01/19/17 at 09:00 Miscellaneous Medication (May use PRN orders) PRN PRN MC ; Start 01/18/17 at 18:30 Magnesium Hydroxide (Mom) 30 ml DAILY PRN PO CONSTIPATION; Start 01/18/17 at 18 :30 Bisacodyl (Dulcolax) 10 mg DAILY PRN RECTALLY CONSTIPATION; Start 01/18/17 at 18:30 Al Hydroxide/Mg Hydroxide (Maalox) 30 ml Q3H PRN PO INDIGESTION; Start at 18:30 Acetaminophen (Tylenol Regular Strength) 1-2 TABS PO Q5H PRN PO DISCOMFORT Last administered on 01/25/17 07:55; Start 01/18/17 at 18:30 Nitroglycerin (Nitrostat) 0.4 mg Q5M PRN SL CHEST PAIN; Start 01/18/17 at 18:30 Guaifenesin/ Dextromethorphan (Mucinex Dm 600/ 30 Mg Tablet) 1 tab Q12HR PO Last administered on 01/25/17 07:55; Start 01/18/17 at 21:00 Acetaminophen/ Codeine Phosphate (Tylenol #3) 1 tab Q6H PRN PO PAIN Last administered on 01/18/17 22:52; Start 01/18/17 at 23:00; Stop 01/19/17 at 14:16 ; Status DC Iohexol 1 bottle 1 bottle STK-MED ONCE .ROUTE ; Start 01/19/17 at 11:20; Stop at 11:21; Status DC Sodium Chloride (NS) 100 ml @ As Directed STK-MED ONCE .ROUTE ; Start 01/19/17 at 11:20; Stop 01/19/17 at 11:21; Status DC Sodium Chloride (Iv Flush) 10 ml STK-MED ONCE .ROUTE ; Start 01/19/17 at 11:20; Stop 01/19/17 at 11:21; Status DC Methylprednisolone Sodium Succinate (Solu-Medrol) 125 mg O ONCE IV Last administered on 01/19/17 11:54; Start 01/19/17 at 11:30; Stop 01/19/17 at 11:37 ; Status DC Rivaroxaban (Xarelto) 15 mg BIDWM PO Last administered on 01/25/17 07:55; Start 01/19/17 at 14:00; Stop 02/10/17 at 17:31 Acetaminophen/ Hydrocodone Bitart ([place] 5/325) 1 tab Q5H PRN PO PAIN Last administered on 01/24/17 19:38; Start 01/19/17 at 14:00; Stop 01/24/17 at 21:59 ; Status DC Potassium Chloride (Kdur) 20 meq O ONCE PO Last administered on 01/21/17 12: 22; Start 01/21/17 at 12:30; Stop 01/21/17 at 12:31; Status DC Furosemide (Lasix) 40 mg DAILY PO Last administered on 01/25/17 07:55; Start 01/22/17 at 09:00 Acetazolamide (Diamox) 500 mg O ONCE PO Last administered on 01/22/17 12:16; Start 01/22/17 at 09:45; Stop 01/22/17 at 12:18; Status DC Morphine Sulfate (Morphine) 2 mg Q2H PRN IV SEVERE PAIN Last administered on 05:06; Start 01/22/17 at 17:45; Stop 01/23/17 at 12:06; Status DC Diphenhydramine HCl (Benadryl) 25 mg HS PRN PO INSOMNIA Last administered on 21:24; Start 01/23/17 at 17:45 Lidocaine (Lidoderm) 1 patch DAILY PRN TD PAIN Last administered on 4/17/17at 07:54; Start 01/23/17 at 17:45 Lidocaine (Lidoderm Patch Removal) 1 removal 2100 PRN TOP ; Start 01/25/17 at 12:00 Assessment & Plan Problems: (1) Pulmonary embolism Status: Acute Qualifiers: Pulmonary embolism type: other Chronicity: acute Acute cor pulmonale presence: without acute cor pulmonale Qualified Codes: I26.99 - Other pulmonary embolism without acute cor pulmonale Assessment & Plan: Xarelto 15mg BID X 21days, then 20mg daily (2) Elevated troponin Status: Acute Assessment & Plan: 1) 0.144. trend serial troponin. EKG without ischemic changes. (3) Hypoxia Status: Acute Assessment & Plan: reported in the 70s at immediate care (4) CAD (coronary artery disease) Status: Chronic Assessment & Plan: reports last heart cath 10 years ago (5) Mild aortic stenosis Status: Chronic Assessment & Plan: Obtain echo (6) Carotid artery bruit Status: Chronic Assessment & Plan: obtain carotid doppler (7) Hypertension Status: Chronic Assessment & Plan: Poor control in ED. Takes Lisinopril and Triamterene/HCTZ at home (8) Obese Status: Chronic Qualifiers: Obesity type: due to excess calories Obesity severity: morbid Qualified Codes: E66.01 - Morbid (severe) obesity due to excess calories Plan/Intensity of Service 01/19/16 Trend serial troponin levels. Obtain Echo due to Mild and Carotid doppler due to Left bruit heard. Needs better BP control as well. 01/19/17 Troponin trending down. Carotids without significant stenosis. PE on CTA: Xarelto 15mg BID X 21days, then 20mg daily for 3 months for PE, DC aspirin. 01/20/17 Decrease Lasix to Daily 01/21/17 Change Lasix to PO 01/22/17 Drowsy today from Benadryl and pain medicine. no change in plan from cardiology. 01/25/17 Discussed patient's skin condition with Dr. Ayers. He feels contact dermatitis is likely, giving Benadryl only at night now. NEELAM CHACKO MD 01/29/17 1002: Assessment & Plan Plan/Intensity of Service After examining the patient I agree with the above assessment. I am involved in the formulation of the patient's plan of care. JANETT MCADAMS BEVEL GEAR GENERATOR OPERATOR Jan 25, 2017 13:24 NEELAM CHACKO MD Jan 29, 2017 13:49
--- NOTE | 2017-01-25 14:14 | NUR ---
OXYGEN PATIENT WEANED DOWN TO 1L NC O2. WHILE ASLEEP, REQUIRING 3L NC. WILL CALL RT TO SEE ABOUT PLACING PT ON BIPAP FOR NAPS.
--- NOTE | 2017-01-25 14:24 | NUR ---
CM CM IN TO TALK WITH PT AND FAMILY. PT LINDSEY DC NEEDS. PT AND FAMILY AWARE TO CONTACT CM SHOULD NEEDS ARISE.
[2017-01-25 14:46] LABS: BLOOD, URINE TRACE-LYSED (NEGATIVE); COLOR,URINE YELLOW (YELLOW); LEUKOCYTE ESTERASE ,URINE NEGATIVE (NEGATIVE); NITRITE,URINE NEGATIVE (NEGATIVE); UROBILINOGEN,URINE 0.2 EU/DL (NORMAL)
[2017-01-25] MEDS: DiphenhydrAMINE 2% CREAM 28.3 GM TOP PRN (15:22)
--- NOTE | 2017-01-25 15:22 | PNPDOC ---
JOE QUINTANILLA V BUTTER MAKER 01/25/17 1514: Subjective Date DATE: 01/25/17 TIME: 15:05 Subjective Dot is seen today while resting this afternoon. She is alert and orientated and remembers my visit from yesterday. She complains of having a itchy rash to her back. She does have several circular macular areas of erythema. She continues to have ongoing chronic back pain. Current on 2.5 liters of oxygen to maintain saturations. She feels that her "mind" is improving. BP 131/67. Objective Vital Signs Vital signs Vital Signs Date Time Temp Pulse Resp B/P Pulse Ox O2 Delivery O2 Flow Rate FiO2 01/25/17 10:58 71 01/25/17 10:49 16 93 01/25/17 09:10 Nasal Cannula 2.50 01/25/17 07:33 97.8 131/67 01/25/17 01:06 30 Telemetry Rhythm: Sinus Rhythm Height (Feet): 5 Height (Inches): 6.00 Weight (Kilograms): 116.600 General General Appearance: Alert, Orientated x 3, Cooperative, No Acute Distress Eyes (Brief) Eyes: FOUND: EOMI ENMT (Brief) ENMT: FOUND: mucosa moist, normal dentition, NOT FOUND: pharnyx erythema Neck (Brief) Neck: FOUND: midline, NOT FOUND: adenopathy, carotid bruits, tracheal deviation Respiratory (Brief) Respiratory: NOT FOUND: wheezes Comments Diminished Cardiovascular (Brief) Cardiac: FOUND: regular rate, regular rhythm, NOT FOUND: murmur, pedal edema Capillary Refill: <2 sec Abdomen (Brief) Abdominal: FOUND: BS normo active x4, soft, NOT FOUND: distended, tender Lymphatic (Brief) Lymphatic: NOT FOUND: adenopathy Musculoskeletal (Brief) Musculoskeletal: NOT FOUND: tenderness Integumentary (Brief) Integumentary: FOUND: dry, pink, warm Neurologic (Brief) Neurological: FOUND: cranial 2-12 intact Psychiatric (Brief) Psychiatric: FOUND: alert, attentive, normal affect, oriented Laboratory Laboratory Laboratory Tests 01/24/17 04:46 01/25/17 03:55 Assessment & Plan Problems: (1) Encephalopathy Status: Acute Assessment & Plan: Likely due to hypercarbia (2) Chronic respiratory failure with hypercapnia Assessment & Plan: Acute/chronic. Reported history of sleep apnea and home nocturnal oxygen use (3) Acute respiratory failure with hypoxia Status: Acute (4) Acute exacerbation of CHF (congestive heart failure) Status: Acute Qualifiers: Congestive heart failure type: diastolic Qualified Codes: I50.33 - Acute on chronic diastolic (congestive) heart failure Assessment & Plan: ECHO with normal EF (5) Pulmonary embolism Status: Acute Qualifiers: Pulmonary embolism type: other Chronicity: acute Acute cor pulmonale presence: without acute cor pulmonale Qualified Codes: I26.99 - Other pulmonary embolism without acute cor pulmonale (6) Pulmonary edema Status: Acute Qualifiers: Chronicity: acute Qualified Codes: J81.0 - Acute pulmonary edema (7) Elevated troponin Status: Resolved Assessment & Plan: Secondary to PE (8) CAD (coronary artery disease) Status: Chronic (9) Hypertension Status: Chronic (10) Asthma Status: Chronic (11) Sleep apnea Status: Chronic Assessment & Plan: Uses O2 at night. (12) Hypothyroid Status: Chronic (13) Osteoarthritis Status: Chronic Qualifiers: Osteoarthritis location: multiple joints Osteoarthritis type: primary Qualified Codes: M15.0 - Primary generalized (osteo)arthritis (14) Elevated liver enzymes Status: Acute Assessment & Plan: POA (15) Obese Status: Chronic Qualifiers: Obesity type: due to excess calories Obesity severity: morbid Qualified Codes: E66.01 - Morbid (severe) obesity due to excess calories Plan/Intensity of Service 01/25/17 Continue BiPAP as able along with oxygen while awake. Encephalopathy continues to improve however she is not at her baseline. LFTs have normalizes and Bilirubin has decreased to 1.6. In regarding to itching will order topical Benadryl cream. Discussed barriers to returning home. Patient is interested in IRU. Will discuss further with attending, Dr Ayers Code Status Full Code Hospital Course Summary Disclaimer The hospital course summary below is not to be considered part of the above Progress Note. Hospital Course Summary 01/18/17: Admit, inpatient status. Attending: Dr. Ayers 1. Acute hypoxic respiratory failure, acute CHF exacerbation, elevated troponin * Trend troponin. Monitor rhythm on telemetry. Dr. Velasquez has been consulted. * Echocardiogram and carotid Doppler are pending. * Lasix 40 mg IV 1. Will discuss ongoing diuresis with Dr. Ayers. * DuoNeb every 6 hours. * Continue supplemental oxygen to maintain saturations. * Check lipid panel. Start daily aspirin - history of peptic ulcer disease, monitor closely. 2. Hypertension * Continue lisinopril * Hold Maxzide for now since we will give IV diuresis. 3. Hypothyroidism: Continue levothyroxine and check TSH 4. Asthma * Asthma exacerbation less likely * Continue Advair and DuoNeb's. 01/19 Doing about the same. Feels some SOA despite O2. Notes cough, worse with deep breathing. Not mobilizing sputum. Not sore in chest wall or hurting with breathing/cough. No nausea. Appetite decreased. No ab pain. No f//c. Back pain bothersome. CT PE protocol showing probable PE - Xarelto started by cardiology. Continue Lasix to help pulmonary edema - monitor creatinine, especially in light of CT contrast. Continue with supplemental O2. Encourage IS. Iredell 5 to help pain. Consult PT/OT to help improve functional status. Recheck CMP in am due to elevated LFT and medication use. Check CBC in am to due to anticoagulants. 01/20 Feeling better-less washed out. Still notes unsteadiness when up. Worked with therapy today. Breathing improving, but still having cough and not able to maintain saturations without O2. No pain with breathing or chest pain. No nausea or ab pain. No stool. Creatinine stable at 0.9. CO2 increased to 39. Liver enzymes decreasing. With increasing CO2 did give Diamox 500mg x2, 6 hours apart. Cardiology decreased Lasix to 40mg IV daily. Continue Xarelto for treatment of PE. Continue with supplemental O2, decreasing as able. Continue IS and deep breathing. PT/OT helping to increase functional abilities. Recheck CMP in am due to diuretic use and elevated liver enzymes. Will check CBC in am due to Xarelto. 01/21 Had rash to back this morning-reports raised welts. Very itchy. Has subsided. Breathing doing fair-still notes SOA and some cough. Little congestion, no sputum. No pain with breathing. Coughs with deep breath. Requiring O2 at 3.5L to maintain saturations. Appetite decreased. No nausea or ab pain. Urinating well. Is ambulating in halls with assistance. Give 500mg Diamox this afternoon. Continue Lasix 40mg IV daily. Potassium decreased - 20mEq KCl given at noon. Mg normal. Continue Xarelto for treatment of PE. Continue with supplemental O2, decreasing as able. Continue breathing exercises. Encourage continue activities. Continue work with therapy. Monitor for recurrence of rash. Recheck BMP in am due to diuretic use. Will check CBC in am due to Xarelto. Pt wonders when she can return to work - uncertain at this time, but told her return next week is not possible. 01/22 Sleepy this morning. Slept soundly last night (but didn't waken for her chronic pain medications, but more still and uncomfortable this morning). Rash better - not itchy or needing further Benadryl. Breathing feels slightly better - less SOA. No cough, sputum or pain with breathing. On 3.5L to have sats in low 90s. Not having chest pressure or pain. Denies nausea or ab pain. Strength decreased. Creatinine stable at 0.8. Potassium improved. Give 500mg Diamox this afternoon. Cardiology change Lasix to 40mg po as of this am. Continue Xarelto for treatment of PE. Continue with supplemental O2, wean as able - use lowest flow possible. Encourage IS/deep breathing. Suspect with need continuous O2 at time of discharge. Encourage continue activities. Continue work with therapy. Check UA due to leukocytosis. Recheck BMP in am due to diuretic use. Will check CBC in am due to Xarelto. 01/23/17 Increased encephalopathy reported yesterday and today. Patient noted to have bicarbonate of 36 increasing to 39 2 days after admission prompting treatment with Diamox, suggests underlying hypercarbia. Blood gas confirmed earlier in the hospitalization and today's blood gas demonstrates worsening of hypercarbia with development of mild respiratory acidosis now. Morphine and Iredell discontinued to avoid excessive sedation. BiPAP trial to be initiated this evening. Continue diuresis and anticoagulation. No indication of acute intracranial of the amount and neuro exam grossly nonfocal. Tylenol as needed for back pain, lidocaine patch added for use at night if additional medication necessary. Hypernatremia resolved, mild transaminitis with elevated bilirubin (previously demonstrated to be unconjugated) today but benign abdominal examination. Reassess tomorrow. 01/24/17 Currently on 3.5 liters of oxygen by nasal cannula. Utilized BiPAP overnight. ABG today has improved, pH up to 7.35, pCO2 decreased to 62, pO2 increased to 75 , bicarbonate slightly down at 34. Suspect that as CO2 continues to decrease encephalopathy. Will continue to improve. Continue on so for treatment of pulmonary emboli. She will continue on 50 milligrams twice a day until 02/10/17. Then, may change to 20 milligrams daily for ongoing anticoagulation. Continue with scheduled breathing treatments and Advair Diskus. Lidoderm patch and Iredell as needed for chronic back pain Did discuss at great length with daughter regarding her concerns of discharge plan. She inquired about transition options such as IRU or skilled prior to discharge home independently. Will discuss patient plan further with Dr. Hope 01/25/17 Continue BiPAP as able along with oxygen while awake. Encephalopathy continues to improve however she is not at her baseline. LFTs have normalizes and Bilirubin has decreased to 1.6. In regarding to itching will order topical Benadryl cream. Discussed barriers to returning home. Patient is interested in IRU. Will discuss further with attending, LIZBETH Bernal MD 01/25/17 3549: Assessment & Plan Plan/Intensity of Service Have independently interviewed and examined pt. Chart reviewed. Case discussed with CM and my BUTTER MAKER. Care plan developed with my supervision; agree with above. Doing fair. Rash to back-itchy. Topical Benadryl did help itching. Breathing fair - no pain with breathing. Less congestion and SOA. Needing less O2. Bowels moving. No ab pain. Tolerating therapy and activities - strength and stability slow to return. Lungs; decreased, little air movement CV: regular AB: soft obese nt/nd MSE: awake alert appropriate GEN: appears tired and weak Plan: Will give 40mg Prednisone x1 now due to rash (may help breathing and arthritic pain) - 20mg tomorrow am. Wean O2 as able. Encourage activities. Continue Xarelto for treatment of PE. Recheck lab in am. Continue with supportive care. JOE QUINTANILLA APRN Jan 25, 2017 15:14 LIZBETH AYERS MD Jan 25, 2017 17:09
[2017-01-25] MEDS ORDERED: PredniSONE 20 MG TABLET PO ONE (17:15)
--- NOTE | 2017-01-25 18:14 | NUR ---
SHIFT SUMMARY VSS. ON 1L NC WHILE AWAKE. ON 2-3L NC WHILE SLEEPING. PT REFUSES TO WEAR BIPAP. UP IN ROOM WITH X1 ASSIST. UP TO CHAIR FOR LUNCH AND SUPPER. MEAGER APPETITE. PT REPORTS THAT BENADRYL CREAM HAS HELPED A LITTLE TO STOP ITCHING ON BACK RASH. A&O X3, LETHARGY CONTINUES TO DECREASE. THINKING AND MENTAL STATUS CLEARER DAY PROGRESSES, RESPONDING QUICKER IN CONVERSATION. LIDODERM PATCH ON LOW BACK. GOOD URINE OUTPUT. REGULAR BOWEL MOVEMENTS. BED AND CHAIR ALARMS IN USE.
--- NOTE | 2017-01-25 21:10 | NUR ---
PRN PT WAS GIVEN PRN TYLENOL FOR 6/10 HIP PAIN. PT USING 2 L/NC OXYGEN. O2 LEVELS 90%. WILL CONTINUE O MONITOR.
--- NOTE | 2017-01-25 22:30 | NUR ---
BIPAP PT PUT BIPAP ON FOR LESS THAN AN HR. SHE VOICED THAT SHE CAN'T STAND IT ANYMORE. PT WAS EDUCATED THE NEEDS OF USING THE BIPAP. VOICED UNDERSTANDING. RT NOTIFIED. PT ON 3L/NC.
[2017-01-26] VITALS (7 sets, daily range): BP systolic 140–148; BP diastolic 70–75; PULSE 79–83; RESP 16–18; TEMP 96.8–98.9; O2SAT 92–98
[2017-01-26 05:01] LABS: BASOPHILS % (AUTO) 0.1 % (0-2); HCT - HEMATOCRIT 48.2 % (36-46); IMMATURE GRANULOCYTE # (AUTO) 0.02 T/MM3 (0.00-0.03); IMMATURE GRANULOCYTE % (AUTO) 0.2 % (0.0-0.5); LYMPHOCYTES # (AUTO) 1.2 T/MM3 (1-4.8); LYMPHOCYTES % (AUTO) 11.5 % (23-45); MEAN CORPUSCULAR HGB 30.2 UUG (26-34); MEAN CORPUSCULAR HGB CONC(MCHC 31.1 GM/DL (31-37); MEAN CORPUSCULAR VOLUME 97.2 UM3 (80-100); MEAN PLATELET VOLUME 11.5 UM3 (9.4-12.4); MONOCYTES # (AUTO) 0.3 T/MM3 (0-0.8); MONOCYTES % (AUTO) 2.4 % (0-9.0); NEUTROPHILS #(AUTO)-ABSOLUTE 9.1 T/MM3 (1.8-7.7); NEUTROPHILS % (AUTO) 85.8 % (33-66); RED BLOOD COUNT 4.96 M/MM3 (4.00-5.20); WBC - WHITE BLOOD COUNT 10.6 T/MM3 (4.5-11.0)
[2017-01-26 05:19] LABS: ANION GAP 12 MEQ/L (5-15); BUN/CREATININE RATIO 44 RATIO (6-26); CALCIUM 9.5 MG/DL (8.4-10.2); CHLORIDE 101 MEQ/L (98-107); CO2 - CARBON DIOXIDE 33 MEQ/L (22-30); CREATININE 0.5 MG/DL (0.7-1.2); GLOMERULAR FILTRATION RATE 121; GLUCOSE 202 MG/DL (65-110); POTASSIUM 4.2 MEQ/L (3.6-5); SODIUM 146 MEQ/L (134-144)
[2017-01-26] MEDS: LEVOTHYROXINE 50 MCG TABLET PO SCH (05:46)
--- NOTE | 2017-01-26 06:21 | NUR ---
SUMMARY PT IN BED SLEEPING. ON O2 3L/NC WHICH KEEPS HER ABOVE 92%. PT PUT THE BIPAP FOR LESS THAN AN HR LAST NIGHT. WAS EDUCATED THE NEED TO USE IT WHILE SLEEPING BUT SHE CONTINUED TO REFUSE WEARING IT. PT HAS BEEN UP TWO TIMES THIS SHIFT TO USE THE BATHROOM 1 PERSON ASSIST WITH A GAIT BELT AND A WALKER. ALERT AND ORIENTED. WAS GIVEN TYLENOL X1 LAST NIGHT FOR HIP PAIN. NO MORE COMPLAIN OF PAIN THIS SHIFT. PT REFUSED TO WEAR SCD'S. SHE SAID SHE CAN'T SLEEP WITH THEM.
[2017-01-26] MEDS: FLUTICASONE/SALMETEROL 250/50 DISK INHALER ORAL INH SCH (07:13)
[2017-01-26] MEDS: ALBUTEROL/IPRATROPIUM INHAL. 2.5mg-0.5mg/3ml Neb. AEROSOL SCH ×4 (07:13→19:49)
--- NOTE | 2017-01-26 09:21 | NUR ---
CM CM IN TO VISIT PATIENT, SLEEPING. WILL RETURN LATER.
[2017-01-26] MEDS: RIVAROXABAN 15 MG TABLET PO SCH ×2 (10:11→17:25)
[2017-01-26] MEDS: GUAIFENESIN DM 600mg/30mg TABLET PO SCH ×2 (10:11→21:10)
[2017-01-26] MEDS: FUROSEMIDE 40 MG TABLET PO SCH (10:11)
[2017-01-26] MEDS: PredniSONE 20 MG TABLET PO SCH (10:12)
[2017-01-26] MEDS: LISINOPRIL 20 MG TABLET PO SCH (10:12)
--- NOTE | 2017-01-26 10:18 | NUR ---
CM CM IN TO VISIT PATIENT, SHE IS A&O. PATIENT HAD PLANNED ON RETURNING HOME, BUT OT RECOMMENDED IRU AND SHE IS AGREEABLE TO THIS. SHE IS CONCERNED ABOUT HER JOB/FMLA BUT DAUGHTER IS PICKING UP PAPERWORK FOR HER. THIS CM CONTACT INFORMATION PROVIDED.
--- NOTE | 2017-01-26 10:22 | NUR ---
IRU referral received. Last PT evaluation was 01/21. Admission evaluation pending updated PT assessment.
--- NOTE | 2017-01-26 14:00 | NUR ---
PT advises patient is safe with ambulation and does not require inpatient level therapy at this time. Only OT need is identified. Patient does not meet IRU admission criteria. RENÉE Harrison notified.
--- NOTE | 2017-01-26 14:42 | NUR ---
CM VISITED WITH PATIENT REGARDING DISCHARGE PLAN, PT HAS RECOMMENDED HOME WITH HHS SINCE SHE DID SO WELL TODAY. PATIENT WANTS TO GO HOME BUT AT THIS TIME DOES NOT WANT [facility] TO COME TO HER HOME, HH LIST PROVIDED. HAS FAMILY THAT CAN CHECK ON HER AND LIVES WITH SPOUSE.
--- NOTE | 2017-01-26 15:28 | PNPDOC ---
Subjective Date DATE: 01/26/17 TIME: 15:19 Subjective F/U: Acute respiratory failure with hypoxia, Pulm edema, CHF, PE Doing okay today. Reports severe episode of sweats last night. Tolerating therapy-declined by IRU as too functional. Ambulatory abilities increasing. Breathing improving-notes less SOA, but still some cough/congestion. No pain with breathing. Eating well. No ab pain. Objective Vital Signs Vital signs Vital Signs Date Time Temp Pulse Resp B/P Pulse Ox O2 Delivery O2 Flow Rate FiO2 01/26/17 11:36 Nasal Cannula 1.00 01/26/17 11:36 79 01/26/17 11:36 18 97 01/26/17 07:25 98.9 145/75 01/25/17 21:28 30 Telemetry Rhythm: Sinus Rhythm Height (Feet): 5 Height (Inches): 6.00 Weight (Kilograms): 115.000 General General Appearance: Alert, Obese, Orientated x 3, Well Nourished, Well Developed, Cooperative, Looks Stated Age Eyes (Brief) Eyes: FOUND: EOMI, PERRL, NOT FOUND: scleral icterus ENMT (Brief) ENMT: FOUND: hearing intact, mucosa moist Neck (Brief) Neck: FOUND: midline, NOT FOUND: nuchal rigidity, spasm Respiratory (Brief) Respiratory: NOT FOUND: clear all gonzalez (Decreased breath sounds bilaterally ) , rales, wheezes Cardiovascular (Brief) Cardiac: FOUND: pedal edema (+2 ), regular rate, regular rhythm Abdomen (Brief) Abdominal: FOUND: BS normo active x4, soft, NOT FOUND: distended, tender Extremities (Brief) Extremity : Side: Bilateral Extremity: leg Extremity Finding: FOUND: edema (+2 ) Musculoskeletal (Brief) Musculoskeletal: FOUND: extremities move equally, NOT FOUND: deformity, spasm Integumentary (Brief) Integumentary: FOUND: dry, warm Neurologic (Brief) Neurological: FOUND: cranial 2-12 intact, motor (intact ) Psychiatric (Brief) Psychiatric: FOUND: alert, attentive, normal affect, oriented Laboratory Laboratory Laboratory Tests 01/25/17 03:55 01/26/17 04:16 Laboratory Tests 01/26/17 04:16 Assessment & Plan Problems: (1) Chronic respiratory failure with hypercapnia Assessment & Plan: Acute/chronic. Reported history of sleep apnea and home nocturnal oxygen use (2) Acute respiratory failure with hypoxia Status: Acute (3) Acute exacerbation of CHF (congestive heart failure) Status: Acute Qualifiers: Congestive heart failure type: diastolic Qualified Codes: I50.33 - Acute on chronic diastolic (congestive) heart failure Assessment & Plan: ECHO with normal EF (4) Pulmonary embolism Status: Acute Qualifiers: Pulmonary embolism type: other Chronicity: acute Acute cor pulmonale presence: without acute cor pulmonale Qualified Codes: I26.99 - Other pulmonary embolism without acute cor pulmonale (5) Pulmonary edema Status: Acute Qualifiers: Chronicity: acute Qualified Codes: J81.0 - Acute pulmonary edema (6) Encephalopathy Status: Resolved Assessment & Plan: Likely due to hypercarbia (7) Elevated troponin Status: Resolved Assessment & Plan: Secondary to PE (8) CAD (coronary artery disease) Status: Chronic (9) Carotid artery stenosis Status: Chronic Qualifiers: Laterality: left Qualified Codes: I65.22 - Occlusion and stenosis of left carotid artery Assessment & Plan: 50-60% on the left (10) Hypertension Status: Chronic (11) Asthma Status: Chronic (12) Sleep apnea Status: Chronic Assessment & Plan: Uses O2 at night. (13) Hypothyroid Status: Chronic (14) Osteoarthritis Status: Chronic Qualifiers: Osteoarthritis location: multiple joints Osteoarthritis type: primary Qualified Codes: M15.0 - Primary generalized (osteo)arthritis (15) Elevated liver enzymes Status: Resolved Assessment & Plan: POA (16) Obese Status: Chronic Qualifiers: Obesity type: due to excess calories Obesity severity: morbid Qualified Codes: E66.01 - Morbid (severe) obesity due to excess calories Plan/Intensity of Service Continue with current CV medications. Will continue Prednisone 20mg daily. Wean O2 as able. Declined by IRU - CM looking into other options. Likely home with outpatient PT. Encourage continue activities and ambulation. Recheck lab in am. Possible discharge tomorrow if continues to do well. Case discussed with CM. Time spent with pt care 35 minutes. DVT Prophylaxis: Xarelto Code Status Full Code Hospital Course Summary Disclaimer The hospital course summary below is not to be considered part of the above Progress Note. Hospital Course Summary 01/18/17: Admit, inpatient status. Attending: Dr. Ayers 1. Acute hypoxic respiratory failure, acute CHF exacerbation, elevated troponin * Trend troponin. Monitor rhythm on telemetry. Dr. Velasquez has been consulted. * Echocardiogram and carotid Doppler are pending. * Lasix 40 mg IV 1. Will discuss ongoing diuresis with Dr. Ayers. * DuoNeb every 6 hours. * Continue supplemental oxygen to maintain saturations. * Check lipid panel. Start daily aspirin - history of peptic ulcer disease, monitor closely. 2. Hypertension * Continue lisinopril * Hold Maxzide for now since we will give IV diuresis. 3. Hypothyroidism: Continue levothyroxine and check TSH 4. Asthma * Asthma exacerbation less likely * Continue Advair and DuoNeb's. 01/19 Doing about the same. Feels some SOA despite O2. Notes cough, worse with deep breathing. Not mobilizing sputum. Not sore in chest wall or hurting with breathing/cough. No nausea. Appetite decreased. No ab pain. No f//c. Back pain bothersome. CT PE protocol showing probable PE - Xarelto started by cardiology. Continue Lasix to help pulmonary edema - monitor creatinine, especially in light of CT contrast. Continue with supplemental O2. Encourage IS. Wilsons 5 to help pain. Consult PT/OT to help improve functional status. Recheck CMP in am due to elevated LFT and medication use. Check CBC in am to due to anticoagulants. 01/20 Feeling better-less washed out. Still notes unsteadiness when up. Worked with therapy today. Breathing improving, but still having cough and not able to maintain saturations without O2. No pain with breathing or chest pain. No nausea or ab pain. No stool. Creatinine stable at 0.9. CO2 increased to 39. Liver enzymes decreasing. With increasing CO2 did give Diamox 500mg x2, 6 hours apart. Cardiology decreased Lasix to 40mg IV daily. Continue Xarelto for treatment of PE. Continue with supplemental O2, decreasing as able. Continue IS and deep breathing. PT/OT helping to increase functional abilities. Recheck CMP in am due to diuretic use and elevated liver enzymes. Will check CBC in am due to Xarelto. 01/21 Had rash to back this morning-reports raised welts. Very itchy. Has subsided. Breathing doing fair-still notes SOA and some cough. Little congestion, no sputum. No pain with breathing. Coughs with deep breath. Requiring O2 at 3.5L to maintain saturations. Appetite decreased. No nausea or ab pain. Urinating well. Is ambulating in halls with assistance. Give 500mg Diamox this afternoon. Continue Lasix 40mg IV daily. Potassium decreased - 20mEq KCl given at noon. Mg normal. Continue Xarelto for treatment of PE. Continue with supplemental O2, decreasing as able. Continue breathing exercises. Encourage continue activities. Continue work with therapy. Monitor for recurrence of rash. Recheck BMP in am due to diuretic use. Will check CBC in am due to Xarelto. Pt wonders when she can return to work - uncertain at this time, but told her return next week is not possible. 01/22 Sleepy this morning. Slept soundly last night (but didn't waken for her chronic pain medications, but more still and uncomfortable this morning). Rash better - not itchy or needing further Benadryl. Breathing feels slightly better - less SOA. No cough, sputum or pain with breathing. On 3.5L to have sats in low 90s. Not having chest pressure or pain. Denies nausea or ab pain. Strength decreased. Creatinine stable at 0.8. Potassium improved. Give 500mg Diamox this afternoon. Cardiology change Lasix to 40mg po as of this am. Continue Xarelto for treatment of PE. Continue with supplemental O2, wean as able - use lowest flow possible. Encourage IS/deep breathing. Suspect with need continuous O2 at time of discharge. Encourage continue activities. Continue work with therapy. Check UA due to leukocytosis. Recheck BMP in am due to diuretic use. Will check CBC in am due to Xarelto. 01/23/17 Increased encephalopathy reported yesterday and today. Patient noted to have bicarbonate of 36 increasing to 39 2 days after admission prompting treatment with Diamox, suggests underlying hypercarbia. Blood gas confirmed earlier in the hospitalization and today's blood gas demonstrates worsening of hypercarbia with development of mild respiratory acidosis now. Morphine and Wilsons discontinued to avoid excessive sedation. BiPAP trial to be initiated this evening. Continue diuresis and anticoagulation. No indication of acute intracranial of the amount and neuro exam grossly nonfocal. Tylenol as needed for back pain, lidocaine patch added for use at night if additional medication necessary. Hypernatremia resolved, mild transaminitis with elevated bilirubin (previously demonstrated to be unconjugated) today but benign abdominal examination. Reassess tomorrow. 01/24/17 Currently on 3.5 liters of oxygen by nasal cannula. Utilized BiPAP overnight. ABG today has improved, pH up to 7.35, pCO2 decreased to 62, pO2 increased to 75 , bicarbonate slightly down at 34. Suspect that as CO2 continues to decrease encephalopathy. Will continue to improve. Continue on so for treatment of pulmonary emboli. She will continue on 50 milligrams twice a day until 02/10/17. Then, may change to 20 milligrams daily for ongoing anticoagulation. Continue with scheduled breathing treatments and Advair Diskus. Lidoderm patch and Wilsons as needed for chronic back pain Did discuss at great length with daughter regarding her concerns of discharge plan. She inquired about transition options such as IRU or skilled prior to discharge home independently. Will discuss patient plan further with Dr. Hope 01/25/17 Continue BiPAP as able along with oxygen while awake. Encephalopathy continues to improve however she is not at her baseline. LFTs have normalizes and Bilirubin has decreased to 1.6. In regarding to itching will order topical Benadryl cream. Discussed barriers to returning home. Patient is interested in IRU. Will discuss further with attending, Dr Ayers Prednisone 40mg given x1 - start 20mg daily on the . 01/26 Doing okay today. Reports severe episode of sweats last night. Tolerating therapy-declined by IRU as too functional. Ambulatory abilities increasing. Breathing improving-notes less SOA, but still some cough/congestion. No pain with breathing. Eating well. No ab pain. Continue with current CV medications. Will continue Prednisone 20mg daily. Wean O2 as able. Declined by IRU - CM looking into other options. Likely home with outpatient PT. Encourage continue activities and ambulation. Recheck lab in am. Possible discharge tomorrow if continues to do well. LIZBETH AYERS MD Jan 26, 2017 15:22
--- NOTE | 2017-01-26 16:46 | NUR ---
SHIFT PT HAS BEEN PLEASANT AND COOPERATIVE ALL SHIFT. PT IS A&OX3, UP WITH ONE ASSIST, GAIT BELT AND WALKER. PT HAS BEEN UP TO RECLINER FOR MEALS AND HAS AMBULATED IN [place] WITH STAFF. PT DENIES PAIN, N/V AND SOA. PT IS ON 1L O2 NC DURING THE DAY AND REFUSES BIPAP AT NOC, SO O2 INCREASED TO 3L O2 NC. FAMILY HAS BEEN AT BEDSIDE. NO OTHER CHANGES SINCE PREVIOUS SHIFT. ALARMS IN USE AND CALL LIGHT WITH IN REACH.
--- NOTE | 2017-01-26 17:41 | PNPDOC ---
JANETT MCADAMS COORDINATOR OF GENETIC SERVICES 01/26/17 1724: Subjective Date DATE: 01/26/17 TIME: 17:21 Subjective Dot is sitting up in the recliner, denies complaints. States she feels like a fog has lifted Objective Vital Signs Vital signs Vital Signs 01/26/17 01/26/17 01/26/17 01/26/17 07:13 07:13 07:13 07:13 Pulse 85 86 Resp 20 20 Pulse Ox 95 01/26/17 01/26/17 01/26/17 01/26/17 07:25 08:00 11:36 11:36 Temp 98.9 Pulse 83 83 78 Resp 18 18 18 B/P 145/75 Pulse Ox 98 97 O2 Delivery Nasal Cannula O2 Flow Rate 3.00 01/26/17 01/26/17 01/26/17 01/26/17 11:36 11:36 15:58 15:58 Pulse 79 74 Resp 18 O2 Delivery Nasal Cannula O2 Flow Rate 1.00 01/26/17 01/26/17 16:00 16:08 Temp 98.2 Pulse 82 78 Resp 16 B/P 140/72 Pulse Ox 96 O2 Delivery Nasal Cannula O2 Flow Rate 1.00 Telemetry Rhythm: Sinus Rhythm Height (Feet): 5 Height (Inches): 6.00 Weight (Kilograms): 115.000 General Alert, Orientated x 3 ENMT (Brief) mucosa moist Neck (Brief) NOT FOUND: JVD, carotid bruits Respiratory (Brief) equal bilaterally, rales (bibasilar), NOT FOUND: clear all gonzalez Cardiovascular (Brief) murmur (2/6), pedal edema, regular rate, regular rhythm Abdomen (Brief) BS normo active x4, soft, NOT FOUND: tender Integumentary (Brief) dry, pink, warm Psychiatric (Brief) alert, attentive, oriented Laboratory Laboratory Laboratory Tests Test 01/25/17 03:55 01/25/17 14:38 01/26/17 04:16 Turbidity < 20 < 20 Sodium Level 142MEQ/L 146MEQ/L Potassium Level 3.9MEQ/L 4.2MEQ/L Chloride Level 101MEQ/L 101MEQ/L Carbon Dioxide Level 32MEQ/L 33MEQ/L Anion Gap 9MEQ/L 12MEQ/L Blood Urea Nitrogen 25.0MG/DL 22.0MG/DL Creatinine 0.7MG/DL 0.5MG/DL Glomerular Filtration Rate Calc 82 121 BUN/Creatinine Ratio 36RATIO 44RATIO Glucose Level 128MG/DL 202MG/DL Calculated Osmolality 279MOSM/KG 290MOSM/KG Calcium Level 9.6MG/DL 9.5MG/DL Total Bilirubin 1.60MG/DL Conjugated Bilirubin 0.00MG/DL Unconjugated Bilirubin 1.00MG/DL Icterus Index < 2 < 2 Aspartate Amino Transf (AST/SGOT) 32U/L Alanine Aminotransferase (ALT/SGPT) 49U/L Alkaline Phosphatase 99U/L Total Protein 6.5G/DL Albumin 3.3G/DL Globulin 3.2G/DL Albumin/Globulin Ratio 1.0RATIO Chemistry Specimen Hemolysis 19 46 Urine Collection Type Voided-not cc-midstr Urine Color Yellow Urine Turbidity Clear Urine pH 5.5 Urine Specific [place] 1.010 Urine Protein Negative Urine Glucose (UA) Negative Urine Ketones Trace Urine Blood Trace-lysed Urine Nitrite Negative Urine Bilirubin Negative Urine Urobilinogen 0.2EU/DL Urine Leukocyte Esterase Negative Urinalysis Comment Microscopic not ind. White Blood Count 10.6T/MM3 Red Blood Count 4.96M/MM3 Hemoglobin 15.0GM/DL Hematocrit 48.2% Mean Corpuscular Volume 97.2UM3 Mean Corpuscular Hemoglobin 30.2UUG Mean Corpuscular Hemoglobin Concent 31.1GM/DL RDW Standard Deviation 54.7FL Platelet Count 343T/MM3 Mean Platelet Volume 11.5UM3 Immature Granulocyte % (Auto) 0.2% Neutrophils (%) (Auto) 85.8% Lymphocytes (%) (Auto) 11.5% Monocytes (%) (Auto) 2.4% Eosinophils (%) (Auto) 0.0% Basophils (%) (Auto) 0.1% Absolute Immature Granulocyte (auto 0.02T/MM3 Absolute Neutrophils (auto) 9.1T/MM3 Absolute Lymphocytes (auto) 1.2T/MM3 Absolute Monocytes (auto) 0.3T/MM3 Absolute Eosinophils (auto) 0.0T/MM3 Absolute Basophils (auto) 0.0T/MM3 Laboratory Tests 01/26/17 04:16 Laboratory Tests 01/26/17 04:16 Medications Current Medications Medications (Trade) Dose Ordered Sig/Bobby Start Time Stop Time Status Last Admin Dose Admin Enoxaparin Sodium (Lovenox) 40 mg DAILY 01/19/17 09:00 01/19/17 13:46 DC 01/19/17 09:13 40 MG Albuterol/ Ipratropium (Duoneb) 3 ml QID 01/18/17 21:00 01/26/17 15:58 3 ML Albuterol/ Ipratropium (Duoneb) 3 ml Q2H PRN 01/18/17 17:15 Acetaminophen (Tylenol Arthritis) 1,300 mg DAILY PRN 01/18/17 17:15 01/18/17 18:37 DC Diphenhydramine HCl (Benadryl) 25 mg HS 01/18/17 22:00 01/23/17 17:52 DC 01/22/17 21:45 25 MG Salmeterol Xinafoate/ Fluticasone (Advair 250-50 Diskus) 1 puff DAILY 01/19/17 09:00 01/26/17 07:13 1 PUFF Levothyroxine Sodium (Synthroid) 50 mcg ACB 01/19/17 06:30 01/26/17 05:46 50 MCG Lisinopril (Prinivil) 20 mg DAILY PRN 01/18/17 17:15 01/18/17 18:26 DC Aspirin (ASA) 81 mg DAILY 01/19/17 09:00 01/19/17 15:49 DC 01/19/17 09:13 81 MG Lisinopril (Prinivil) 20 mg DAILY 01/19/17 09:00 01/26/17 10:12 20 MG Miscellaneous Medication (May use PRN orders) PRN PRN 01/18/17 18:30 Magnesium Hydroxide (Mom) 30 ml DAILY PRN 01/18/17 18:30 Bisacodyl (Dulcolax) 10 mg DAILY PRN 01/18/17 18:30 Al Hydroxide/Mg Hydroxide (Maalox) 30 ml Q3H PRN 01/18/17 18:30 Acetaminophen (Tylenol Regular Strength) 1-2 TABS PO Q5H PRN 01/18/17 18:30 01/25/17 21:06 650 MG Nitroglycerin (Nitrostat) 0.4 mg Q5M PRN 01/18/17 18:30 Guaifenesin/ Dextromethorphan (Mucinex Dm 600/ 30 Mg Tablet) 1 tab Q12HR 01/18/17 21:00 01/26/17 10:11 1 TAB Furosemide (Lasix) 40 mg BID. 01/19/17 09:00 01/20/17 14:14 DC 01/20/17 08:45 40 MG Acetaminophen/ Codeine Phosphate (Tylenol #3) 1 tab Q6H PRN 01/18/17 23:00 01/19/17 14:16 DC 01/18/17 22:52 1 TAB Rivaroxaban (Xarelto) 15 mg BIDWM 01/19/17 13:45 01/19/17 14:01 DC Rivaroxaban (Xarelto) 20 mg WS 02/10/17 17:30 Rivaroxaban (Xarelto) 15 mg BIDWM 01/19/17 14:00 02/10/17 17:31 01/26/17 10:11 15 MG Acetaminophen/ Hydrocodone Bitart ([place] 5/325) 1 tab Q5H PRN 01/19/17 14:00 01/24/17 21:59 DC 01/24/17 19:38 1 TAB Furosemide (Lasix) 40 mg DAILY 01/21/17 09:00 01/21/17 19:12 DC 01/21/17 08:12 40 MG Diphenhydramine HCl (Benadryl) 50 mg Q6H PRN 01/21/17 06:30 01/23/17 12:06 DC 01/21/17 06:28 50 MG Furosemide (Lasix) 40 mg DAILY 01/22/17 09:00 01/26/17 10:11 40 MG Morphine Sulfate (Morphine) 2 mg Q2H PRN 01/22/17 17:45 01/23/17 12:06 DC 01/23/17 05:06 2 MG Diphenhydramine HCl (Benadryl) 25 mg HS PRN 01/23/17 17:45 01/24/17 21:24 25 MG Lidocaine (Lidoderm) 1 patch DAILY PRN 01/23/17 17:45 01/25/17 07:54 1 PATCH Lidocaine (Lidoderm Patch Removal) 1 removal 2100 PRN 01/25/17 12:00 Zinc Acetate/ Diphenhydramine (Benadryl Extra Strength) 1 applic TID PRN 01/25/17 15:15 01/25/17 15:22 1 APPLIC Prednisone (PredniSONE) 20 mg WB 01/26/17 08:00 01/26/17 10:12 20 MG Assessment & Plan Problems: (1) Pulmonary embolism Status: Acute Qualifiers: Pulmonary embolism type: other Chronicity: acute Acute cor pulmonale presence: without acute cor pulmonale Qualified Codes: I26.99 - Other pulmonary embolism without acute cor pulmonale Assessment & Plan: Xarelto 15mg BID X 21days, then 20mg daily (2) Elevated troponin Status: Acute Assessment & Plan: 1) 0.144. trend serial troponin. EKG without ischemic changes. (3) Hypoxia Status: Acute Assessment & Plan: reported in the 70s at immediate care (4) CAD (coronary artery disease) Status: Chronic Assessment & Plan: reports last heart cath 10 years ago (5) Mild aortic stenosis Status: Chronic Assessment & Plan: Obtain echo (6) Carotid artery bruit Status: Chronic Assessment & Plan: obtain carotid doppler (7) Hypertension Status: Chronic Assessment & Plan: Poor control in ED. Takes Lisinopril and Triamterene/HCTZ at home (8) Obese Status: Chronic Qualifiers: Obesity type: due to excess calories Obesity severity: morbid Qualified Codes: E66.01 - Morbid (severe) obesity due to excess calories Plan/Intensity of Service 01/19/16 Trend serial troponin levels. Obtain Echo due to Mild and Carotid doppler due to Left bruit heard. Needs better BP control as well. 01/19/17 Troponin trending down. Carotids without significant stenosis. PE on CTA: Xarelto 15mg BID X 21days, then 20mg daily for 3 months for PE, DC aspirin. 01/20/17 Decrease Lasix to Daily 01/21/17 Change Lasix to PO 01/22/17 Drowsy today from Benadryl and pain medicine. no change in plan from cardiology. 01/25/17 Discussed patient's skin condition with Dr. Ayers. He feels contact dermatitis is likely, giving Benadryl only at night now. 01/26/17 Much more clear today. She is how she was when I met her last week. Expects to discharge tomorrow NEELAM CHACKO MD 01/29/17 1349: Assessment & Plan Plan/Intensity of Service After examining the patient I agree with the above assessment. I am involved in the formulation of the patient's plan of care. JANETT MCADAMS COORDINATOR OF GENETIC SERVICES Jan 26, 2017 17:24 NEELAM CHACKO MD Jan 29, 2017 13:49
[2017-01-26] MEDS: DiphenhydrAMINE 2% CREAM 28.3 GM TOP PRN (21:11)
[2017-01-27] VITALS (7 sets, daily range): BP systolic 140–180; BP diastolic 71–85; PULSE 70–82; RESP 12; TEMP 98–98.3; O2SAT 93–98
--- NOTE | 2017-01-27 05:15 | NUR ---
Status Pt ambulated in the halls in evening with GB, walker, and one assist. Denied SOA. On 1 L O2 during evening. Agreed to use Bi-Pap overnight and has used it constantly since 2244. Appeared to rest well. No new concerns at this time. Will continue to monitor.
[2017-01-27] MEDS: LEVOTHYROXINE 50 MCG TABLET PO SCH (05:34)
[2017-01-27 06:14] LABS: BASOPHILS % (AUTO) 0.4 % (0-2); EOSINOPHILS # (AUTO) 0.3 T/MM3 (0-0.5); EOSINOPHILS % (AUTO) 2.7 % (0-4); HCT - HEMATOCRIT 43.5 % (36-46); HGB - HEMOGLOBIN 13.6 GM/DL (12-16); IMMATURE GRANULOCYTE # (AUTO) 0.03 T/MM3 (0.00-0.03); IMMATURE GRANULOCYTE % (AUTO) 0.3 % (0.0-0.5); LYMPHOCYTES % (AUTO) 26.9 % (23-45); MEAN CORPUSCULAR HGB 30.2 UUG (26-34); MEAN CORPUSCULAR HGB CONC(MCHC 31.3 GM/DL (31-37); MEAN CORPUSCULAR VOLUME 96.7 UM3 (80-100); MEAN PLATELET VOLUME 11.3 UM3 (9.4-12.4); NEUTROPHILS #(AUTO)-ABSOLUTE 6.9 T/MM3 (1.8-7.7); NEUTROPHILS % (AUTO) 60.7 % (33-66); WBC - WHITE BLOOD COUNT 11.3 T/MM3 (4.5-11.0)
[2017-01-27] MEDS: DiphenhydrAMINE 2% CREAM 28.3 GM TOP PRN (06:15)
[2017-01-27 06:28] LABS: ANION GAP 12 MEQ/L (5-15); BUN/CREATININE RATIO 40 RATIO (6-26); CALCIUM 9.4 MG/DL (8.4-10.2); CHLORIDE 102 MEQ/L (98-107); CO2 - CARBON DIOXIDE 32 MEQ/L (22-30); CREATININE 0.5 MG/DL (0.7-1.2); GLOMERULAR FILTRATION RATE 121; GLUCOSE 132 MG/DL (65-110); MAGNESIUM 1.7 MG/DL (1.6-2.3); POTASSIUM 3.5 MEQ/L (3.6-5); SODIUM 146 MEQ/L (134-144)
--- NOTE | 2017-01-27 06:30 | NUR ---
STATUS PT REQUESTED TO TAKE OFF BI-PAP AT 0530. STATED SHE DID NOT SLEEP WELL WITH MASK. MENTATION CLEAR AND FOCUSED THIS MORNING. STATES DESIRE TO GO HOME TODAY. INTERESTED IN MASK FOR HOME USE THAT FEELS LESS CLAUSTROPHOBIC. REQUESTED PRN TOPICAL BENADRYL FOR LOWER BACK ITCH. GIVEN CHARTED.
[2017-01-27] MEDS: ALBUTEROL/IPRATROPIUM INHAL. 2.5mg-0.5mg/3ml Neb. AEROSOL SCH (07:16)
[2017-01-27] MEDS: RIVAROXABAN 15 MG TABLET PO SCH (08:06)
[2017-01-27] MEDS: PredniSONE 20 MG TABLET PO SCH (08:06)
[2017-01-27] MEDS: LISINOPRIL 20 MG TABLET PO SCH (08:06)
[2017-01-27] MEDS: FUROSEMIDE 40 MG TABLET PO SCH (08:06)
[2017-01-27] MEDS: GUAIFENESIN DM 600mg/30mg TABLET PO SCH (08:06)
[2017-01-27] MEDS: ACETAMINOPHEN 325 MG TABLET PO PRN (08:08)
--- NOTE | 2017-01-27 09:08 | NUR ---
PAIN PT REPORTS PAIN IN LOWER BACK, PRN TYLENOL GIVEN.
[2017-01-27] MEDS: FLUTICASONE/SALMETEROL 250/50 DISK INHALER ORAL INH SCH (09:31)
[2017-01-27] MEDS ORDERED: HYDROCODONE/APAP 5 mg/325 mg TABLET PO PRN (10:15)
--- NOTE | 2017-01-27 10:22 | NUR ---
PAIN, NEW ORDER PT REPORTS TYLENOL DID NOTHING TO DECREASE PAIN, NEW ORDER FOR [place] [address] SHORE AND GIVEN.
[2017-01-27] MEDS ORDERED: ALBUTEROL/IPRATROPIUM INHAL. 2.5mg-0.5mg/3ml Neb. AEROSOL SCH (11:00)
[2017-01-27] MEDS ORDERED: POTASSIUM CHLORIDE 20 MEQ TABLET PO ONE (12:30)
--- NOTE | 2017-01-27 12:56 | NUR ---
CM CM IN TO VISIT WITH PT. PT AWARE TO CALL CM SHOULD NEEDS ARISE.
--- NOTE | 2017-01-27 14:12 | PNPDOC ---
Subjective Date DATE: 01/27/17 TIME: 14:05 Subjective F/U: Acute respiratory failure with hypoxia, Pulm edema, CHF, PE Doing well today. Breathing easier. Less rash. Eating well. No nausea. Did feel Rillito helpful for back pain-tolerated well. Objective Vital Signs Vital signs Vital Signs Date Time Temp Pulse Resp B/P Pulse Ox O2 Delivery O2 Flow Rate FiO2 01/27/17 12:06 74 01/27/17 11:55 16 94 01/27/17 07:22 98.0 180/85 Nasal Cannula 3.00 01/27/17 02:31 30 Telemetry Rhythm: Sinus Rhythm Height (Feet): 5 Height (Inches): 6.00 Weight (Kilograms): 116.100 General General Appearance: Alert, Obese, Orientated x 3, Well Nourished, Well Developed, Cooperative, Looks Stated Age Eyes (Brief) Eyes: FOUND: EOMI, PERRL, NOT FOUND: scleral icterus ENMT (Brief) ENMT: FOUND: hearing intact, mucosa moist Neck (Brief) Neck: FOUND: midline, NOT FOUND: nuchal rigidity, spasm Respiratory (Brief) Respiratory: FOUND: other (No distress ), NOT FOUND: clear all gonzalez ( decreased air movement ), wheezes Cardiovascular (Brief) Cardiac: FOUND: pedal edema (+2 ), regular rate, regular rhythm Abdomen (Brief) Abdominal: FOUND: BS normo active x4, soft, NOT FOUND: distended, tender Extremities (Brief) Extremity : Side: Bilateral Extremity: leg Extremity Finding: FOUND: edema (+2 ) Musculoskeletal (Brief) Musculoskeletal: FOUND: extremities move equally, NOT FOUND: deformity, spasm Integumentary (Brief) Integumentary: FOUND: dry, warm Neurologic (Brief) Neurological: FOUND: cranial 2-12 intact, motor (Intact ) Psychiatric (Brief) Psychiatric: FOUND: alert, attentive, normal affect, oriented Laboratory Laboratory Laboratory Tests 01/26/17 04:16 01/27/17 05:27 Laboratory Tests 01/26/17 04:16 01/27/17 05:27 Assessment & Plan Problems: (1) Chronic respiratory failure with hypercapnia Assessment & Plan: Acute/chronic. Reported history of sleep apnea and home nocturnal oxygen use (2) Acute respiratory failure with hypoxia Status: Acute (3) Acute exacerbation of CHF (congestive heart failure) Status: Acute Qualifiers: Congestive heart failure type: diastolic Qualified Codes: I50.33 - Acute on chronic diastolic (congestive) heart failure Assessment & Plan: ECHO with normal EF (4) Pulmonary embolism Status: Acute Qualifiers: Pulmonary embolism type: other Chronicity: acute Acute cor pulmonale presence: without acute cor pulmonale Qualified Codes: I26.99 - Other pulmonary embolism without acute cor pulmonale (5) Pulmonary edema Status: Acute Qualifiers: Chronicity: acute Qualified Codes: J81.0 - Acute pulmonary edema (6) Encephalopathy Status: Resolved Assessment & Plan: Likely due to hypercarbia (7) Elevated troponin Status: Resolved Assessment & Plan: Secondary to PE (8) CAD (coronary artery disease) Status: Chronic (9) Carotid artery stenosis Status: Chronic Qualifiers: Laterality: left Qualified Codes: I65.22 - Occlusion and stenosis of left carotid artery Assessment & Plan: 50-60% on the left (10) Hypertension Status: Chronic (11) Asthma Status: Chronic (12) Sleep apnea Status: Chronic Assessment & Plan: Uses O2 at night. (13) Hypothyroid Status: Chronic (14) Osteoarthritis Status: Chronic Qualifiers: Osteoarthritis location: multiple joints Osteoarthritis type: primary Qualified Codes: M15.0 - Primary generalized (osteo)arthritis (15) Elevated liver enzymes Status: Resolved Assessment & Plan: POA (16) Obese Status: Chronic Qualifiers: Obesity type: due to excess calories Obesity severity: morbid Qualified Codes: E66.01 - Morbid (severe) obesity due to excess calories Plan/Intensity of Service Will d/c to home. Medically stable. Continue with supplemental O2 Recommend Sleep study in near future-pt interested in treating her CARLA. Continue Xarelto for PE. Continue Prednisone 20 mg for 5 day. Rillito prn pain - stop Mobic due to Xarelto use. F/U with Dr Christianson/More Eddy in 1 week. Out patient PT as previously planning. See orders for details. Case discussed with CM. Time spent with pt care and discharge 35 minutes. DVT Prophylaxis: Xarelto Code Status Full Code Hospital Course Summary Disclaimer The hospital course summary below is not to be considered part of the above Progress Note. Hospital Course Summary 01/18/17: Admit, inpatient status. Attending: Dr. Ayers 1. Acute hypoxic respiratory failure, acute CHF exacerbation, elevated troponin * Trend troponin. Monitor rhythm on telemetry. Dr. Velasquez has been consulted. * Echocardiogram and carotid Doppler are pending. * Lasix 40 mg IV 1. Will discuss ongoing diuresis with Dr. Ayers. * DuoNeb every 6 hours. * Continue supplemental oxygen to maintain saturations. * Check lipid panel. Start daily aspirin - history of peptic ulcer disease, monitor closely. 2. Hypertension * Continue lisinopril * Hold Maxzide for now since we will give IV diuresis. 3. Hypothyroidism: Continue levothyroxine and check TSH 4. Asthma * Asthma exacerbation less likely * Continue Advair and DuoNeb's. 01/19 Doing about the same. Feels some SOA despite O2. Notes cough, worse with deep breathing. Not mobilizing sputum. Not sore in chest wall or hurting with breathing/cough. No nausea. Appetite decreased. No ab pain. No f//c. Back pain bothersome. CT PE protocol showing probable PE - Xarelto started by cardiology. Continue Lasix to help pulmonary edema - monitor creatinine, especially in light of CT contrast. Continue with supplemental O2. Encourage IS. Rillito 5 to help pain. Consult PT/OT to help improve functional status. Recheck CMP in am due to elevated LFT and medication use. Check CBC in am to due to anticoagulants. 01/20 Feeling better-less washed out. Still notes unsteadiness when up. Worked with therapy today. Breathing improving, but still having cough and not able to maintain saturations without O2. No pain with breathing or chest pain. No nausea or ab pain. No stool. Creatinine stable at 0.9. CO2 increased to 39. Liver enzymes decreasing. With increasing CO2 did give Diamox 500mg x2, 6 hours apart. Cardiology decreased Lasix to 40mg IV daily. Continue Xarelto for treatment of PE. Continue with supplemental O2, decreasing as able. Continue IS and deep breathing. PT/OT helping to increase functional abilities. Recheck CMP in am due to diuretic use and elevated liver enzymes. Will check CBC in am due to Xarelto. 01/21 Had rash to back this morning-reports raised welts. Very itchy. Has subsided. Breathing doing fair-still notes SOA and some cough. Little congestion, no sputum. No pain with breathing. Coughs with deep breath. Requiring O2 at 3.5L to maintain saturations. Appetite decreased. No nausea or ab pain. Urinating well. Is ambulating in halls with assistance. Give 500mg Diamox this afternoon. Continue Lasix 40mg IV daily. Potassium decreased - 20mEq KCl given at noon. Mg normal. Continue Xarelto for treatment of PE. Continue with supplemental O2, decreasing as able. Continue breathing exercises. Encourage continue activities. Continue work with therapy. Monitor for recurrence of rash. Recheck BMP in am due to diuretic use. Will check CBC in am due to Xarelto. Pt wonders when she can return to work - uncertain at this time, but told her return next week is not possible. 01/22 Sleepy this morning. Slept soundly last night (but didn't waken for her chronic pain medications, but more still and uncomfortable this morning). Rash better - not itchy or needing further Benadryl. Breathing feels slightly better - less SOA. No cough, sputum or pain with breathing. On 3.5L to have sats in low 90s. Not having chest pressure or pain. Denies nausea or ab pain. Strength decreased. Creatinine stable at 0.8. Potassium improved. Give 500mg Diamox this afternoon. Cardiology change Lasix to 40mg po as of this am. Continue Xarelto for treatment of PE. Continue with supplemental O2, wean as able - use lowest flow possible. Encourage IS/deep breathing. Suspect with need continuous O2 at time of discharge. Encourage continue activities. Continue work with therapy. Check UA due to leukocytosis. Recheck BMP in am due to diuretic use. Will check CBC in am due to Xarelto. 01/23/17 Increased encephalopathy reported yesterday and today. Patient noted to have bicarbonate of 36 increasing to 39 2 days after admission prompting treatment with Diamox, suggests underlying hypercarbia. Blood gas confirmed earlier in the hospitalization and today's blood gas demonstrates worsening of hypercarbia with development of mild respiratory acidosis now. Morphine and Rillito discontinued to avoid excessive sedation. BiPAP trial to be initiated this evening. Continue diuresis and anticoagulation. No indication of acute intracranial of the amount and neuro exam grossly nonfocal. Tylenol as needed for back pain, lidocaine patch added for use at night if additional medication necessary. Hypernatremia resolved, mild transaminitis with elevated bilirubin (previously demonstrated to be unconjugated) today but benign abdominal examination. Reassess tomorrow. 01/24/17 Currently on 3.5 liters of oxygen by nasal cannula. Utilized BiPAP overnight. ABG today has improved, pH up to 7.35, pCO2 decreased to 62, pO2 increased to 75 , bicarbonate slightly down at 34. Suspect that as CO2 continues to decrease encephalopathy. Will continue to improve. Continue on so for treatment of pulmonary emboli. She will continue on 50 milligrams twice a day until 02/10/17. Then, may change to 20 milligrams daily for ongoing anticoagulation. Continue with scheduled breathing treatments and Advair Diskus. Lidoderm patch and Rillito as needed for chronic back pain Did discuss at great length with daughter regarding her concerns of discharge plan. She inquired about transition options such as IRU or skilled prior to discharge home independently. Will discuss patient plan further with Dr. Hope 01/25/17 Continue BiPAP as able along with oxygen while awake. Encephalopathy continues to improve however she is not at her baseline. LFTs have normalizes and Bilirubin has decreased to 1.6. In regarding to itching will order topical Benadryl cream. Discussed barriers to returning home. Patient is interested in IRU. Will discuss further with attending, Dr Ayers Prednisone 40mg given x1 - start 20mg daily on the . 01/26 Doing okay today. Reports severe episode of sweats last night. Tolerating therapy-declined by IRU as too functional. Ambulatory abilities increasing. Breathing improving-notes less SOA, but still some cough/congestion. No pain with breathing. Eating well. No ab pain. Continue with current CV medications. Will continue Prednisone 20mg daily. Wean O2 as able. Declined by IRU - CM looking into other options. Likely home with outpatient PT. Encourage continue activities and ambulation. Recheck lab in am. Possible discharge tomorrow if continues to do well. 01/27 Doing well today. Breathing easier. Less rash. Eating well. No nausea. Did feel Rillito helpful for back pain-tolerated well. Will d/c to home. Medically stable. Continue with supplemental O2 Recommend Sleep study in near future-pt interested in treating her CARLA. Continue Xarelto for PE. Continue Prednisone 20 mg for 5 day. Rillito prn pain - stop Mobic due to Xarelto use. F/U with Dr Christianson/More Eddy in 1 week. Out patient PT as previously planning. See orders for details. LIZBETH AYERS MD Jan 27, 2017 14:10
[2017-01-27] MEDS ORDERED: RIVA20TA PO (14:20)
[2017-01-27] MEDS ORDERED: DIPH28.33 TOP (14:20)
[2017-01-27] MEDS ORDERED: FURO40TA5 PO (14:20)
[2017-01-27] MEDS ORDERED: RIVA15TA PO (14:20)
[2017-01-27] MEDS ORDERED: LISI-621 PO (14:20)
[2017-01-27] MEDS ORDERED: POTA-12 PO (14:20)
[2017-01-27] MEDS ORDERED: PRED20TA PO (14:20)
[2017-01-27] MEDS ORDERED: HYDR-4246 PO (14:20)
[2017-01-27] MEDS ORDERED: GUAI-782 PO (14:20)
--- NOTE | 2017-01-27 15:33 | NUR ---
DISMISSAL PT DISMISSED TO HOME VIA WHEELCHAIR TO VEHICLE WITH AT 1520. PT BELONGINGS PACKED, GO HOME INSTRUCTIONS GIVEN, SCRIPT FOR [facility] GIVEN AND OTHER SCRIPTS CALLED TO [facility]. PT DRESSED AND IVL PULLED.
--- NOTE | 2017-02-01 12:18 | DSF ---
ADMISSION DIAGNOSIS Acute respiratory failure with hypoxia. DISCHARGE DIAGNOSIS Acute respiratory failure with hypoxia. ASSOCIATED CONDITIONS AND COMPLICATIONS Acute on chronic diastolic heart failure. Pulmonary embolism. Pulmonary edema. Elevated troponin secondary to pulmonary embolism. Coronary artery disease. Hypertension. Obstructive sleep apnea. Asthma. Hypothyroidism. Encephalopathy. Osteoarthritis. Elevated liver enzymes. Carotid artery stenosis. Morbid obesity with BMI 41.3. PROCEDURES Echocardiogram - technically difficult; LVEF 60%. CONSULTS Haile Escobar MD - Cardiology PT, OT CLINICAL RESUME Dot Gonzalez a 71-year-old female who presents to [facility] emergency room secondary to dizziness and shortness of breath. She describes a four-day history of shortness of air. During this time, she has been feeling more tired. She notes dizziness with positional changes. She has been having increasing swelling in her legs for the past six months. During this time, she was restarted on Triamterene. She notes a barking cough for the past 4-5 days. Cough is nonproductive. She does note increased sinus congestion as well as frontal headache for the past four or five days. Yesterday her arms felt numb but this has since resolved. She has not been noticing chest pressure or pain. Denies PND (although she admits she has not laid flat to sleep since age 7-8). She has not had dysphagia. She has standby oxygen but reports she has not used it for the past three months. Upon arrival to emergency department, her room air saturation was 70%. She was placed on 4 liters of oxygen and saturations improved to 94. She was hypertensive with blood pressure 206/98. Lab was obtained revealing mild leukocytosis with white count 11.2. Sodium was 142. CO2 was high at 36. Troponin was slightly elevated at 0.144. Chest x-ray showed mild congestive failure. Dr. Ayers was notified and patient was subsequently placed in inpatient admission status at [facility] for further evaluation and treatment. For complete details of the H&P refer to that document. LABORATORY White blood count is 11.2 with hemoglobin 15.8, hematocrit 52.3, MCV 101.6 and platelets 243,000. Serum sodium is 146, potassium 4.7, chloride 100, CO2 36, BUN 18 with creatinine 0.6, GFR 98 and blood glucose 97. Troponin I is 0.144. ProBNP is 1310. Vitamin B12 is normal at 587. TSH is normal at 1.38. AST is elevated at 55, with ALT 59. Fasting lipid profile reveals total cholesterol 207 with LDL 147, HDL 34 and triglycerides 130. ABG reveals pH 7.390 with pCO2 62 and pO2 68. UA is remarkable for 1+ leukocyte esterase with trace bacteria. Respiratory PCR panel is completely negative. HOSPITAL COURSE The patient was placed in inpatient admission status at [facility] under the care of Dr. Ayers. Cardiac telemetry was initiated. We did perform serial enzymes in light of the elevation of troponin. She was initiated on supplemental oxygen to help maintain saturations. Echocardiogram and carotid Dopplers were ordered. Lasix was initiated to help with diuresis. We did utilize DuoNeb routinely. Aspirin therapy was initiated in light of her elevated troponin. Lisinopril was continued but we held Maxzide secondary to use of IV Lasix. Dr. Escobar was consulted. Troponins did trend upwards. CT PE protocol was obtained and while it was suboptimal, it did show evidence of "probable right-sided pulmonary emboli." In light of this, she was started on Xarelto for anticoagulation. We did consult with PT, OT to help maximize functional status. Hospital course was one of very slow and gradual improvements. We did work to try to diuresis patient. During the hospitalization we did need to initiate Diamox as she tended to retain CO2. She also had episodes of pruritus but the exact etiology was uncertain. Towards the , she did have increasing confusion and encephalopathy. We did initiate BiPAP which seemed to be quite beneficial. We were able to wean down her oxygen but continued BiPAP use overnight. Strength and functional abilities were slow to improve. We did look into potential for IRU but the patient's functional status was too high and she was not a candidate for IRU. She did qualify for oxygen therapy by time of discharge. She had previously qualified several years ago but it sounds as if she has not been using this. We did encourage the patient to work on good respiratory toilet modalities. Lab was monitored during the hospitalization and her hemoglobin remained stable. Creatinine remained stable. We did see her liver enzymes normalize. By time of discharge she was eating and drinking well. She was maintaining saturations on oxygen and she qualified for oxygen 2 liters at rest with 3 liters with activities. She is also considering having further evaluation for treatment possibilities of her underlying sleep apnea. Narrative disclaimer: Above narrative is a brief summary of the patient's hospitalization; for complete details of the hospital course, refer to the medical record. DISCHARGE CONDITION Stable/good. DIET Low sodium. ACTIVITIES As tolerated; may return to work on February 08. MEDICATIONS Benadryl topically t.i.d. p.r.n. itch. Furosemide 40 mg daily. Mucinex DM b.i.d. [place] 5/325 one q.6h. p.r.n. pain. Lisinopril 20 mg daily. Potassium 10 mEq daily. Prednisone 20 mg with breakfast x5 days. Xarelto 15 mg b.i.d. with meals, initiating 20 mg with supper on 02/11/2017. Tylenol 650 mg two tablets daily p.r.n. pain. Tylenol #3 one t.i.d. p.r.n. pain. ProAir HFA p.r.n. Albuterol nebulized treatments p.r.n. Calcium 500 mg daily. Cinnamon 500 mg daily. Vitamin B12 daily. Benadryl 25 mg q.h.s. Advair 250/50 p.r.n. Synthroid 0.05 mg a.c. breakfast. Magnesium 500 mg b.i.d. Multivitamin daily. FOLLOWUP The patient will follow with Dr. Cabezas in approximately one week. The patient will follow with Dr. Escobar as needed for cardiac concerns. INSTRUCTIONS TO PATIENT The patient was instructed on her diagnosis and treatments provided. She was encouraged to be adherent with medications. We encouraged her to be adherent with oxygen. She will continue oxygen at 2 liters with rest and 3 liters with activities. We encouraged her on good breathing exercises. She will watch for temperature greater than 100.4, new or worsening chest pain, new or worsening respiratory problems or any bleeding. Should these or other concerns arise, she could be in contact with her primary provider. If symptoms become quite dire she can present to emergency room for acute evaluation. She voiced understanding of the above. Time spent with discharge greater than 35 minutes. MARISA
[2017-02-11] MEDS ORDERED: RIVAROXABAN 20 MG TABLET PO SCH (17:30)
== END 2017-01-27 15:20 | disposition home or self-care (01) | DRG 189 ==
LOC: ED 12:56 → MED 15:07 → ED 16:00
PROVIDERS: ADMIT Hospitalist; ATTEND Hospitalist
PROC: 5A09357 Assistance with Respiratory Ventilation, Less than 24 Consecutive Hours, Continuous Positive Airway Pressure (ICD-10-PCS; principal; 2017-01-23)
DX: J96.01 Acute respiratory failure with hypoxia (principal); G93.40 Encephalopathy, unspecified; I50.33 Acute on chronic diastolic (congestive) heart failure; I26.99 Other pulmonary embolism without acute cor pulmonale; J81.0 Acute pulmonary edema; Z68.41 Body mass index [BMI] 40.0-44.9, adult; J96.22 Acute and chronic respiratory failure with hypercapnia; I25.10 Atherosclerotic heart disease of native coronary artery without angina pectoris; I11.0 Hypertensive heart disease with heart failure; J45.909 Unspecified asthma, uncomplicated; R21 Rash and other nonspecific skin eruption; E03.9 Hypothyroidism, unspecified; G47.30 Sleep apnea, unspecified; E66.01 Morbid (severe) obesity due to excess calories; M19.91 Primary osteoarthritis, unspecified site
CPT/HCPCS: 36415; 36600; 80048; 80053; 80061; 80076; 81001; 81003; 82607; 82803; 83735; 83880; 84443; 84484; 85025; 87486; 87581; 87633; 87798; 93005; 93306; 94002; 94003; 94640

== ENCOUNTER 2017-06-21 09:59 | Inpatient (IN) ==
--- NOTE | 2017-06-21 10:24 | Emergency Department Report ---
SOB HPI - General Chief Complaint: Shortness of Breath/Dyspnea Stated Complaint: Shortness of breath Time Seen by Provider: 06/21/17 10:24 Source: patient, family Mode of arrival: ambulatory Limitations: no limitations - History of Present Illness Patient is a 71-year-old female presents emergency primary for evaluation of shortness of air. Patient history of CHF, also history of asthma. Patient went on a trip approximately 9 days ago has been feeling short of air since then normally uses 2 L at night, however for the last 2 days she's been using 2 L during the day as well. Patient having significant exertional dyspnea so today decided presents the ER for evaluation. On arrival after walking in the emergency Department patient's O2 sat 60% on room air MD Complaint: shortness of breath Onset (ago): week(s) Severity: moderate Consistency/Duration: constant Relieving factors: oxygen, rest Known history of: asthma, congestive heart failure - Related Data Home oxygen amount: 2 liters Home Medications Medication Instructions Recorded Confirmed Acetaminophen [Acetaminophen 8 1,300 mg PO QAM PRN #0 04/08/16 06/21/17 Hour] Albuterol Sulfate 1.25 mg AEROSOL Q4H PRN #0 04/08/16 06/21/17 Albuterol Sulfate [Proair Hfa] 1 puff INH Q4H PRN #0 04/08/16 06/21/17 Cinnamon Bark [Cinnamon] 500 mg PO DAILY #0 04/08/16 06/21/17 Fluticasone/Salmeterol [Advair 1 puff INH DAILY PRN #0 04/08/16 06/21/17 250-50 Diskus] Levothyroxine Sodium 50 mcg PO ACB #0 04/08/16 06/21/17 Magnesium Oxide [Magnesium] 500 mg PO BID #0 04/08/16 06/21/17 Multivitamin [Multi-Day Vitamins] 1 tab PO DAILY #0 04/08/16 06/21/17 diphenhydrAMINE HCl 25 mg PO BID #0 04/08/16 06/21/17 [Diphenhydramine HCl] Calcium Carbonate [Calcium] 500 mg PO DAILY #0 01/18/17 06/21/17 Hydrocodone/APAP 5/325 [[place] 1 tab PO Q4H PRN 06/21/17 06/21/17 5/325] Meloxicam [Meloxicam] 7.5 mg PO HS 06/21/17 06/21/17 Potassium Chloride 10 meq PO DAILY 06/21/17 06/21/17 Rivaroxaban [Xarelto] 20 mg PO HS 06/21/17 06/21/17 Triamterene/Hctz 37.5/25 Tab 1 tab PO DAILY 06/21/17 06/21/17 [MAXZIDE-25 eqv] Previous Rx's Medication Instructions Recorded Diphenhydramine HCl/Zinc Acet 1 applic TOP TID PRN #1 tube 01/27/17 [Benadryl Itch Stopping Crm] Furosemide 40 mg PO DAILY #30 tab 01/27/17 Lisinopril 20 mg PO DAILY #30 tab 01/27/17 Allergies Allergy/AdvReac Type Severity Reaction Status Date / Time iodine Allergy Unknown WELTS, Verified 06/21/17 10:25 PASSES OUT WHEN INJECTED Review of Systems Constitutional: Denies: fever, chills Eyes: Denies: eye discharge, vision change ENT: Denies: throat pain, dental pain Cardiovascular: Reports: dyspnea on exertion. Denies: chest pain, palpitations Respiratory: Denies: cough, dyspnea, wheezes Gastrointestinal: Denies: abdominal pain, nausea, vomiting Genitourinary: Denies: dysuria, frequency Neurological: Denies: headache, weakness Psychiatric: Denies: anxiety, depression Endocrine: Denies: fatigue Hematological/Lymphatic: Denies: easy bleeding Allergic/Immunologic: Denies: facial swelling PFSH Patient Stated Medical History Asthma Yes Pulmonary Embolism Yes Clotting Problems Yes Medical History Updates: Asthma. CHF. Prior DVT on anticoagulation - Social History Substance use type: does not use Alcohol intake frequency: does not drink Physical Exam - Limitations Limitations: no limitations - General General appearance: alert, in no apparent distress, obese - ENT ENT exam: Present: normal oropharynx, mucous membranes moist - Chest Chest inspection: Present: symmetric chest wall rise. Absent: tenderness - Respiratory Respiratory exam: Present: normal lung sounds bilaterally. Absent: respiratory distress, wheezes, stridor - Cardiovascular Cardiovascular exam: Present: regular rate, normal rhythm, normal heart sounds - Abdominal Exam Abdominal exam: Present: soft, distention, normal bowel sounds - Back Exam Back exam: Absent: tenderness, CVA tenderness (R), CVA tenderness (L), muscle spasm - Skin Skin exam: Present: warm, dry - Neurological Exam Neurological exam: Present: alert, oriented X3 - Psychiatric Psychiatric exam: Present: normal affect, normal mood Course Vital Signs Temperature 98.4 F 06/21/17 10:10 Pulse Rate 79 06/21/17 10:10 Respiratory Rate 22 06/21/17 10:10 Blood Pressure 157/77 H 06/21/17 10:10 Pulse Oximetry 62 L 06/21/17 10:10 Temperature 98.4 F 06/21/17 10:10 Pulse Rate 78 06/21/17 12:00 Respiratory Rate 18 06/21/17 12:00 Blood Pressure 140/63 H 06/21/17 12:00 Pulse Oximetry 94 06/21/17 12:00 Shortness of Breath/Dyspnea - Differential Diagnosis Likely: acute exacerbation of chronic obstructive airways disease, congestive heart failure, community acquired pneumonia, asthma with exacerbation, pulmonary embolism - Medical Records Attestation: I reviewed the patient's medical records. - Lab Data Attestation: I reviewed the patient's lab results. Result diagrams: 06/21/17 10:49 06/21/17 10:49 Lab Results 06/21/17 06/21/17 06/21/17 Range/Units 10:49 10:49 12:30 WBC 10.1 (4.5-11.0) T/MM3 RBC 4.18 (4.00-5.20) M/MM3 Hgb 13.2 (12-16) GM/DL Hct 43.0 (36-46) % MCV 102.9 H (80-100) UM3 MCH 31.6 (26-34) UUG MCHC 30.7 L (31-37) GM/DL RDW Std Deviation 57.7 H (36.9-50.2) FL Plt Count 293 (130-400) T/MM3 MPV 10.6 (9.4-12.4) UM3 Immature Gran % (Auto) 0.1 (0.0-0.5) % Neut % (Auto) 68.9 H (33-66) % Lymph % (Auto) 20.0 L (23-45) % Gilchrist % (Auto) 6.9 (0-9.0) % Eos % (Auto) 3.9 (0-4) % Baso % (Auto) 0.2 (0-2) % Neut # 6.9 (1.8-7.7) T/MM3 Lymph # 2.0 (1-4.8) T/MM3 Gilchrist # 0.7 (0-0.8) T/MM3 Eos # 0.4 (0-0.5) T/MM3 Baso # 0.0 (0-0.2) T/MM3 Abs Immat Gran (auto) 0.01 (0.00-0.03) T/MM3 ABG pH 7.380 (7.350-7.450) ABG pCO2 69 H* (34-45) MMHG ABG pO2 62 L (80-100) MMHG ABG HCO3 41 H (22-26) MEQ/L ABG Total CO2 42.9 H (23-27) MEQ/L ABG O2 Saturation 91.0 L (95.0-98.0) % ABG Base Excess 12.8 H (-2.0-2.0) MMOL/L O2 Delivery Method Nasal cannula, liter FiO2 (liters per min) 3 Turbidity < 20 (0-20) Sodium 144 (134-144) MEQ/L Potassium 5.1 H (3.6-5) MEQ/L Chloride 102 (98-107) MEQ/L Carbon Dioxide 36 H (22-30) MEQ/L Anion Gap 6 (5-15) MEQ/L BUN 16.0 (7-17) MG/DL Creatinine 0.6 L (0.7-1.2) MG/DL GFR Calculation 98 BUN/Creatinine Ratio 27 H (6-26) RATIO Glucose 98 (65-110) MG/DL Calculated Osmolality 278 (261-280) MOSM/KG Calcium 8.9 (8.4-10.2) MG/DL Total Bilirubin 0.80 (0.20-1.30) MG/DL Icterus Index < 2 (0-7) AST 44 H (14-36) U/L ALT 73 H (9-52) U/L Alkaline Phosphatase 109 (38-126) U/L Troponin I < 0.012 (0-0.12) ng/ml B-Natriuretic Peptide 3970 H (0-175) pg/mL Total Protein 6.6 (6.3-8.2) G/DL Albumin 3.6 (3.5-5.0) G/DL Globulin 3.0 (2.4-3.6) G/DL Albumin/Globulin Ratio 1.2 (1.1-2.2) RATIO Specimen Hemolysis 41 H (0-25) - Radiology Data Attestation: I reviewed the patient's radiology results. Mild failure no acute findings - EKG Data EKG #1 EKG attestation: Yes: I reviewed and interpreted this EKG. EKG shows normal: sinus rhythm Rate: normal, bradycardia Rhythm: NSR [place]/QRS: normal Interpretation: no acute changes Disposition Clinical Impression: Asthma with exacerbation Qualifiers: Asthma severity: mild persistent Qualified Code(s): J45.31 - Mild persistent asthma with (acute) exacerbation Congestive heart failure Qualifiers: Congestive heart failure type: unspecified congestive heart failure type Congestive heart failure chronicity: acute on chronic Qualified Code(s): I50.9 - Heart failure, unspecified Disposition: 02 To [facility] [place] Acute Care Condition: Stable Prescriptions: No Action Fluticasone/Salmeterol [Advair 250-50 Diskus] 1 puff INH DAILY PRN #0 PRN Reason: Prn Orders Magnesium Oxide [Magnesium] 500 mg PO BID #0 Calcium Carbonate [Calcium] 500 mg PO DAILY #0 Lisinopril 20 mg PO DAILY #30 tab Furosemide 40 mg PO DAILY #30 tab Meloxicam [Meloxicam] 7.5 mg PO HS Rivaroxaban [Xarelto] 20 mg PO HS Potassium Chloride 10 meq PO DAILY Hydrocodone/APAP 5/325 [[place] 5/325] 1 tab PO Q4H PRN PRN Reason: Pain Triamterene/Hctz 37.5/25 Tab [MAXZIDE-25 eqv] 1 tab PO DAILY Levothyroxine Sodium 50 mcg PO ACB #0 Albuterol Sulfate [Proair Hfa] 1 puff INH Q4H PRN #0 PRN Reason: Prn Orders Albuterol Sulfate 1.25 mg AEROSOL Q4H PRN #0 PRN Reason: Prn Orders Acetaminophen [Acetaminophen 8 Hour] 1,300 mg PO QAM PRN #0 PRN Reason: PAIN diphenhydrAMINE HCl [Diphenhydramine HCl] 25 mg PO BID #0 Cinnamon Bark [Cinnamon] 500 mg PO DAILY #0 Multivitamin [Multi-Day Vitamins] 1 tab PO DAILY #0 Diphenhydramine HCl/Zinc Acet [Benadryl Itch Stopping Crm] 1 applic TOP TID PRN #1 tube PRN Reason: ITCHING Referrals: Carolina Adams APRN [Family Provider] - - Seen By: physician
[2017-06-21] MEDS ORDERED: ALBUTEROL/IPRATROPIUM 2.5mg-0.5mg/3ml NEB AEROSOL ONE (10:30)
[2017-06-21] MEDS ORDERED: FUROSEMIDE 20 MG/2 ML INJECTION IVP ONE (10:30)
--- OUTSIDE RECORDS SUMMARY | 2017-06-21 10:54 | External Medical Summary | CCD ---
:1945 Author Name NATALI DANIELS Address [address], [place] [id number] Care Team Providers Name Role Phone LISA SMITH Attending Physician Unavailable LISA SMITH Er Physician 1 Unavailable Vital Signs Unknown or Not Available. Allergies Allergy Code Allergy Type Reaction Status IODINE 5933 Drug allergy Active Procedures Procedure Code Procedure Type Date CHEST [id number] 01/16/2016 History of Immunizations Immunization Code Date Pneumococcal conjugate PCV 13 133 10/25/2015 Problems Unknown or Not Available. Results CARDIAC PANEL - Collect Date/Time: 01/16/2016 13:08 Test Name Code Test Result Test Units Test Ref Range CKMB 0.4 ng/mL L=0.0 H=3.6 CPK 46 U/L L=26 H=308 CKMB% 0.9 % L=0.0 H=4.0 TROPONIN I <0.02 ng/mL L=0.00 H=0.05 COMP METABOLIC - Collect Date/Time: 01/16/2016 13:08 Test Name Code Test Result Test Units Test Ref Range GLUCOSE 90 mg/dL L=70 H=110 BUN 11 mg/dL L=7 H=18 CREATININE 0.63 mg/dL L=0.60 H=1.30 AGE 70 YEARS GFR 92.9 SODIUM 144 mmol/L L=136 H=145 POTASSIUM 4.3 mmol/L L=3.5 H=5.1 CHLORIDE 105 mmol/L L=98 H=107 CO2 35 mmol/L L=21 H=32 CALCIUM 8.8 mg/dL L=8.5 H=10.1 AST 25 U/L L=15 H=37 ALT 32 U/L L=12 H=78 ALKALINE PHOS 91 U/L L=50 H=136 TOTAL PROTEIN 6.6 g/dL L=6.4 H=8.2 ALBUMIN 3.2 g/dL L=3.4 H=5.0 TOTAL BILI 0.80 mg/dL L=0.00 H=1.00 LACTIC ACID - Collect Date/Time: 01/16/2016 13:08 Test Name Code Test Result Test Units Test Ref Range LACTIC ACID 0.9 mmol/L L=0.4 H=2.0 PRO B-TYPE NATRIURETIC PEPTIDE - Collect Date/Time: 01/16/2016 13:08 Test Name Code Test Result Test Units Test Ref Range PBNP 419 pg/mL L=0 H=125 CBC W/ DIFF - Collect Date/Time: 01/16/2016 12:35 Test Name Code Test Result Test Units Test Ref Range WBC 14.3 x10^3 L=4.8 H=10.8 RBC 5.01 x10^6 L=4.20 H=5.40 HEMOGLOBIN 14.8 g/dL L=12.0 H=16.0 HEMATOCRIT 46.1 % L=37.0 H=47.0 MCV 92 fL L=80 H=100 MCH 29.5 pg L=27.0 H=33.0 MCHC 32.1 g/dL L=33.0 H=37.0 RDW 14.1 % L=11.5 H=14.5 PLATELETS 246 x10^3 L=150 H=450 MPV 8.0 fL L=7.8 H=11.0 NEUTROPHILS 48.4 % L=40.0 H=80.0 LYMPHOCYTES 33.6 % L=20.0 H=45.0 MONOCYTES 6.9 % L=0.0 H=10.0 EOSINOPHILS 8.2 % L=0.0 H=5.0 BASOPHILS 2.9 % L=0.0 H=2.0 SEG 37 %% L=40 H=80 BAND 8 %% L=0 H=5 LYMPH 18 %% L=20 H=45 MONO 14 %% L=0 H=10 EOS 12 %% L=0 H=5 BASO 0 %% L=0 H=2 ATYP LYMPH 11 %% L=0 H=10 META 0 %% L=0 H=1 REFLEX MAN DIFF YES N/A RBC MORPHOLOGY NORMAL N/A D-DIMER, QUANTITATIVE - Collect Date/Time: 01/16/2016 12:35 Test Name Code Test Result Test Units Test Ref Range D-DIMER, QUANT 632 ng/mL L=0 H=400 PT/INR - Collect Date/Time: 01/16/2016 13:08 Test Name Code Test Result Test Units Test Ref Range PT 9.8 Secs L=9.2 H=10.8 INR 0.98 L=0.00 H=4.00 PTT - Collect Date/Time: 01/16/2016 13:08 Test Name Code Test Result Test Units Test Ref Range PTT 25.9 Secs L=22.0 H=30.0 INFLUENZA A & B, MOLECULAR - Collect Date/Time: 01/16/2016 12:25 Test Name Code Test Result Test Units Test Ref Range INFLUENZA A NEGATIVE N/A NORMAL: NEGATIVE INFLUENZA B NEGATIVE N/A NORMAL: NEGATIVE RAPID STREP - Collect Date/Time: 01/16/2016 12:25 Test Name Code Test Result Test Units Test Ref Range RAPID STREP POSITIVE N/A NORMAL: NEGATIVE UA AUTO W/ MICRO - Collect Date/Time: 01/16/2016 14:05 Test Name Code Test Result Test Units Test Ref Range COLOR Yellow N/A NORMAL: Yellow APPEARANCE Sl [place] N/A NORMAL: Clear GLUCOSE Negative N/A NORMAL: Negative BILIRUBIN Small N/A NORMAL: Negative KETONE Negative N/A NORMAL: Negative SPEC GRAVITY 1.025 N/A NORMAL: 1.005-1.030 BLOOD Negative N/A NORMAL: Negative PROTEIN Trace N/A NORMAL: Negative PH 5.0 N/A NORMAL: 5.0-8.0 UROBILINOGEN 0.2 N/A NORMAL: Negative NITRITE Negative N/A NORMAL: Negative LEUKOCYTES Small N/A NORMAL: Negative MICRO RBC 0-2 N/A NORMAL: 0-2 MICRO WBC 2-5 N/A NORMAL: 0-2 BACTERIA 1+ N/A NORMAL: None-Trace EPI CELLS >30 N/A NORMAL: 0-15 MUCUS Large N/A NORMAL: None-Small AMORPHOUS None Seen N/A NORMAL: None Seen YEAST None Seen N/A NORMAL: None Seen CRYSTALS None Seen N/A NORMAL: None Seen CAST None Seen N/A NORMAL: None Seen URINE CULTURE? NO N/A Active Medications Unknown or Not Available. Medications Administered During Visit Unknown or Not Available. Encounters Encounter Diagnosis Diagnosis Code Start Date Pneumonia, unspecified organism J189 01/16/2016 Social History Smoking Status Code Start Date End Date Never smoker [id number] Patient Decision Aids Unknown or Not Available. Discharge Instructions You were admitted to [facility] on 01/16/2016 11:16 with a principal diagnosis of Pneumonia, unspecified organism You had the following tests done: CARDIAC PANEL CBC W/ DIFF COMP METABOLIC D-DIMER, QUANTITATIVE INFLUENZA A & B, MOLECULAR LACTIC ACID PRO B-TYPE NATRIURETIC PEPTIDE PT/INR PTT RAPID STREP UA AUTO W/ MICRO You were discharged from [facility] on 01/16/2016 14:03 Should you have any questions prior to discharge, please contact a member of your healthcare team. If you have left the hospital and have any questions, please contact your primary care physician. Chief Complaint and Reason For Visit Chief Complaint Date of Onset DIFFICULTY BREATHING Function Status Unknown or Not Available. Plan of Care Unknown or Not Available. Referral/Transition of Care Unknown or Not Available.
--- OUTSIDE RECORDS SUMMARY | 2017-06-21 10:54 | External Medical Summary | CCD ---
:1945 Author Name NATALI DANIELS Address [address], [place] [id number] Care Team Providers Name Role Phone CHANTALE PARK Attending Physician Unavailable Vital Signs Unknown or Not Available. Allergies Allergy Code Allergy Type Reaction Status IODINE 5933 Drug allergy Active Procedures Unknown or Not Available. History of Immunizations Immunization Code Date Pneumococcal conjugate PCV 13 133 10/25/2015 Problems Unknown or Not Available. Results CULTURE URINE - Collect Date/Time: 05/08/2016 14:45 Test Name Code Test Result Test Units Test Ref Range SPEC SOURCE: RANDOM N/A Urine Culture, 630-4 Final report N/A Routine Active Medications Medication Code Dose Units Frequency Route Modification Start Date/Time Levaquin 909675 500 MILLIGRAMS DAILY BY 01/20/2016 500MG Oral MOUTH 13:44 Tablet Prescription Detail TAKE 500 MILLIGRAMS BY MOUTH DAILY FOR 7 DAYS Advair Diskus 250/50 425096 1 EACH TWICE A INHALATION 01/20/2016 0.25MG-0.05MG/1INH DAY 13:43 Inhalation Disk Prescription Detail 1 EACH INHALATION TWICE A DAY Albuterol 573455 1 EACH EVERY 4 INHALATION 01/20/2016 Sulfate HRS PRN 13:43 1.25MG/3ML Inhalation Solution Prescription Detail 1 EACH INHALATION EVERY 4 HRS PRN Aspirin 81MG 279225 81 MILLIGRAMS DAILY ORAL 01/20/2016 Oral Tablet, 13:43 Enteric Coated Prescription Detail 81 MILLIGRAMS ORAL DAILY Benadryl 6865918 25 MILLIGRAMS EVERY 4 ORAL 01/20/2016 Allergy 25MG HRS PRN 13:43 Oral Tablet Prescription Detail 25 MILLIGRAMS ORAL EVERY 4 HRS PRN Calcium 600 678710 600 MG DAILY ORAL 01/20/2016 13:43 MG Oral Tablet Prescription Detail 600 MG ORAL DAILY Ibuprofen 642594 400 MILLIGRAMS AM AND ORAL 01/20/2016 200MG Oral PRN 13:43 Tablet Prescription Detail 400 MILLIGRAMS ORAL AM AND PRN Levothyroxine 50MCG 282322 50 MCG DAILY ORAL 01/20/2016 Oral Tablet 13:43 Prescription Detail 50 MCG ORAL DAILY Lisinopril 20MG 967907 20 MILLIGRAMS DAILY ORAL 01/20/2016 Oral Tablet 13:43 Prescription Detail 20 MILLIGRAMS ORAL DAILY MAGNESIUM 0 400 MILLIGRAMS DAILY BY MOUTH 01/20/2016 13:43 Prescription Detail TAKE 400 MILLIGRAMS BY MOUTH DAILY Meloxicam 15MG 338971 15 MILLIGRAMS AT BEDTIME ORAL 01/20/2016 Oral Tablet 13:43 Prescription Detail 15 MILLIGRAMS ORAL AT BEDTIME Multi-Day Oral [id number] 1 EACH DAILY ORAL 01/20/2016 Tablet 13:43 Prescription Detail 1 EACH ORAL DAILY [place] 5MG-325MG 390138 1 EACH EVERY 4 HRS ORAL 01/20/2016 Oral Tablet PRN 13:43 Prescription Detail 1 EACH ORAL EVERY 4 HRS PRN Potassium 99 MG 030878 99 MG DAILY ORAL 01/20/2016 Oral Tablet 13:43 Prescription Detail 99 MG ORAL DAILY Triamterene/Hydrochlorothiazide 603472 1 EACH DAILY ORAL 01/20/2016 37.5MG-25MG Oral Tablet 13:43 Prescription Detail 1 EACH ORAL DAILY Ventolin HFA 505765 2 Puffs EVERY 4 INHALATION 01/20/2016 0.09MG/1INH HRS PRN 13:43 Inhalation Aerosol Powder Prescription Detail 2 Puffs INHALATION EVERY 4 HRS PRN VITAMIN B12 0 DAILY BY MOUTH 01/20/2016 13:43 Prescription Detail TAKE BY MOUTH DAILY VITAMIN B6 0 DAILY BY MOUTH 01/20/2016 13:43 Prescription Detail TAKE BY MOUTH DAILY VITAMIN E 0 DAILY BY MOUTH 01/20/2016 13:43 Prescription Detail TAKE BY MOUTH DAILY Medications Administered During Visit Unknown or Not Available. Encounters Encounter Diagnosis Diagnosis Code Start Date Urinary tract infection, site N390 05/08/2016 not specified Social History Smoking Status Code Start Date End Date Never smoker [id number] Patient Decision Aids Unknown or Not Available. Discharge Instructions You were admitted to [facility] on 05/08/2016 14:46 with a principal diagnosis of Urinary tract infection, site not specified You had the following tests done: CULTURE URINE You were discharged from [facility] on 05/08/2016 14:46 Should you have any questions prior to discharge, please contact a member of your healthcare team. If you have left the hospital and have any questions, please contact your primary care physician. Chief Complaint and Reason For Visit Chief Complaint Date of Onset LAB Function Status Unknown or Not Available. Plan of Care Unknown or Not Available. Referral/Transition of Care Unknown or Not Available.
--- OUTSIDE RECORDS SUMMARY | 2017-06-21 10:54 | External Medical Summary | CCD ---
:1945 Author Name JENI KRUEGER Address [address], [place] [id number] Care Team Providers Name Role Phone CHANTALE PARK Attending Physician Unavailable Vital Signs Unknown or Not Available. Allergies Allergy Code Allergy Type Reaction Status IODINE 5933 Drug allergy Active Procedures Unknown or Not Available. History of Immunizations Unknown or Not Available. Problems Unknown or Not Available. Results COMP METABOLIC - Collect Date/Time: 02/15/2015 10:20 Test Name Code Test Result Test Units Test Ref Range GLUCOSE 125 mg/dL L=70 H=110 BUN 10 mg/dL L=7 H=18 CREATININE 0.70 mg/dL L=0.60 H=1.30 AGE 69 YEARS GFR 87.7 SODIUM 140 mmol/L L=136 H=145 POTASSIUM 4.9 mmol/L L=3.5 H=5.1 CHLORIDE 104 mmol/L L=98 H=107 CO2 28 mmol/L L=21 H=32 CALCIUM 9.4 mg/dL L=8.5 H=10.1 AST 41 U/L L=15 H=37 ALT 32 U/L L=12 H=78 ALKALINE PHOS 103 U/L L=50 H=136 TOTAL PROTEIN 7.4 g/dL L=6.4 H=8.2 ALBUMIN 3.1 g/dL L=3.4 H=5.0 TOTAL BILI 0.90 mg/dL L=0.00 H=1.00 PRO B-TYPE NATRIURETIC PEPTIDE - Collect Date/Time: 02/15/2015 10:20 Test Name Code Test Result Test Units Test Ref Range PBNP 230 pg/mL L=0 H=125 TSH - Collect Date/Time: 02/15/2015 10:20 Test Name Code Test Result Test Units Test Ref Range TSH 1.12 uIU/mL L=0.36 H=3.74 CBC W/ DIFF - Collect Date/Time: 02/15/2015 10:20 Test Name Code Test Result Test Units Test Ref Range WBC 11.0 x10^3 L=4.8 H=10.8 RBC 4.70 x10^6 L=4.20 H=5.40 HEMOGLOBIN 14.7 g/dL L=12.0 H=16.0 HEMATOCRIT 45.4 % L=37.0 H=47.0 MCV 97 fL L=80 H=100 MCH 31.3 pg L=27.0 H=33.0 MCHC 32.5 g/dL L=33.0 H=37.0 RDW 14.3 % L=11.5 H=14.5 PLATELETS 299 x10^3 L=150 H=450 MPV 7.5 fL L=7.8 H=11.0 NEUTROPHILS 69.0 % L=40.0 H=80.0 LYMPHOCYTES 21.7 % L=20.0 H=45.0 MONOCYTES 5.6 % L=0.0 H=10.0 EOSINOPHILS 3.5 % L=0.0 H=5.0 BASOPHILS 0.2 % L=0.0 H=2.0 REFLEX MAN DIFF NO N/A Active Medications Unknown or Not Available. Medications Administered During Visit Unknown or Not Available. Encounters Unknown or Not Available. Social History Smoking Status Code Start Date End Date Never smoker [id number] Patient Decision Aids Unknown or Not Available. Discharge Instructions You were admitted to [facility] on 02/15/2015. You were discharged from [facility] on 02/15/2015. Should you have any questions prior to discharge, please contact a member of your healthcare team. If you have left the hospital and have any questions, please contact your primary care physician. Chief Complaint and Reason For Visit Unknown or Not Available. Function Status Unknown or Not Available. Plan of Care Unknown or Not Available. Referral/Transition of Care Unknown or Not Available.
--- OUTSIDE RECORDS SUMMARY | 2017-06-21 10:54 | External Medical Summary | CCD ---
:1945 Author Name NATALI DANIELS Address [address], [place] [id number] Care Team Providers Name Role Phone SUSAN NAGY Attending Physician Unavailable Vital Signs Unknown or Not Available. Allergies Allergy Code Allergy Type Reaction Status IODINE 5933 Drug allergy Active Procedures Procedure Code Procedure Type Date CHEST [id number] 04/24/2016 History of Immunizations Immunization Code Date Pneumococcal conjugate PCV 13 133 10/25/2015 Problems Unknown or Not Available. Results CBC W/ DIFF - Collect Date/Time: 04/24/2016 11:43 Test Name Code Test Result Test Units Test Ref Range WBC 11.3 x10^3 L=4.8 H=10.8 RBC 4.60 x10^6 L=4.20 H=5.40 HEMOGLOBIN 14.0 g/dL L=12.0 H=16.0 HEMATOCRIT 42.7 % L=37.0 H=47.0 MCV 93 fL L=80 H=100 MCH 30.3 pg L=27.0 H=33.0 MCHC 32.7 g/dL L=33.0 H=37.0 RDW 13.2 % L=11.5 H=14.5 PLATELETS 349 x10^3 L=150 H=450 MPV 8.0 fL L=7.8 H=11.0 NEUTROPHILS 71.1 % L=40.0 H=80.0 LYMPHOCYTES 18.6 % L=20.0 H=45.0 MONOCYTES 5.6 % L=0.0 H=10.0 EOSINOPHILS 4.4 % L=0.0 H=5.0 BASOPHILS 0.3 % L=0.0 H=2.0 REFLEX MAN DIFF NO N/A Active Medications Medication Code Dose Units Frequency Route Modification Start Date/Time Levaquin 421917 500 MILLIGRAMS DAILY BY 01/20/2016 500MG Oral MOUTH 13:44 Tablet Prescription Detail TAKE 500 MILLIGRAMS BY MOUTH DAILY FOR 7 DAYS Advair Diskus 250/50 657427 1 EACH TWICE A INHALATION 01/20/2016 0.25MG-0.05MG/1INH DAY 13:43 Inhalation Disk Prescription Detail 1 EACH INHALATION TWICE A DAY Albuterol 165293 1 EACH EVERY 4 INHALATION 01/20/2016 Sulfate HRS PRN 13:43 1.25MG/3ML Inhalation Solution Prescription Detail 1 EACH INHALATION EVERY 4 HRS PRN Aspirin 81MG 507000 81 MILLIGRAMS DAILY ORAL 01/20/2016 Oral Tablet, 13:43 Enteric Coated Prescription Detail 81 MILLIGRAMS ORAL DAILY Benadryl 3665664 25 MILLIGRAMS EVERY 4 ORAL 01/20/2016 Allergy 25MG HRS PRN 13:43 Oral Tablet Prescription Detail 25 MILLIGRAMS ORAL EVERY 4 HRS PRN Calcium 600 519347 600 MG DAILY ORAL 01/20/2016 13:43 MG Oral Tablet Prescription Detail 600 MG ORAL DAILY Ibuprofen 431770 400 MILLIGRAMS AM AND ORAL 01/20/2016 200MG Oral PRN 13:43 Tablet Prescription Detail 400 MILLIGRAMS ORAL AM AND PRN Levothyroxine 50MCG 770558 50 MCG DAILY ORAL 01/20/2016 Oral Tablet 13:43 Prescription Detail 50 MCG ORAL DAILY Lisinopril 20MG 126231 20 MILLIGRAMS DAILY ORAL 01/20/2016 Oral Tablet 13:43 Prescription Detail 20 MILLIGRAMS ORAL DAILY MAGNESIUM 0 400 MILLIGRAMS DAILY BY MOUTH 01/20/2016 13:43 Prescription Detail TAKE 400 MILLIGRAMS BY MOUTH DAILY Meloxicam 15MG 950131 15 MILLIGRAMS AT BEDTIME ORAL 01/20/2016 Oral Tablet 13:43 Prescription Detail 15 MILLIGRAMS ORAL AT BEDTIME Multi-Day Oral [id number] 1 EACH DAILY ORAL 01/20/2016 Tablet 13:43 Prescription Detail 1 EACH ORAL DAILY [place] 5MG-325MG 915563 1 EACH EVERY 4 HRS ORAL 01/20/2016 Oral Tablet PRN 13:43 Prescription Detail 1 EACH ORAL EVERY 4 HRS PRN Potassium 99 MG 720937 99 MG DAILY ORAL 01/20/2016 Oral Tablet 13:43 Prescription Detail 99 MG ORAL DAILY Triamterene/Hydrochlorothiazide 002353 1 EACH DAILY ORAL 01/20/2016 37.5MG-25MG Oral Tablet 13:43 Prescription Detail 1 EACH ORAL DAILY Ventolin HFA 730213 2 Puffs EVERY 4 INHALATION 01/20/2016 0.09MG/1INH [...] Encounters Encounter Diagnosis Diagnosis Code Start Date Fever, unspecified R509 04/24/2016 Social History Smoking Status Code Start Date End Date Never smoker [id number] Patient Decision Aids Unknown or Not Available. Discharge Instructions You were admitted to [facility]; [facility] on 04/24/2016 11:12 with a principal diagnosis of Fever, unspecified You had the following tests done: CBC W/ DIFF You were discharged from [facility] on 04/24/2016 11:12 Should you have any questions prior to discharge, please contact a member of your healthcare team. If you have left the hospital and have any questions, please contact your primary care physician. Chief Complaint and Reason For Visit Chief Complaint Date of Onset LAB XR CHEST Function Status Unknown or Not Available. Plan of Care Unknown or Not Available. Referral/Transition of Care Unknown or Not Available.
--- OUTSIDE RECORDS SUMMARY | 2017-06-21 10:54 | External Medical Summary | CCD ---
:1945 Author Name NATALI DANIELS Address [address] [place] [address], [place] [id number] Care Team Providers Name Role Phone MCKAYLA ORDOÑEZ Attending Physician Unavailable Vital Signs Unknown or Not Available. Allergies Allergy Code Allergy Type Reaction Status IODINE 5933 Drug allergy Active Procedures Unknown or Not Available. History of Immunizations Immunization Code Date Pneumococcal conjugate PCV 13 133 10/25/2015 Problems Unknown or Not Available. Results Unknown or Not Available. Active Medications Medication Code Dose Units Frequency Route Modification Start Date/Time Levaquin 146386 500 MILLIGRAMS DAILY BY 01/20/2016 500MG Oral MOUTH 13:44 Tablet Prescription Detail TAKE 500 MILLIGRAMS BY MOUTH DAILY FOR 7 DAYS Advair Diskus 250/50 229753 1 EACH TWICE A INHALATION 01/20/2016 0.25MG-0.05MG/1INH DAY 13:43 Inhalation Disk Prescription Detail 1 EACH INHALATION TWICE A DAY Albuterol 060091 1 EACH EVERY 4 INHALATION 01/20/2016 Sulfate HRS PRN 13:43 1.25MG/3ML Inhalation Solution Prescription Detail 1 EACH INHALATION EVERY 4 HRS PRN Aspirin 81MG 459433 81 MILLIGRAMS DAILY ORAL 01/20/2016 Oral Tablet, 13:43 Enteric Coated Prescription Detail 81 MILLIGRAMS ORAL DAILY Benadryl 5137213 25 MILLIGRAMS EVERY 4 ORAL 01/20/2016 Allergy 25MG HRS PRN 13:43 Oral Tablet Prescription Detail 25 MILLIGRAMS ORAL EVERY 4 HRS PRN Calcium 600 923158 600 MG DAILY ORAL 01/20/2016 13:43 MG Oral Tablet Prescription Detail 600 MG ORAL DAILY Ibuprofen 665348 400 MILLIGRAMS AM AND ORAL 01/20/2016 200MG Oral PRN 13:43 Tablet Prescription Detail 400 MILLIGRAMS ORAL AM AND PRN Levothyroxine 50MCG 791476 50 MCG DAILY ORAL 01/20/2016 Oral Tablet 13:43 Prescription Detail 50 MCG ORAL DAILY Lisinopril 20MG 034343 20 MILLIGRAMS DAILY ORAL 01/20/2016 Oral Tablet 13:43 Prescription Detail 20 MILLIGRAMS ORAL DAILY MAGNESIUM 0 400 MILLIGRAMS DAILY BY MOUTH 01/20/2016 13:43 Prescription Detail TAKE 400 MILLIGRAMS BY MOUTH DAILY Meloxicam 15MG 857698 15 MILLIGRAMS AT BEDTIME ORAL 01/20/2016 Oral Tablet 13:43 Prescription Detail 15 MILLIGRAMS ORAL AT BEDTIME Multi-Day Oral 81718127918 1 EACH DAILY ORAL 01/20/2016 Tablet 13:43 Prescription Detail 1 EACH ORAL DAILY [place] 5MG-325MG 852655 1 EACH EVERY 4 HRS ORAL 01/20/2016 Oral Tablet PRN 13:43 Prescription Detail 1 EACH ORAL EVERY 4 HRS PRN Potassium 99 MG 681271 99 MG DAILY ORAL 01/20/2016 Oral Tablet 13:43 Prescription Detail 99 MG ORAL DAILY Triamterene/Hydrochlorothiazide 189752 1 EACH DAILY ORAL 01/20/2016 37.5MG-25MG Oral Tablet 13:43 Prescription Detail 1 EACH ORAL DAILY Ventolin HFA 326011 2 Puffs EVERY 4 INHALATION 01/20/2016 0.09MG/1INH [...] Encounters Encounter Diagnosis Diagnosis Code Start Date Low back pain M545 09/04/2016 Social History Smoking Status Code Start Date End Date Never smoker [id number] Patient Decision Aids Unknown or Not Available. Discharge Instructions You were admitted to [facility] on 09/04/2016 13:45 with a principal diagnosis of Low back pain You were discharged from [facility] on 09/04/2016 13:45 Should you have any questions prior to discharge, please contact a member of your healthcare team. If you have left the hospital and have any questions, please contact your primary care physician. Chief Complaint and Reason For Visit Chief Complaint Date of Onset XRAY Function Status Unknown or Not Available. Plan of Care Unknown or Not Available. Referral/Transition of Care Unknown or Not Available.
--- OUTSIDE RECORDS SUMMARY | 2017-06-21 10:55 | External Medical Summary | CCD ---
:1945 Author Name HERIBERTO ISAAC Address [address] [facility] Unavailable [place], [place] [phone] Care Team Providers Name Role Phone CHANTALE PARK Attending Physician Unavailable Vital Signs Unknown or Not Available. Allergies Allergy Code Allergy Type Reaction Status IODINE 5933 Drug allergy Active Procedures Unknown or Not Available. History of Immunizations Unknown or Not Available. Problems Unknown or Not Available. Results Unknown or Not Available. Active Medications Unknown or Not Available. Medications Administered During Visit Unknown or Not Available. Encounters Encounter Diagnosis Diagnosis Code Start Date ABN URINE FINDINGS NEC 7919 05/10/2015 Social History Smoking Status Code Start Date End Date Never smoker [id number] Patient Decision Aids Unknown or Not Available. Discharge Instructions You were admitted to [facility] on with a principal diagnosis of ABN URINE FINDINGS NEC. You were discharged from [facility] on 05/10/2015. Should you have any questions prior to discharge, please contact a member of your healthcare team. If you have left the hospital and have any questions, please contact your primary care physician. Chief Complaint and Reason For Visit Chief Complaint Date of Onset XR LT KNEE LT TIBULA/FIBULA/LAB Function Status Unknown or Not Available. Plan of Care Unknown or Not Available. Referral/Transition of Care Unknown or Not Available.
--- OUTSIDE RECORDS SUMMARY | 2017-06-21 10:55 | External Medical Summary | CCD ---
:1945 Author Name NTAALI DANIELS Address [address], [place] [phone] Care Team Providers Name Role Phone SUSAN NAGY Attending Physician Unavailable Vital Signs Unknown or Not Available. Allergies Allergy Code Allergy Type Reaction Status IODINE 5933 Drug allergy Active Procedures Unknown or Not Available. History of Immunizations Immunization Code Date Pneumococcal conjugate PCV 13 133 10/25/2015 Problems Unknown or Not Available. Results HGB A1C - Collect Date/Time: 02/28/2016 12:00 Test Name Code Test Result Test Units Test Ref Range HGB A1C 6.7 % L=4.5 H=6.2 eAG 146 mg/dL CULTURE URINE - Collect Date/Time: 02/28/2016 11:15 Test Name Code Test Result Test Units Test Ref Range SPEC SOURCE: CLEAN CATCH N/A Urine Culture, 630-4 Final report N/A Routine Active Medications Medication Code Dose Units Frequency Route Modification Start Date/Time Levaquin 034536 500 MILLIGRAMS DAILY BY 01/20/2016 500MG Oral MOUTH 13:44 Tablet Prescription Detail TAKE 500 MILLIGRAMS BY MOUTH DAILY FOR 7 DAYS Advair Diskus 250/50 043150 1 EACH TWICE A INHALATION 01/20/2016 0.25MG-0.05MG/1INH DAY 13:43 Inhalation Disk Prescription Detail 1 EACH INHALATION TWICE A DAY Albuterol 225744 1 EACH EVERY 4 INHALATION 01/20/2016 Sulfate HRS PRN 13:43 1.25MG/3ML Inhalation Solution Prescription Detail 1 EACH INHALATION EVERY 4 HRS PRN Aspirin 81MG 131593 81 MILLIGRAMS DAILY ORAL 01/20/2016 Oral Tablet, 13:43 Enteric Coated Prescription Detail 81 MILLIGRAMS ORAL DAILY Benadryl 1822396 25 MILLIGRAMS EVERY 4 ORAL 01/20/2016 Allergy 25MG HRS PRN 13:43 Oral Tablet Prescription Detail 25 MILLIGRAMS ORAL EVERY 4 HRS PRN Calcium 600 980956 600 MG DAILY ORAL 01/20/2016 13:43 MG Oral Tablet Prescription Detail 600 MG ORAL DAILY Ibuprofen 340942 400 MILLIGRAMS AM AND ORAL 01/20/2016 200MG Oral PRN 13:43 Tablet Prescription Detail 400 MILLIGRAMS ORAL AM AND PRN Levothyroxine 50MCG 770557 50 MCG DAILY ORAL 01/20/2016 Oral Tablet 13:43 Prescription Detail 50 MCG ORAL DAILY Lisinopril 20MG 133802 20 MILLIGRAMS DAILY ORAL 01/20/2016 Oral Tablet 13:43 Prescription Detail 20 MILLIGRAMS ORAL DAILY MAGNESIUM 0 400 MILLIGRAMS DAILY BY MOUTH 01/20/2016 13:43 Prescription Detail TAKE 400 MILLIGRAMS BY MOUTH DAILY Meloxicam 15MG 546091 15 MILLIGRAMS AT BEDTIME ORAL 01/20/2016 Oral Tablet 13:43 Prescription Detail 15 MILLIGRAMS ORAL AT BEDTIME Multi-Day Oral 13884724520 1 EACH DAILY ORAL 01/20/2016 Tablet 13:43 Prescription Detail 1 EACH ORAL DAILY [place] 5MG-325MG 660835 1 EACH EVERY 4 HRS ORAL 01/20/2016 Oral Tablet PRN 13:43 Prescription Detail 1 EACH ORAL EVERY 4 HRS PRN Potassium 99 MG 609860 99 MG DAILY ORAL 01/20/2016 Oral Tablet 13:43 Prescription Detail 99 MG ORAL DAILY Triamterene/Hydrochlorothiazide 784950 1 EACH DAILY ORAL 01/20/2016 37.5MG-25MG Oral Tablet 13:43 Prescription Detail 1 EACH ORAL DAILY Ventolin HFA 251394 2 Puffs EVERY 4 INHALATION 01/20/2016 0.09MG/1INH [...] Encounters Encounter Diagnosis Diagnosis Code Start Date Type 2 diabetes mellitus without E119 02/28/2016 complications Social History Smoking Status Code Start Date End Date Never smoker [id number] Patient Decision Aids Unknown or Not Available. Discharge Instructions You were admitted to [facility] on 02/28/2016 11:33 with a principal diagnosis of Type 2 diabetes mellitus without complications You had the following tests done: CULTURE URINE HGB A1C You were discharged from [facility] on 02/28/2016 11:33 Should you have any questions prior to [...]
--- OUTSIDE RECORDS SUMMARY | 2017-06-21 10:55 | External Medical Summary | CCD ---
:1945 Author Name NATALI DANIELS Address [address] [place], [place] [phone] Care Team Providers Name Role Phone THOMAS MATTHEWS MD Attending Physician Unavailable Vital Signs Unknown or Not Available. Allergies Allergy Code Allergy Type Reaction Status IODINE 5933 Drug allergy Active Procedures Unknown or Not Available. History of Immunizations Unknown or Not Available. Problems Unknown or Not Available. Results BASIC METABOLIC - Collect Date/Time: 10/09/2015 13:45 Test Name Code Test Result Test Units Test Ref Range GLUCOSE 95 mg/dL L=70 H=110 BUN 11 mg/dL L=7 H=18 CREATININE 0.80 mg/dL L=0.60 H=1.30 AGE 69 YEARS GFR 75.2 SODIUM 141 mmol/L L=136 H=145 POTASSIUM 4.4 mmol/L L=3.5 H=5.1 CHLORIDE 103 mmol/L L=98 H=107 CO2 34 mmol/L L=21 H=32 CALCIUM 9.2 mg/dL L=8.5 H=10.1 MAGNESIUM - Collect Date/Time: 10/09/2015 13:45 Test Name Code Test Result Test Units Test Ref Range MAGNESIUM 1.6 mg/dL L=1.8 H=2.4 TSH - Collect Date/Time: 10/09/2015 13:45 Test Name Code Test Result Test Units Test Ref Range TSH 1.08 uIU/mL L=0.36 H=3.74 UA AUTO W/ MICRO - Collect Date/Time: 10/09/2015 13:51 Test Name Code Test Result Test Units Test Ref Range COLOR Yellow N/A NORMAL: Yellow APPEARANCE SlCloudy N/A NORMAL: Clear GLUCOSE Negative N/A NORMAL: Negative BILIRUBIN Small N/A NORMAL: Negative KETONE Negative N/A NORMAL: Negative SPEC GRAVITY 1.020 N/A NORMAL: 1.005-1.030 BLOOD Negative N/A NORMAL: Negative PROTEIN Negative N/A NORMAL: Negative PH 7.0 N/A NORMAL: 5.0-8.0 UROBILINOGEN 0.2 N/A NORMAL: Negative NITRITE Negative N/A NORMAL: Negative LEUKOCYTES Trace N/A NORMAL: Negative MICRO RBC 0-2 N/A NORMAL: 0-2 MICRO WBC 2-5 N/A NORMAL: 0-2 BACTERIA 1+ N/A NORMAL: None-Trace EPI CELLS 15-30 N/A NORMAL: 0-15 MUCUS Large N/A NORMAL: None-Small AMORPHOUS None Seen N/A NORMAL: None Seen YEAST None Seen N/A NORMAL: None Seen CRYSTALS None Seen N/A NORMAL: None Seen CAST None Seen N/A NORMAL: None Seen URINE CULTURE? NO N/A Active Medications Unknown or Not Available. Medications Administered During Visit Unknown or Not Available. Encounters Encounter Diagnosis Diagnosis Code Start Date Myalgia M791 10/09/2015 Social History Smoking Status Code Start Date End Date Never smoker [id number] Patient Decision Aids Unknown or Not Available. Discharge Instructions You were admitted to [facility] on with a principal diagnosis of Myalgia. You were discharged from [facility] on 10/09/2015. Should you have any questions prior to [...]
--- OUTSIDE RECORDS SUMMARY | 2017-06-21 10:55 | External Medical Summary | CCD ---
:1945 Author Name NATALI DANIELS Address [address] [place], [place] [phone] Care Team Providers Name Role Phone CHANTALE PARK Attending Physician Unavailable Vital Signs Unknown or Not Available. Allergies Allergy Code Allergy Type Reaction Status IODINE 5933 Drug allergy Active Procedures Unknown or Not Available. History of Immunizations Unknown or Not Available. Problems Unknown or Not Available. Results BASIC METABOLIC - Collect Date/Time: 12/30/2015 17:06 Test Name Code Test Result Test Units Test Ref Range GLUCOSE 126 mg/dL L=70 H=110 BUN 24 mg/dL L=7 H=18 CREATININE 0.86 mg/dL L=0.60 H=1.30 AGE 70 YEARS GFR 64.9 SODIUM 144 mmol/L L=136 H=145 POTASSIUM 4.3 mmol/L L=3.5 H=5.1 CHLORIDE 104 mmol/L L=98 H=107 CO2 36 mmol/L L=21 H=32 CALCIUM 9.1 mg/dL L=8.5 H=10.1 MAGNESIUM - Collect Date/Time: 12/30/2015 17:06 Test Name Code Test Result Test Units Test Ref Range MAGNESIUM 1.9 mg/dL L=1.8 H=2.4 Active Medications Unknown or Not Available. Medications Administered During Visit Unknown or Not Available. Encounters Encounter Diagnosis Diagnosis Code Start Date Hypomagnesemia E8342 12/30/2015 Social History Smoking Status Code Start Date End Date Never smoker [id number] Patient Decision Aids Unknown or Not Available. Discharge Instructions You were admitted to [facility] on 12/30/2015 16:43 with a principal diagnosis of Hypomagnesemia You had the following tests done: BASIC METABOLIC MAGNESIUM You were discharged from [facility] on 12/30/2015 16:43 Should you have any questions prior to [...]
--- OUTSIDE RECORDS SUMMARY | 2017-06-21 10:55 | External Medical Summary | CCD ---
:1945 Author Name NATALI DANIELS Address [address] [facility] Unavailable [place], [place] [phone] Care Team Providers Name Role Phone KRISHNA COHEN Attending Physician Unavailable Vital Signs Unknown or Not Available. Allergies Allergy Code Allergy Type Reaction Status IODINE 5933 Drug allergy Active Procedures Unknown or Not Available. History of Immunizations Immunization Code Date Pneumococcal conjugate PCV 13 133 10/25/2015 Problems Unknown or Not Available. Results COMP METABOLIC - Collect Date/Time: 12/04/2016 11:55 Test Name Code Test Result Test Units Test Ref Range GLUCOSE 171 mg/dL L=70 H=110 BUN 15 mg/dL L=7 H=18 CREATININE 0.85 mg/dL L=0.60 H=1.30 AGE 70 YEARS GFR 65.7 L=60.0 H=120 SODIUM 141 mmol/L L=136 H=145 POTASSIUM 3.9 mmol/L L=3.5 H=5.1 CHLORIDE 103 mmol/L L=98 H=107 CO2 35 mmol/L L=21 H=32 CALCIUM 8.9 mg/dL L=8.5 H=10.1 AST 28 U/L L=15 H=37 ALT 35 U/L L=12 H=78 ALKALINE PHOS 90 U/L L=50 H=136 TOTAL PROTEIN 7.1 g/dL L=6.4 H=8.2 ALBUMIN 3.4 g/dL L=3.4 H=5.0 TOTAL BILI 1.00 mg/dL L=0.00 H=1.00 MAGNESIUM - Collect Date/Time: 12/04/2016 11:55 Test Name Code Test Result Test Units Test Ref Range MAGNESIUM 1.6 mg/dL L=1.8 H=2.4 TROPONIN I (QUANT) - Collect Date/Time: 12/04/2016 11:55 Test Name Code Test Result Test Units Test Ref Range TROPONIN I <0.02 ng/mL L=0.00 H=0.05 CBC W/ DIFF - Collect Date/Time: 12/04/2016 11:55 Test Name Code Test Result Test Units Test Ref Range WBC 10.1 x10^3 L=4.8 H=10.8 RBC 5.32 x10^6 L=4.20 H=5.40 HEMOGLOBIN 15.8 g/dL L=12.0 H=16.0 HEMATOCRIT 48.7 % L=37.0 H=47.0 MCV 92 fL L=80 H=100 MCH 29.8 pg L=27.0 H=33.0 MCHC 32.5 g/dL L=33.0 H=37.0 RDW 14.1 % L=11.5 H=14.5 PLATELETS 309 x10^3 L=150 H=450 MPV 8.6 fL L=7.8 H=11.0 NEUTROPHILS 62.3 % L=40.0 H=80.0 LYMPHOCYTES 26.2 % L=20.0 H=45.0 MONOCYTES 5.9 % L=0.0 H=10.0 EOSINOPHILS 5.6 % L=0.0 H=5.0 BASOPHILS 0.0 % L=0.0 H=2.0 REFLEX MAN DIFF NO N/A CLOSTRIDIUM DIFFICILE TOXIN A/B - Collect Date/Time: 12/04/2016 11:40 Test Name Code Test Result Test Units Test Ref Range C DIF TOX A/B NEGATIVE N/A NORMAL: NEGATIVE Active Medications Medication Code Dose Units Frequency Route Modification Start Date/Time Levaquin 651114 500 MILLIGRAMS DAILY BY 01/20/2016 500MG Oral MOUTH 13:44 Tablet Prescription Detail TAKE 500 MILLIGRAMS BY MOUTH DAILY FOR 7 DAYS Advair Diskus 250/50 201791 1 EACH TWICE A INHALATION 01/20/2016 0.25MG-0.05MG/1INH DAY 13:43 Inhalation Disk Prescription Detail 1 EACH INHALATION TWICE A DAY Albuterol 106361 1 EACH EVERY 4 INHALATION 01/20/2016 Sulfate HRS PRN 13:43 1.25MG/3ML Inhalation Solution Prescription Detail 1 EACH INHALATION EVERY 4 HRS PRN Aspirin 81MG 449828 81 MILLIGRAMS DAILY ORAL 01/20/2016 Oral Tablet, 13:43 Enteric Coated Prescription Detail 81 MILLIGRAMS ORAL DAILY Benadryl 2874823 25 MILLIGRAMS EVERY 4 ORAL 01/20/2016 Allergy 25MG HRS PRN 13:43 Oral Tablet Prescription Detail 25 MILLIGRAMS ORAL EVERY 4 HRS PRN Calcium 600 728756 600 MG DAILY ORAL 01/20/2016 13:43 MG Oral Tablet Prescription Detail 600 MG ORAL DAILY Ibuprofen 777751 400 MILLIGRAMS AM AND ORAL 01/20/2016 200MG Oral PRN 13:43 Tablet Prescription Detail 400 MILLIGRAMS ORAL AM AND PRN Levothyroxine 50MCG 927595 50 MCG DAILY ORAL 01/20/2016 Oral Tablet 13:43 Prescription Detail 50 MCG ORAL DAILY Lisinopril 20MG 858662 20 MILLIGRAMS DAILY ORAL 01/20/2016 Oral Tablet 13:43 Prescription Detail 20 MILLIGRAMS ORAL DAILY MAGNESIUM 0 400 MILLIGRAMS DAILY BY MOUTH 01/20/2016 13:43 Prescription Detail TAKE 400 MILLIGRAMS BY MOUTH DAILY Meloxicam 15MG 729473 15 MILLIGRAMS AT BEDTIME ORAL 01/20/2016 Oral Tablet 13:43 Prescription Detail 15 MILLIGRAMS ORAL AT BEDTIME Multi-Day Oral [id number] 1 EACH DAILY ORAL 01/20/2016 Tablet 13:43 Prescription Detail 1 EACH ORAL DAILY [place] 5MG-325MG 751024 1 EACH EVERY 4 HRS ORAL 01/20/2016 Oral Tablet PRN 13:43 Prescription Detail 1 EACH ORAL EVERY 4 HRS PRN Potassium 99 MG 594849 99 MG DAILY ORAL 01/20/2016 Oral Tablet 13:43 Prescription Detail 99 MG ORAL DAILY Triamterene/Hydrochlorothiazide 002755 1 EACH DAILY ORAL 01/20/2016 37.5MG-25MG Oral Tablet 13:43 Prescription Detail 1 EACH ORAL DAILY Ventolin HFA 895743 2 Puffs EVERY 4 INHALATION 01/20/2016 0.09MG/1INH [...] Encounters Encounter Diagnosis Diagnosis Code Start Date Shortness of breath R0602 12/04/2016 Social History Smoking Status Code Start Date End Date Never smoker [id number] Patient Decision Aids Unknown or Not Available. Discharge Instructions [facility] were admitted to [facility] on 12/04/2016 11:22 with a principal diagnosis of Shortness of breath You had the following tests done: CBC W/ DIFF CLOSTRIDIUM DIFFICILE TOXIN A/B COMP METABOLIC MAGNESIUM TROPONIN I (QUANT ) You were discharged from [facility] on 12/04/2016 11:22 Should you have any questions prior to [...]
--- OUTSIDE RECORDS SUMMARY | 2017-06-21 10:55 | External Medical Summary | CCD ---
:1945 Author Name NATALI DANIELS Address [address], [place] [id number] Care Team Providers Name Role Phone AZRA ACEVES Attending Physician Unavailable Vital Signs Unknown or Not Available. Allergies Allergy Code Allergy Type Reaction Status IODINE 5933 Drug allergy Active Procedures Procedure Code Procedure Type Date CHEST [id number] 07/07/2016 History of Immunizations Immunization Code Date Pneumococcal conjugate PCV 13 133 10/25/2015 Problems Unknown or Not Available. Results BASIC METABOLIC - Collect Date/Time: 07/07/2016 13:55 Test Name Code Test Result Test Units Test Ref Range GLUCOSE 119 mg/dL L=70 H=110 BUN 18 mg/dL L=7 H=18 CREATININE 0.75 mg/dL L=0.60 H=1.30 AGE 70 YEARS GFR 76.0 SODIUM 142 mmol/L L=136 H=145 POTASSIUM 3.7 mmol/L L=3.5 H=5.1 CHLORIDE 103 mmol/L L=98 H=107 CO2 37 mmol/L L=21 H=32 CALCIUM 9.7 mg/dL L=8.5 H=10.1 CBC W/ DIFF - Collect Date/Time: 07/07/2016 13:55 Test Name Code Test Result Test Units Test Ref Range WBC 11.2 x10^3 L=4.8 H=10.8 RBC 4.88 x10^6 L=4.20 H=5.40 HEMOGLOBIN 14.9 g/dL L=12.0 H=16.0 HEMATOCRIT 44.6 % L=37.0 H=47.0 MCV 91 fL L=80 H=100 MCH 30.6 pg L=27.0 H=33.0 MCHC 33.5 g/dL L=33.0 H=37.0 RDW 13.8 % L=11.5 H=14.5 PLATELETS 326 x10^3 L=150 H=450 MPV 8.2 fL L=7.8 H=11.0 NEUTROPHILS 58.2 % L=40.0 H=80.0 LYMPHOCYTES 25.8 % L=20.0 H=45.0 MONOCYTES 6.0 % L=0.0 H=10.0 EOSINOPHILS 4.7 % L=0.0 H=5.0 BASOPHILS 5.3 % L=0.0 H=2.0 REFLEX MAN DIFF NO N/A Active Medications Medication Code Dose Units Frequency Route Modification Start Date/Time Levaquin 521423 500 MILLIGRAMS DAILY BY 01/20/2016 500MG Oral MOUTH 13:44 Tablet Prescription Detail TAKE 500 MILLIGRAMS BY MOUTH DAILY FOR 7 DAYS Advair Diskus 250/50 [id number] 1 EACH TWICE A INHALATION 01/20/2016 0.25MG-0.05MG/1INH DAY 13:43 Inhalation Disk Prescription Detail 1 EACH INHALATION TWICE A DAY Albuterol 651678 1 EACH EVERY 4 INHALATION 01/20/2016 Sulfate HRS PRN 13:43 1.25MG/3ML Inhalation Solution Prescription Detail 1 EACH INHALATION EVERY 4 HRS PRN Aspirin 81MG [id number] 81 MILLIGRAMS DAILY ORAL 01/20/2016 Oral Tablet, 13:43 Enteric Coated Prescription Detail 81 MILLIGRAMS ORAL DAILY Benadryl [id number] 25 MILLIGRAMS EVERY 4 ORAL 01/20/2016 Allergy 25MG HRS PRN 13:43 Oral Tablet Prescription Detail 25 MILLIGRAMS ORAL EVERY 4 HRS PRN Calcium 600 216677 600 MG DAILY ORAL 01/20/2016 13:43 MG Oral Tablet Prescription Detail 600 MG ORAL DAILY Ibuprofen 403656 400 MILLIGRAMS AM AND ORAL 01/20/2016 200MG Oral PRN 13:43 Tablet Prescription Detail 400 MILLIGRAMS ORAL AM AND PRN Levothyroxine 50MCG 351334 50 MCG DAILY ORAL 01/20/2016 Oral Tablet 13:43 Prescription Detail 50 MCG ORAL DAILY Lisinopril 20MG 252004 20 MILLIGRAMS DAILY ORAL 01/20/2016 Oral Tablet 13:43 Prescription Detail 20 MILLIGRAMS ORAL DAILY MAGNESIUM 0 400 MILLIGRAMS DAILY BY MOUTH 01/20/2016 13:43 Prescription Detail TAKE 400 MILLIGRAMS BY MOUTH DAILY Meloxicam 15MG 056205 15 MILLIGRAMS AT BEDTIME ORAL 01/20/2016 Oral Tablet 13:43 Prescription Detail 15 MILLIGRAMS ORAL AT BEDTIME Multi-Day Oral [id number] 1 EACH DAILY ORAL 01/20/2016 Tablet 13:43 Prescription Detail 1 EACH ORAL DAILY [place] 5MG-325MG 663613 1 EACH EVERY 4 HRS ORAL 01/20/2016 Oral Tablet PRN 13:43 Prescription Detail 1 EACH ORAL EVERY 4 HRS PRN Potassium 99 MG 494578 99 MG DAILY ORAL 01/20/2016 Oral Tablet 13:43 Prescription Detail 99 MG ORAL DAILY Triamterene/Hydrochlorothiazide 538300 1 EACH DAILY ORAL 01/20/2016 37.5MG-25MG Oral Tablet 13:43 Prescription Detail 1 EACH ORAL DAILY Ventolin HFA 793110 2 Puffs EVERY 4 INHALATION 01/20/2016 0.09MG/1INH [...] Encounters Encounter Diagnosis Diagnosis Code Start Date Other fatigue [id number] 07/07/2016 Social History Smoking Status Code Start Date End Date Never smoker [id number] Patient Decision Aids Unknown or Not Available. Discharge Instructions You were admitted to [facility] on 07/07/2016 13:32 with a principal diagnosis of Other fatigue You had the following tests done: BASIC METABOLIC CBC W/ DIFF You were discharged from [facility] on 07/07/2016 13:32 Should you have any questions prior to [...]
--- OUTSIDE RECORDS SUMMARY | 2017-06-21 10:55 | External Medical Summary | CCD ---
:1945 Author Name NATALI DANIELS Address [address], [place] [id number] Care Team Providers Name Role Phone SUSAN NAGY Attending Physician Unavailable LISA SMITH (Secondary) Physician Unavailable Catalina, MARIANA Registered Nurse Unavailable B., JACKLYN Registered Nurse Unavailable C., OVIDIO Dominguez Nursing Staff Unavailable H., EVARISTO Morrison Registered Nurse Unavailable T., CYNTHIA Morrison Registered Nurse Unavailable W., ALMA ROSA Escobedo Registered Nurse Unavailable M., DEANNA Burgos Registered Nurse Unavailable N., EDDIE Registered Nurse Unavailable Vital Signs Vital Sign Value Unit Date/Time Recent/Initial? Weight Measured 261 lbs 01/16/2016 14:10 Initial VS Height 66 in 01/16/2016 14:10 Initial VS BMI (Body Mass 42.13 kg/m^2 01/16/2016 14:10 Initial VS Index) BSA (Body Surface 2.35 m^2 01/16/2016 14:10 Initial VS Area) BP Systolic 131 mmHg 01/16/2016 14:10 Initial VS BP Diastolic 74 mmHg 01/16/2016 14:10 Initial VS Respiratory Rate 18 bpm 01/16/2016 14:10 Initial VS Heart Rate 68 bpm 01/16/2016 14:10 Initial VS O2 % BldC Oximetry 94 % 01/16/2016 14:10 Initial VS Body Temperature 97.8 degrees 01/16/2016 14:10 Initial VS Weight Measured 260 lbs 01/17/2016 07:02 Most Recent VS Height 66 in 01/17/2016 07:02 Most Recent VS BMI (Body Mass 41.96 kg/m^2 01/17/2016 07:02 Most Recent VS Index) BSA (Body Surface 2.34 m^2 01/17/2016 07:02 Most Recent VS Area) Respiratory Rate 18 bpm 01/20/2016 08:00 Most Recent VS Heart Rate 72 bpm 01/20/2016 08:00 Most Recent VS Body Temperature 97.8 degrees 01/20/2016 08:00 Most Recent VS BP Systolic 160 mmHg 01/20/2016 09:30 Most Recent VS BP Diastolic 84 mmHg 01/20/2016 09:30 Most Recent VS O2 % BldC Oximetry 92 % 01/20/2016 09:30 Most Recent VS Allergies Allergy Code Allergy Type Reaction Status IODINE 5933 Drug allergy Active Procedures Unknown or Not Available. History of Immunizations Immunization Code Date Pneumococcal conjugate PCV 13 133 10/25/2015 Problems Unknown or Not Available. Results BASIC METABOLIC - Collect Date/Time: 01/20/2016 07:30 Test Name Code Test Result Test Units Test Ref Range GLUCOSE 301 mg/dL L=70 H=110 BUN 23 mg/dL L=7 H=18 CREATININE 0.67 mg/dL L=0.60 H=1.30 AGE 70 YEARS GFR 86.5 SODIUM 138 mmol/L L=136 H=145 POTASSIUM 4.5 mmol/L L=3.5 H=5.1 CHLORIDE 99 mmol/L L=98 H=107 CO2 34 mmol/L L=21 H=32 CALCIUM 9.8 mg/dL L=8.5 H=10.1 COMP METABOLIC - Collect Date/Time: 01/17/2016 07:30 Test Name Code Test Result Test Units Test Ref Range GLUCOSE 182 mg/dL L=70 H=110 BUN 14 mg/dL L=7 H=18 CREATININE 0.72 mg/dL L=0.60 H=1.30 AGE 70 YEARS GFR 79.6 SODIUM 143 mmol/L L=136 H=145 POTASSIUM 5.0 mmol/L L=3.5 H=5.1 CHLORIDE 102 mmol/L L=98 H=107 CO2 34 mmol/L L=21 H=32 CALCIUM 8.9 mg/dL L=8.5 H=10.1 AST 30 U/L L=15 H=37 ALT 41 U/L L=12 H=78 ALKALINE PHOS 101 U/L L=50 H=136 TOTAL PROTEIN 7.2 g/dL L=6.4 H=8.2 ALBUMIN 3.3 g/dL L=3.4 H=5.0 TOTAL BILI 0.40 mg/dL L=0.00 H=1.00 CBC W/ DIFF - Collect Date/Time: 01/20/2016 07:30 Test Name Code Test Result Test Units Test Ref Range WBC 13.4 x10^3 L=4.8 H=10.8 RBC 5.40 x10^6 L=4.20 H=5.40 HEMOGLOBIN 15.8 g/dL L=12.0 H=16.0 HEMATOCRIT 49.8 % L=37.0 H=47.0 MCV 92 fL L=80 H=100 MCH 29.2 pg L=27.0 H=33.0 MCHC 31.8 g/dL L=33.0 H=37.0 RDW 14.3 % L=11.5 H=14.5 PLATELETS 252 x10^3 L=150 H=450 MPV 8.8 fL L=7.8 H=11.0 NEUTROPHILS 93.2 % L=40.0 H=80.0 LYMPHOCYTES 6.1 % L=20.0 H=45.0 MONOCYTES 0.5 % L=0.0 H=10.0 EOSINOPHILS 0.2 % L=0.0 H=5.0 BASOPHILS 0.0 % L=0.0 H=2.0 SEG 90 %% L=40 H=80 BAND 4 %% L=0 H=5 LYMPH 4 LC%% L=20 H=45 MONO 2 %% L=0 H=10 EOS 0 %% L=0 H=5 BASO 0 %% L=0 H=2 ATYP LYMPH 0 %% L=0 H=10 META 0 %% L=0 H=1 REFLEX MAN DIFF YES N/A RBC MORPHOLOGY NORMAL N/A CBC W/ DIFF - Collect Date/Time: 01/19/2016 07:18 Test Name Code Test Result Test Units Test Ref Range WBC 14.1 x10^3 L=4.8 H=10.8 RBC 5.26 x10^6 L=4.20 H=5.40 HEMOGLOBIN 15.5 g/dL L=12.0 H=16.0 HEMATOCRIT 47.8 % L=37.0 H=47.0 MCV 91 fL L=80 H=100 MCH 29.4 pg L=27.0 H=33.0 MCHC 32.4 g/dL L=33.0 H=37.0 RDW 13.7 % L=11.5 H=14.5 PLATELETS 307 x10^3 L=150 H=450 MPV 8.0 fL L=7.8 H=11.0 NEUTROPHILS 92.7 % L=40.0 H=80.0 LYMPHOCYTES 5.3 % L=20.0 H=45.0 MONOCYTES 0.4 % L=0.0 H=10.0 EOSINOPHILS 0.0 % L=0.0 H=5.0 BASOPHILS 1.6 % L=0.0 H=2.0 SEG 93 %% L=40 H=80 BAND 0 %% L=0 H=5 LYMPH 7 %% L=20 H=45 MONO 0 %% L=0 H=10 EOS 0 %% L=0 H=5 BASO 0 %% L=0 H=2 ATYP LYMPH 0 %% L=0 H=10 META 0 %% L=0 H=1 REFLEX MAN DIFF YES N/A RBC MORPHOLOGY NORMAL N/A CBC W/ DIFF - Collect Date/Time: 01/17/2016 07:30 Test Name Code Test Result Test Units Test Ref Range WBC 8.1 x10^3 L=4.8 H=10.8 RBC 5.07 x10^6 L=4.20 H=5.40 HEMOGLOBIN 15.2 g/dL L=12.0 H=16.0 HEMATOCRIT 47.1 % L=37.0 H=47.0 MCV 93 fL L=80 H=100 MCH 29.9 pg L=27.0 H=33.0 MCHC 32.2 g/dL L=33.0 H=37.0 RDW 14.5 % L=11.5 H=14.5 PLATELETS 273 x10^3 L=150 H=450 MPV 8.0 fL L=7.8 H=11.0 NEUTROPHILS 84.0 % L=40.0 H=80.0 LYMPHOCYTES 14.9 % L=20.0 H=45.0 MONOCYTES 0.8 % L=0.0 H=10.0 EOSINOPHILS 0.2 % L=0.0 H=5.0 BASOPHILS 0.1 % L=0.0 H=2.0 SEG 80 %% L=40 H=80 BAND 8 %% L=0 H=5 LYMPH 7 %% L=20 H=45 MONO 5 %% L=0 H=10 EOS 0 %% L=0 H=5 BASO 0 %% L=0 H=2 ATYP LYMPH 0 %% L=0 H=10 META 0 %% L=0 H=1 REFLEX MAN DIFF YES N/A RBC MORPHOLOGY NORMAL N/A UA AUTO W/ MICRO - Collect Date/Time: 01/18/2016 20:30 Test Name Code Test Result Test Units Test Ref Range COLOR Yellow N/A NORMAL: Yellow APPEARANCE Clear N/A NORMAL: Clear GLUCOSE >=1000 N/A NORMAL: Negative BILIRUBIN Negative N/A NORMAL: Negative KETONE Negative N/A NORMAL: Negative SPEC GRAVITY <=1.005 N/A NORMAL: 1.005-1.030 BLOOD Negative N/A NORMAL: Negative PROTEIN Negative N/A NORMAL: Negative PH 5.5 N/A NORMAL: 5.0-8.0 UROBILINOGEN 0.2 N/A NORMAL: Negative NITRITE Negative N/A NORMAL: Negative LEUKOCYTES Negative N/A NORMAL: Negative MICRO RBC None Seen N/A NORMAL: 0-2 MICRO WBC 0-2 N/A NORMAL: 0-2 BACTERIA None Seen N/A NORMAL: None-Trace EPI CELLS 0-5 N/A NORMAL: 0-15 MUCUS None Seen N/A NORMAL: None-Small AMORPHOUS None Seen N/A NORMAL: None Seen YEAST None Seen N/A NORMAL: None Seen CRYSTALS None Seen N/A NORMAL: None Seen CAST None Seen N/A NORMAL: None Seen URINE CULTURE? NO N/A Active Medications Medication Code Dose Units Frequency Route Modification Start Date/Time Levaquin [id number] 500 MILLIGRAMS DAILY BY 01/20/2016 500MG Oral MOUTH 13:44 Tablet Prescription Detail TAKE 500 MILLIGRAMS BY MOUTH DAILY FOR 7 DAYS Advair Diskus 250/50 265919 1 EACH TWICE A INHALATION 01/20/2016 0.25MG-0.05MG/1INH DAY 13:43 Inhalation Disk Prescription Detail 1 EACH INHALATION TWICE A DAY Albuterol 923578 1 EACH EVERY 4 INHALATION 01/20/2016 Sulfate HRS PRN 13:43 1.25MG/3ML Inhalation Solution Prescription Detail 1 EACH INHALATION EVERY 4 HRS PRN Aspirin 81MG 126936 81 MILLIGRAMS DAILY ORAL 01/20/2016 Oral Tablet, 13:43 Enteric Coated Prescription Detail 81 MILLIGRAMS ORAL DAILY Benadryl 4333471 25 MILLIGRAMS EVERY 4 ORAL 01/20/2016 Allergy 25MG HRS PRN 13:43 Oral Tablet Prescription Detail 25 MILLIGRAMS ORAL EVERY 4 HRS PRN Calcium 600 470389 600 MG DAILY ORAL 01/20/2016 13:43 MG Oral Tablet Prescription Detail 600 MG ORAL DAILY Ibuprofen 483602 400 MILLIGRAMS AM AND ORAL 01/20/2016 200MG Oral PRN 13:43 Tablet Prescription Detail 400 MILLIGRAMS ORAL AM AND PRN Levothyroxine 50MCG 898257 50 MCG DAILY ORAL 01/20/2016 Oral Tablet 13:43 Prescription Detail 50 MCG ORAL DAILY Lisinopril 20MG 958739 20 MILLIGRAMS DAILY ORAL 01/20/2016 Oral Tablet 13:43 Prescription Detail 20 MILLIGRAMS ORAL DAILY MAGNESIUM 0 400 MILLIGRAMS DAILY BY MOUTH 01/20/2016 13:43 Prescription Detail TAKE 400 MILLIGRAMS BY MOUTH DAILY Meloxicam 15MG 215333 15 MILLIGRAMS AT BEDTIME ORAL 01/20/2016 Oral Tablet 13:43 Prescription Detail 15 MILLIGRAMS ORAL AT BEDTIME Multi-Day Oral [id number] 1 EACH DAILY ORAL 01/20/2016 Tablet 13:43 Prescription Detail 1 EACH ORAL DAILY [place] 5MG-325MG 850784 1 EACH EVERY 4 HRS ORAL 01/20/2016 Oral Tablet PRN 13:43 Prescription Detail 1 EACH ORAL EVERY 4 HRS PRN Potassium 99 MG 537146 99 MG DAILY ORAL 01/20/2016 Oral Tablet 13:43 Prescription Detail 99 MG ORAL DAILY Triamterene/Hydrochlorothiazide 917267 1 EACH DAILY ORAL 01/20/2016 37.5MG-25MG Oral Tablet 13:43 Prescription Detail 1 EACH ORAL DAILY Ventolin HFA 876325 2 Puffs EVERY 4 INHALATION 01/20/2016 0.09MG/1INH [...] BY MOUTH DAILY Medications Administered During Visit Medication Dose Units Frequency Route Date/Time of Last Dose ENOXAPARIN (LOVENOX) INJ 40 MG QD SQ 01/19/2016 : 10MG/.1 ML 16:28 DUONEB INHALATION 3 ML QID NEBULIZER 01/20/2016 VIAL:2.5-0.5 MG 3 ML 11:00 CEFTRIAXONE/NS IVPB: 1 1 GM Q24H IVPB 01/17/2016 GM/50 ML 14:36 AZITHROMYCIN (ZITHROMAX) 500 MG QD PO 01/19/2016 TAB : 250MG 17:54 SALINE 10ML SYRINGE 10 ML PRN IV PUSH 01/16/2016 22:49 DIPHENHYDRAMINE 25 MG PRN Q4H PO 01/20/2016 (BENADRYL) TAB : 25MG 02:46 LEVOTHYROXINE 50 MCG DAILY PO 01/20/2016 (SYNTHROID) TAB : 25MCG 10:09 LISINOPRIL (PRINIVIL) 20 MG QD PO 01/20/2016 TAB : 10MG 07:56 NF-Magnesium Oxide 400 MG DAILY PO 01/20/2016 Tablet 400MG 07:56 CALCIUM WITH VITAMIN D 1 TAB DAILY PO 01/20/2016 TAB:500 MG-200 IU 07:54 ASPIRIN CHEWABLE TAB: 81 81 MG QD PO 01/20/2016 MG 07:54 NF-Potassium Tablet 99MG 99 MG DAILY ORAL 01/20/2016 07:54 KZ-Nkzgt-Dks Tablet 1 EA DAILY ORAL 01/20/2016 07:56 GUAIFENESIN LA (MUCINEX) 600 MG BID PO 01/20/2016 TAB : 600 MG 10:09 TRIAMTERENE/HCT 1 TAB QD PO 01/20/2016 (DYAZIDE)TAB:37.5/25 MG 07:55 ADVAIR DISKUS INH: 1 PUFF BID INH 01/20/2016 250-50 10:09 MELOXICAM (MOBIC) TAB: 15 MG QD PO 01/19/2016 15 MG 22:11 METHYLPREDNISOLONE (SOLU 125 MG BID IVP 01/18/2016 MEDR)INJ: 125MG 10:39 METHYLPREDNISOLONE (SOLU 125 MG X1 IVP 01/16/2016 MEDR)INJ: 125MG 22:52 SALINE FLUSH 10ML 10 ML PRN IV PUSH 01/18/2016 SYRINGE : IV 10:39 CEFTRIAXONE (ROCEPHIN) 1 GM DAILY IM 01/19/2016 INJ :1 GRAM 15:14 METHYLPREDNISOLONE (SOLU 125 MG BID IM 01/19/2016 MEDR)INJ: 125MG 22:11 Encounters Encounter Diagnosis Diagnosis Code Start Date Pneumonia, unspecified organism [id number] 01/16/2016 Social History Smoking Status Code Start Date End Date Never smoker [id number] Patient Decision Aids Patient Decision Aid Patient Portal Access Discharge Instructions You were admitted to [facility]; [facility] on 01/16/2016 14:04 with a principal diagnosis of Pneumonia, unspecified organism You had the following tests done: BASIC METABOLIC CBC W/ DIFF CBC W/ DIFF CBC W/ DIFF COMP METABOLIC UA AUTO W/ MICRO You were discharged from [facility]; [facility] on 01/20/2016 13:53 Should you have any questions prior to discharge, please contact a member of your healthcare team. If you have left the hospital and have any questions, please contact your primary care physician. DIET: REGULAR. Discharge To: Home. Mode of Transportation: Wheelchair. Accompanied By: Spouse/SO. Mental Status: Alert & oriented. Bowel/Bladder Status: No problem. Medication Instruction:Pt/Family Member: Prescriptions given to patient, LEVJAVADUIN Activities: NOTE SENT TO EXCUSE FROM WORK Follow up Appointment: FOLLOW UP 1-2 WEEKS Continuing Needs Are Met By: Patient, Spouse. Temperature: Afebrile. Skin Integrity: Intact. Pulmonary Status: WEAR OXYGEN CONTINUOUSLY AT 2 L NC Elimination: Voiding without difficulty. Immunizations: PREVNAR VACCINE CURRENT General Instructions/Notify Physician: IF SYMPTOMNS CHANGE FOR THE WORSE, GO TO THE ER OR CALL PRIMARY CARE PROVIDER DURING WORKING HOURS Service Upon Discharge: None. Chief Complaint and Reason For Visit Chief Complaint Date of Onset BILAT PNEUMONIA Function Status Unknown or Not Available. Plan of Care Unknown or Not Available. Referral/Transition of Care Unknown or Not Available.
[2017-06-21] MEDS: SALINE FLUSH 10ml SYRINGE IVF PRN ×2 (11:09→21:43)
--- NOTE | 2017-06-21 11:31 | XRay Report ---
LOCATION OF DICTATION: [facility] EXAM: XR chest 2V HISTORY: shortness of air difficulty breathing COMPARISON: January 23, 2017 FINDINGS: The heart is mildly enlarged. Central pulmonary vasculature is stable in appearance. There are stable small bilateral pleural effusions with subjacent atelectasis again noted. IMPRESSION: 1. Mild cardiomegaly and possible congestive changes with stable small bilateral pleural effusions and subjacent atelectasis. .
[2017-06-21] MEDS ORDERED: HYDROCODONE/APAP 5mg/325mg TABLET PO PRN (13:44)
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
[2017-06-21] MEDS ORDERED: SALINE FLUSH 10ml SYRINGE ONE (14:51)
[2017-06-21 15:54] VITALS: BMI 42.3
--- NOTE | 2017-06-21 16:27 | Nuclear Medicine Report ---
EXAM: NM pul vent and perfuse LOCATION OF DICTATION: [facility] HISTORY: SOB in a pt with multiple PE's COMPARISON: None available. TECHNIQUE: With administration of approximately 41.7 mCi of technetium 99m DTPA sequential eight orthogonal images of the lungs were obtained. Then, approximately 6.6 mCi of Technetium 99m MAA was administered and eight standard views of the lungs were obtained. FINDINGS: No peripheral wedge shaped mismatched perfusion defects are identified to suggest pulmonary embolism. Unremarkable appearance to the ventilation portion of the exam. Normal hilar defects are noted. IMPRESSION: Low probability for pulmonary embolism. .
[2017-06-21] MEDS: CALCIUM CARBONATE 500 MG TABLET PO SCH (18:05)
[2017-06-21] MEDS: OMEPRAZOLE 20 MG CAPSULE PO SCH (18:05)
[2017-06-21] MEDS ORDERED: RIVAROXABAN 20 MG TABLET PO SCH (21:00)
[2017-06-21] MEDS: ALBUTEROL/IPRATROPIUM 2.5mg-0.5mg/3ml NEB ORAL INH SCH (21:06)
[2017-06-21] MEDS: MAGNESIUM OXIDE 400 MG TABLET PO SCH (21:43)
[2017-06-21] MEDS: FUROSEMIDE 20 MG/2 ML INJECTION IVP SCH (21:43)
[2017-06-22] MEDS: LEVOTHYROXINE 50 MCG TABLET PO SCH (05:36)
[2017-06-22] MEDS: OMEPRAZOLE 20 MG CAPSULE PO SCH ×2 (05:36→16:18)
[2017-06-22] MEDS: FUROSEMIDE 20 MG/2 ML INJECTION IVP SCH (09:09)
[2017-06-22] MEDS: MAGNESIUM OXIDE 400 MG TABLET PO SCH ×2 (09:10→20:31)
[2017-06-22] MEDS: CALCIUM CARBONATE 500 MG TABLET PO SCH (09:10)
[2017-06-22] MEDS: LISINOPRIL 20 MG TABLET PO SCH (09:11)
[2017-06-22] MEDS: TRIAMTERENE/HCTZ 37.5 MG-25 MG TABLET PO SCH (09:12)
[2017-06-22] MEDS: MULTI-VITAMIN PLAIN TABLET PO SCH (09:12)
--- NOTE | 2017-06-22 10:37 | Progress Note ---
Subjective: Pt states she is feeling much better. No SOB, no CP, no cough. Objective Vital signs: Temperature 96.3 F L 06/22/17 08:00 Pulse Rate 88 06/22/17 08:00 Respiratory Rate 16 06/22/17 08:00 Blood Pressure 137/64 06/22/17 08:00 Pulse Oximetry 90 06/22/17 08:00 Rhythm: Normal Sinus Rhythm Height/Weight/BMI: Height 5 ft 6 in Weight 117.4 kg Body Mass Index 42.3 - Constitutional Present: no acute distress, obese - Routine HEENT Exam Head: Present: normocephalic, atraumatic Eye: Present: EOMI, PERRL - Routine Respiratory Exam Present: CTA bilaterally - Routine Cardiovascular Exam Present: RRR, S1, S2 - Routine Abdominal Exam Present: soft, non distended, non tender - Routine Extremities Exam Present: edema. Absent: cyanosis, clubbing - Routine Neurological Exam Present: alert, oriented X3, CN II-XII intact - Routine Psychiatric Exam Present: normal affect, good insight, good judgment Results - Labs CBC & Chem 7: 06/22/17 05:27 06/22/17 05:27 Assessment and Plan Assessment and Plan: SUMMARY Dot is a 71 YO female with previous H.O PE at least x 2, who is on Xarelto and has been compliant. She has H.O CHF (? of R sided ?) is not on BB but on ACEI, has H.O COPD (Negative H.O Smoking) and came with ? of early pulmonary edema, was diuresed and is feeling better. Had an episode of CP prior to admission, with normal initial TnI and EKG. Since admission pt has diuresed well and is feeling much improved. Diagnosis 1) CHF - Diuresing well, will change diuretic to PO. - SOB much improved. 2) Atypical CP - initial TnI and EKG are normal. - TnI x 3 NEGATIVE. - Pt states has had 2 heart cath's in the past - No CP, does not need any further cardiac workup at present. 3) COPD with possible superimposed CARLA and chronic CO2 retention. - Continue with Duonebs, continue Advair - ABG show elevated CO2 with normal pH pointing a chronic CO2 retention. -Check nocturnal pulse Ox. 4) Thrombophillia - 2 PE's in the past V/Q scan low probability for PE - Continue with Xarelto. 5) Obesity and "Borderline diabetes' - HbA1c is normal. - Lipids done and pending. Prevention - Add PPI - Continue Xarelto. - Time spent with patient 25 - 35 minutes Sepsis Assessment - Evaluation Sepsis screening result: No Definite Risk Hospital Course Summary Disclaimer: The visit summary below is not to be considered part of the above Progress Note.
[2017-06-22] MEDS: ALBUTEROL/IPRATROPIUM 2.5mg-0.5mg/3ml NEB ORAL INH SCH ×3 (10:59→18:54)
[2017-06-22] MEDS ORDERED: PNEUMOCOCCAL VAC ADMIN CHARGE INJ ONE (14:00)
[2017-06-22] MEDS ORDERED: PNEUMOCOCCAL 23 VACCINE 0.5ml INJECTION IM ONE (14:14)
[2017-06-22] MEDS: FUROSEMIDE 20 MG TABLET PO SCH (16:19)
[2017-06-22] MEDS ORDERED: RIVAROXABAN 20 MG TABLET PO SCH (17:30)
[2017-06-23] MEDS: LEVOTHYROXINE 50 MCG TABLET PO SCH (05:56)
[2017-06-23] MEDS: OMEPRAZOLE 20 MG CAPSULE PO SCH (05:56)
[2017-06-23] MEDS: ALBUTEROL/IPRATROPIUM 2.5mg-0.5mg/3ml NEB ORAL INH SCH (07:18)
[2017-06-23 07:31] VITALS: BP 144/71; PULSE 88; RESP 18; TEMP 96.6; O2SAT 90
[2017-06-23] MEDS: MULTI-VITAMIN PLAIN TABLET PO SCH (09:21)
[2017-06-23] MEDS: FUROSEMIDE 20 MG TABLET PO SCH (09:21)
[2017-06-23] MEDS: CALCIUM CARBONATE 500 MG TABLET PO SCH (09:21)
[2017-06-23] MEDS: MAGNESIUM OXIDE 400 MG TABLET PO SCH (09:21)
[2017-06-23] MEDS: LISINOPRIL 20 MG TABLET PO SCH (09:22)
[2017-06-23] MEDS: TRIAMTERENE/HCTZ 37.5 MG-25 MG TABLET PO SCH (09:22)
[2017-06-23] MEDS ORDERED: ALBUTEROL SULFATE 1.25 MG AEROSOL PRN (09:40)
[2017-06-23] MEDS ORDERED: ZINC ACET TOP PRN (09:40)
[2017-06-23] MEDS ORDERED: [UNRECOGNIZED DRUG - OTHER] TOP PRN (09:40)
[2017-06-23] MEDS ORDERED: DIPHENHYDRAMINE HCL TOP PRN (09:40)
--- NOTE | 2017-06-23 09:45 | Discharge Instructions ---
Discharge Plan - Med Rec/Dispo [facility] Instructions: Heart Failure (GEN), Sleep Apnea (GEN) Prescriptions: New Furosemide [Lasix] 20 mg PO 0900,1700 30 Days #60 tab Albuterol/Ipratropium [Duoneb] 3 ml ORAL INH RTQID 30 Days #120 neb Omeprazole [Prilosec] 20 mg PO ACBID capsule Continue Fluticasone/Salmeterol [Advair 250-50 Diskus] 1 puff INH DAILY PRN #0 PRN Reason: Prn Orders Magnesium Oxide [Magnesium] 500 mg PO BID #0 Calcium Carbonate [Calcium] 500 mg PO DAILY #0 Lisinopril 20 mg PO DAILY #30 tab Rivaroxaban [Xarelto] 20 mg PO HS Potassium Chloride 10 meq PO DAILY Hydrocodone/APAP 5/325 [[place] 5/325] 1 tab PO Q4H PRN PRN Reason: Pain Triamterene/Hctz 37.5/25 Tab [MAXZIDE-25 eqv] 1 tab PO DAILY Levothyroxine Sodium 50 mcg PO ACB #0 Albuterol Sulfate [Proair Hfa] 1 puff INH Q4H PRN #0 PRN Reason: Prn Orders diphenhydrAMINE HCl [Diphenhydramine HCl] 25 mg PO BID #0 Cinnamon Bark [Cinnamon] 500 mg PO DAILY #0 Multivitamin [Multi-Day Vitamins] 1 tab PO DAILY #0 Diphenhydramine HCl/Zinc Acet [Benadryl Itch Stopping Crm] 1 applic TOP TID PRN #1 tube PRN Reason: ITCHING Discontinued Furosemide 40 mg PO DAILY #30 tab Meloxicam [Meloxicam] 7.5 mg PO HS Albuterol Sulfate 1.25 mg AEROSOL Q4H PRN #0 PRN Reason: Prn Orders Acetaminophen [Acetaminophen 8 Hour] 1,300 mg PO QAM PRN #0 PRN Reason: PAIN - Disposition 01 Discharged Home, Self-Care
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
[2017-06-23] MEDS ORDERED: DIPHENHYDRAMINE HCL 25 MG PO SCH (21:00)
[2017-06-24] MEDS ORDERED: NON-FORMULARY MEDICATION 1 EACH EACH (Cinnamon Bark [Cinnamon] 500 MG) PO SCH (09:00)
== END 2017-06-23 11:20 | disposition home or self-care (01) | DRG 292 ==
LOC: ED 09:59 → MED 14:02
PROVIDERS: ADMIT Internal Medicine; ATTEND Internal Medicine